=== PATIENT | male | born 1945 | race Caucasian/White ===

== ENCOUNTER 2017-05-31 09:54 | Emergency (ER) | payer MEDICARE, BC ==
[~2017-05-31] VITALS: Ht 182.9 cm; Wt 82.0 kg
[~2017-05-31 09:54] MED LIST: CYCL-36 PO; SERT25TA83 PO; TRAM50 PO
[2017-05-31 10:05] VITALS: BP 139/65; PULSE 62; RESP 16; TEMP 97.3; O2SAT 100
[2017-05-31] MEDS ORDERED: FLUO-1 PO (10:20)
--- NOTE | 2017-05-31 10:57 | PD ---
HPI Chief Complaint: Lump, Cyst, Hernia Time Seen by Provider: 10:24 Travel History International Travel<30 days: No Contact w/Intl Traveler<30days: No Traveled to known affect area: No History of Present Illness HPI This 71-year-old male is complaining of right inguinal pain. He has had several episodes of pain in the right inguinal area. They seem to be aggravated by certain movements. He had seen his physician a few weeks ago and was told that he had an inguinal hernia. He did have a CT scan of his abdomen and pelvis here in 2014 which showed that he had bilateral fat-containing hernias in the inguinal areas. There has not been any vomiting or diarrhea. He is not having pain right now. He is leaving town in a few days and is concerned that the pain may recur. He has a history of kidney stones. He has also had deep vein thrombosis and has been on Coumadin for the past though he is not on it now area. On his CAT scan in March 2015 he had right-sided perinephric stranding and mild hydronephrosis and hydroureter but no evidence of a ureteral stone. PFSH Past Medical History Depression: Yes Diminished Hearing: No Deep Vein Thrombosis: Yes Inguinal Hernia: Yes Tetanus Vaccination: Unknown Influenza Vaccination: No Social History Alcohol Use: Yes (BEER, OCCASIONALLY) Tobacco Use: No Substance Use: No Allergies-Medications (Allergen,Severity, Reaction): Coded Allergies: No Known Allergies (Unverified , 05/31/17) Reported Meds & Prescriptions Reported Meds & Active Scripts Active Reported Prozac (Fluoxetine HCl) 10 Mg Cap 10 Mg PO HS Review of Systems General / Constitutional: No: Fever, Chills Respiratory: No: Cough Gastrointestinal: No: Vomiting, Diarrhea Genitourinary: No: Urgency, Frequency, Hematuria Musculoskeletal: No: Myalgias, Arthralgias Skin: No Rash, No Itching Neurologic: No: Weakness Hematologic/Lymphatic: No: Easy Bruising Physical Exam Narrative GENERAL: Well-developed male SKIN: Focused skin assessment warm/dry. HEAD: Atraumatic. Normocephalic. EYES: Pupils equal and round. No scleral icterus. No injection or drainage. ENT: No nasal bleeding or discharge. Mucous membranes pink and moist. NECK: Trachea midline. No JVD. CARDIOVASCULAR: Regular rate and rhythm. No murmur appreciated. RESPIRATORY: No accessory muscle use. Clear to auscultation. Breath sounds equal bilaterally. GASTROINTESTINAL: Abdomen soft, non-tender, nondistended. Hepatic and splenic margins not palpable. I do not feel any inguinal hernia laying or standing. MUSCULOSKELETAL: No obvious deformities. No clubbing. No cyanosis. No edema. NEUROLOGICAL: Awake and alert. No obvious cranial nerve deficits. Motor grossly within normal limits. Normal speech. PSYCHIATRIC: Appropriate mood and affect; insight and judgment normal. Data Data Last Documented VS Vital Signs Date Time Temp Pulse Resp B/P (MAP) Pulse Ox O2 Delivery O2 Flow Rate FiO2 05/31/17 10:18 16 05/31/17 10:05 97.3 62 139/65 (89) 100 Orders Orders Complete Blood Count With Diff (05/31/17 10:49) Comprehensive Metabolic Panel (05/31/17 10:49) Urinalysis - C+S If Indicated (05/31/17 10:49) Ct Abd/Pel W Iv Contrast(Rout) (05/31/17 10:49) Iohexol 350 Inj (Omnipaque 350 Inj) (05/31/17 12:12) Labs Laboratory Tests Test 05/31/17 11:13 05/31/17 11:30 White Blood Count 6.2 TH/MM3 Red Blood Count 5.20 MIL/MM3 Hemoglobin 15.1 GM/DL Hematocrit 45.7 % Mean Corpuscular Volume 87.9 FL Mean Corpuscular Hemoglobin 29.0 PG Mean Corpuscular Hemoglobin Concent 33.0 % Red Cell Distribution Width 13.1 % Platelet Count 154 TH/MM3 Mean Platelet Volume 6.9 FL Neutrophils (%) (Auto) 69.2 % Lymphocytes (%) (Auto) 20.4 % Monocytes (%) (Auto) 8.7 % Eosinophils (%) (Auto) 0.9 % Basophils (%) (Auto) 0.8 % Neutrophils # (Auto) 4.3 TH/MM3 Lymphocytes # (Auto) 1.3 TH/MM3 Monocytes # (Auto) 0.5 TH/MM3 Eosinophils # (Auto) 0.1 TH/MM3 Basophils # (Auto) 0.0 TH/MM3 CBC Comment DIFF FINAL Differential Comment Blood Urea Nitrogen 10 MG/DL Creatinine 0.93 MG/DL Random Glucose 106 MG/DL Total Protein 7.5 GM/DL Albumin 4.1 GM/DL Calcium Level 8.8 MG/DL Alkaline Phosphatase 50 U/L Aspartate Amino Transf (AST/SGOT) 19 U/L Alanine Aminotransferase (ALT/SGPT) 29 U/L Total Bilirubin 1.4 MG/DL Sodium Level 139 MEQ/L Potassium Level 4.0 MEQ/L Chloride Level 103 MEQ/L Carbon Dioxide Level 28.1 MEQ/L Anion Gap 8 MEQ/L Estimat Glomerular Filtration Rate 80 ML/MIN Urine Collection Type VOIDED Urine Color YELLOW Urine Turbidity CLEAR Urine pH 7.5 Urine Specific [place] 1.015 Urine Protein NEG mg/dL Urine Glucose (UA) NEG mg/dL Urine Ketones NEG mg/dL Urine Occult Blood NEG Urine Nitrite NEG Urine Bilirubin NEG Urine Leukocyte Esterase NEG Urine WBC 0-2 /hpf Microscopic Urinalysis Comment CULT NOT INDICATED MDM Medical Decision Making Medical Screen Exam Complete: Yes Emergency Medical Condition: Yes Medical Record Reviewed: Yes Differential Diagnosis Differential includes renal colic, hernia, space-occupying lesion, muscular strain Narrative Course On examination I did not find any evidence of hernia. Patient is very concerned because he is going away a few days and is concerned he might have episodes of pain. He does say that he had an episode while in the ER the last just a few minutes. This pain is not typical of incarcerated hernia. He does not notice any swelling. It may be musculoskeletal in origin. An evaluation was done. His CBC and urinalysis are negative. CT scan of the abdomen and pelvis was done to assess for other etiologies of the pain and is negative Diagnosis Primary Impression: Right inguinal pain Additional Instructions: Follow-up with general surgeon for evaluation Disposition: 01 DISCHARGE HOME Condition: Stable Gaetano Jones MD May 31, 2017 10:57
[2017-05-31 11:18] LABS: AUTOMATED NEUTROPHIL # 4.3 TH/MM3 (1.8-7.7); BASOPHIL % 0.8 % (0.0-2.0); EOSINOPHIL # 0.1 TH/MM3 (0-0.4); EOSINOPHIL % 0.9 % (0.0-4.0); HEMATOCRIT 45.7 % (39.0-51.0); HEMO FLAGS DIFF FINAL; LYMPH % 20.4 % (9.0-44.0); LYMPHOCYTE # 1.3 TH/MM3 (1.0-4.8); MEAN CELL VOLUME 87.9 FL (80.0-100.0); MONO % 8.7 % (0.0-8.0); NEUT % 69.2 % (16.0-70.0); PLATELET COUNT 154 TH/MM3 (150-450); RED CELL DISTRIBUTION WIDTH 13.1 % (11.6-17.2); WHITE BLOOD COUNT 6.2 TH/MM3 (4.0-11.0)
[2017-05-31 11:26] LABS: BLOOD, URINE NEG (NEG); GLUCOSE,URINE NEG (NEG); KETONE, URINE NEG (NEG); NITRITE,URINE NEG (NEG); PH, URINE 7.5 (5.0-8.5)
[2017-05-31 11:27] LABS: CHLORIDE 103 MEQ/L (98-107); SODIUM (NA) 139 MEQ/L (136-145)
[2017-05-31 11:31] LABS: ANION GAP 8 MEQ/L (5-15); BICARBONATE 28.1 MEQ/L (21.0-32.0); BLOOD UREA NITROGEN 10 MG/DL (7-18)
[2017-05-31 11:33] LABS: ALT (GPT) 29 U/L (12-78)
[2017-05-31 11:34] LABS: AST (GOT) 19 U/L (15-37); GLOMERULAR FILTRATION RATE 80 ML/MIN (>89)
[2017-05-31 11:35] LABS: TOTAL BILIRUBIN ADULT 1.4 MG/DL (0.2-1.0)
[2017-05-31 11:36] LABS: ALKALINE PHOSPHATASE 50 U/L (45-117)
[2017-05-31 11:47] LABS: COMMENT (UR) CULT NOT INDICATED; CULTURE IF INDICATED CULT NOT INDICATED; METHOD OF COLLECTION VOIDED; URINE COLOR YELLOW (YELLW/STRAW); WBC, URINE 0-2 /hpf (0-5)
[2017-05-31] MEDS ORDERED: IOHEXOL 350 MG/ML 10 ML VIAL (for RAD DIAG) IVCONTRAST ONE (12:12)
--- NOTE | 2017-05-31 12:18 | RADRPT ---
EXAM DATE/TIME: 05/31/2017 12:04 [facility] COMPARISON: CT ABDOMEN & PELVIS W/O CONTRAST, March 20, 2015, 17:32. INDICATIONS : Intermittent right inguinal pain for a few days. IV CONTRAST: 95 cc Omnipaque 350 (iohexol) IV ORAL CONTRAST: No oral contrast ingested. RADIATION DOSE: 15.55 CTDIvol (mGy) MEDICAL HISTORY : Deep venous thrombosis. Hernia, inguinal. SURGICAL HISTORY : None. ENCOUNTER: Initial ACUITY: 3 days PAIN SCALE: 6/10 LOCATION: Right imguinal TECHNIQUE: Volumetric scanning of the abdomen and pelvis was performed. Using automated exposure control and ad justment of the mA and/or kV according to patient size, radiation dose was kept as low as reasonably achievable to obtain optimal diagnostic quality images. DICOM format image data is available electro nically for review and comparison. FINDINGS: Lung bases are clear. Numerous calcified splenic granulomas are present. No pleural or pericardial ef fusions. Small cyst in the lateral segment left hepatic lobe. Gallbladder, pancreas, adrenal glands, right kidney unremarkable. Sub-centimeters left midpole kidney laterally. Atherosclerotic calcificati on of the aorta and iliac vessels are noted. Bilateral fat containing inguinal hernias. Prostate glan d is prominent measuring 5.7 x 4.5 cm in transverse and AP dimension. Urinary bladder unremarkable yo ur small bowel, large bowel and appendix are unremarkable. No evidence of bowel obstruction, free flu id or free air. Osseous structures demonstrate degenerative changes of the spine. CONCLUSION: No acute disease. Vadim Robin MD on May 31, 2017 at 12:15 Board Certified Radiologist. This report was verified electronically.
[2017-05-31 12:50] VITALS: BP 177/84; PULSE 56; RESP 16; O2SAT 100
== END 2017-05-31 12:55 | disposition home or self-care (01) ==
LOC: PHED 09:54
DX: R10.31 Right lower quadrant pain (principal); Z87.442 Personal history of urinary calculi; Z86.718 Personal history of other venous thrombosis and embolism
CPT/HCPCS: 74177; 80053; 81001; 85025; 99284; Q9967

== ENCOUNTER 2018-02-03 05:28 | Observation (INO) | payer MEDICARE, BC ==
[2018-02-03] VITALS (13 sets, daily range): BP systolic 132–171; BP diastolic 68–86; PULSE 47–72; RESP 16–20; TEMP 97.2–98; O2SAT 98–100
[~2018-02-03 05:28] MED LIST changes: -CYCL-36 PO; +FLUO-1 PO; -SERT25TA83 PO; -TRAM50 PO
[2018-02-03] MEDS ORDERED: SODIUM CHLORIDE 0.9% FLUSH 10 ML FLUSH IVF PRN (06:00)
[2018-02-03] MEDS ORDERED: NITROGLYCERIN 2% OINT 1 GM PACKET TOP ONE (06:00)
--- NOTE | 2018-02-03 06:02 | PD ---
HPI Chief Complaint: Chest Pain Time Seen by Provider: 05:56 Travel History International Travel<30 days: No Contact w/Intl Traveler<30days: No Traveled to known affect area: No History of Present Illness HPI 72-year-old male presents to the emergency department by EMS transport from home for evaluation of retrosternal chest pain. Pain onset around 11 PM prior to going to bed awakened at 1 AM reportedly with indigestion and heartburn gave him a dose of Tagamet with no improvement of symptoms at 2 AM she gave him baking soda again with no relief by 4 AM symptoms are worsening she given Pepto- Bismol and he insisted that he come to the hospital. Pain at onset was 10/10 intensity. According to paramedics they provided the patient with aspirin 324 mg prior to arrival to the emergency department and the patient received 3 sublingual nitroglycerin. Patient reports his discomfort now 2/10 intensity. No sweats no nausea no vomiting no shortness of breath no referred neck jaw back shoulder arm pain. No prior history of chest pain. Patient denies history of CAD hypertension dyslipidemia diabetes tobaccoism or family history of premature onset heart disease. Patient is followed for depression and pseudodementia. Patient is prescribed Prozac and trazodone. 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 Patient states that he is unable to identify exacerbating or alleviating factors. Patient according to is typically very private and does not like to share information so presents as a very stoic individual not sharing discomfort or symptoms easily but states she can substantiate his presentation and his symptom onset and duration as being present since 11 PM and his persona, speech , and behavior typical for him. No new change in mentation no new change in speech no new noted upper extremity or lower extremity numbness tingling or weakness PFSH Past Medical History Narrative Medical Anxiety depression pseudodementia inguinal herniorrhaphy occasional alcohol use ; nursing notes reviewed Anxiety: Yes Depression: Yes Diminished Hearing: No Deep Vein Thrombosis: Yes Inguinal Hernia: Yes Immunizations Current: No Social History Alcohol Use: Yes (BEER, OCCASIONALLY) Tobacco Use: No Substance Use: No Allergies-Medications (Allergen,Severity, Reaction): Coded Allergies: No Known Allergies (Unverified Adverse Reaction, Unknown, 02/03/18) Reported Meds & Prescriptions Reported Meds & Active Scripts Active Reported Prozac (Fluoxetine HCl) 10 Mg Cap 10 Mg PO HS Narrative Medication Prozac trazodone Review of Systems Except as stated in HPI: all other systems reviewed are Neg Physical Exam Narrative GENERAL: Well-developed well-nourished male no acute distress no respiratory distress SKIN: Warm and dry. HEAD: Normocephalic. EYES: No scleral icterus. No injection or drainage. NECK: Supple, trachea midline. No JVD or lymphadenopathy. CARDIOVASCULAR: Regular rate and rhythm without murmurs, gallops, or rubs. RESPIRATORY: Breath sounds equal bilaterally. No accessory muscle use. GASTROINTESTINAL: Abdomen soft, non-tender, nondistended. MUSCULOSKELETAL: No cyanosis, or edema. BACK: Nontender without obvious deformity. No CVA tenderness. Data Data Last Documented VS Vital Signs Date Time Temp Pulse Resp B/P (MAP) Pulse Ox O2 Delivery O2 Flow Rate FiO2 02/03/18 05:42 54 98 Room Air 02/03/18 05:38 97.9 16 142/68 (92) Orders Orders Electrocardiogram (02/03/18 05:56) Basic Metabolic Panel (Bmp) (02/03/18 05:56) Ckmb (Isoenzyme) Profile (02/03/18 05:56) Complete Blood Count With Diff (02/03/18 05:56) Magnesium (Mg) (02/03/18 05:56) Prothrombin Time / Inr (Pt) (02/03/18 05:56) Act Partial Throm Time (Ptt) (02/03/18 05:56) Troponin I (02/03/18 05:56) Ecg Monitoring (02/03/18 05:56) Bilateral Bp Monitoring (02/03/18 05:56) Iv Access Insert/Monitor (02/03/18 05:56) Oximetry (02/03/18 05:56) Oxygen Administration (02/03/18 05:56) Nitroglycerin 2% Oint (Nitroglycerin 2% (02/03/18 06:00) Sodium Chloride 0.9% Flush (Ns Flush) (02/03/18 06:00) Chest, Single Ap (02/03/18 ) MDM Medical Decision Making Medical Screen Exam Complete: Yes Emergency Medical Condition: Yes Medical Record Reviewed: Yes Interpretation(s) EKG sinus bradycardia rate [address] elevation injury pattern or ectopy noted Differential Diagnosis Chest pain atypical chest pain ACS DC PE aortic dissection esophageal spasm gastritis peptic ulcer disease cholecystitis Narrative Course Patient placed on cardiac cath rn IV access obtained specimens collected and sent for resulting EKG is bradycardia without acute ST elevation or injury pattern; patient is already received 3 sublingual nitroglycerin and aspirin due to 24 mg provided by paramedics prior to arrival to the emergency department. Patient's pain is decreased from 10/10 intensity down to 2/10 intensity 1 inch Nitropaste ordered to be applied to the chest wall all lab values are being resulted. Diagnosis Primary Impression: Chest pain Elizabeth Ball MD February 03, 2018 06:02
[2018-02-03 06:39] LABS: BICARBONATE 26.3 MEQ/L (21.0-32.0); BLOOD UREA NITROGEN 13 MG/DL (7-18); CALCIUM 8.5 MG/DL (8.5-10.1); CHLORIDE 108 MEQ/L (98-107); CREATININE 0.95 MG/DL (0.60-1.30); GLOMERULAR FILTRATION RATE 78 ML/MIN (>89); GLUCOSE,RANDOM 92 MG/DL (74-106); MAGNESIUM 2.2 MG/DL (1.5-2.5); SODIUM (NA) 142 MEQ/L (136-145)
[2018-02-03 06:44] LABS: TROPONIN I LESS THAN 0.02 NG/ML (0.02-0.05)
--- NOTE | 2018-02-03 07:00 | RADRPT ---
EXAM DATE: 02/03/2018 6:45 AM EDT AGE/SEX: 72 years / Male INDICATIONS: Chest pain that resolved. CLINICAL DATA: This is the patient's initial encounter. Patient reports that signs and symptoms have been present for 1 day and indicates a pain score of 0/10. MEDICAL/SURGICAL HISTORY: None. None. COMPARISON: No prior exams available for comparison. FINDINGS: The lungs are clear without infiltrate, nodule, or mass. There is no appreciable pleural effusion for technique. Heart and mediastinum are unremarkable. 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 CONCLUSION: No acute cardiopulmonary disease. Electronically signed by: Ana Pillai MD 02/03/2018 6:58 AM EDT
[2018-02-03] MEDS ORDERED: IOHEXOL 350 MG/ML 50 ML BTL (for Cath Lab) OTHER ONE (07:12)
[2018-02-03] MEDS ORDERED: IOHEXOL 350 MG/ML 100 ML BTL (for Cath Lab) OTHER ONE (07:12)
[2018-02-03] MEDS ORDERED: SODIUM CHLORIDE 0.9% FLUSH 10 ML FLUSH IV FLUSH PRN ×2 (07:15→11:00)
[2018-02-03] MEDS ORDERED: TRAZ50TA12 PO (07:40)
[2018-02-03 08:26] LABS: AUTOMATED NEUTROPHIL # 4.1 TH/MM3 (1.8-7.7); BASOPHIL % 0.4 % (0.0-2.0); EOSINOPHIL # 0.1 TH/MM3 (0-0.4); EOSINOPHIL % 1.5 % (0.0-4.0); HEMATOCRIT 40.6 % (39.0-51.0); HEMOGLOBIN 13.8 GM/DL (13.0-17.0); LYMPH % 20.4 % (9.0-44.0); LYMPHOCYTE # 1.2 TH/MM3 (1.0-4.8); MEAN CELL VOLUME 86.8 FL (80.0-100.0); MEAN CORPUSCULAR HEMOGLOBIN 29.5 PG (27.0-34.0); MEAN CORPUSCULAR HGB CONC 33.9 % (32.0-36.0); MEAN PLATELET VOLUME 7.3 FL (7.0-11.0); MONO % 9.8 % (0.0-8.0); MONOCYTE # 0.6 TH/MM3 (0-0.9); NEUT % 67.9 % (16.0-70.0); PLATELET COUNT 130 TH/MM3 (150-450); RED BLOOD COUNT 4.68 MIL/MM3 (4.50-5.90); RED CELL DISTRIBUTION WIDTH 13.9 % (11.6-17.2)
[2018-02-03 08:41] LABS: INTERNATIONAL NORMALIZED RATIO 1.1 RATIO; PROTHROMBIN TIME - PATIENT 11.1 SEC (9.8-11.6)
[2018-02-03 08:46] LABS: TROPONIN I 0.08 NG/ML (0.02-0.05)
--- NOTE | 2018-02-03 10:32 | HHI.HP ---
HPI Primary Care Physician Cynthia Gregg Chief Complaint Chest pain History of Present Illness This is a 72-year-old male the presents to ED via [facility] with a complaint substernal chest that began around midnight last night. States he was getting ready for bed when it began. Describes it as a tightness. He was not short of breath, nauseous, or diaphoretic. He thought it was heartburn at first. His given Tagamet without relief. He then took 1/2 teaspoon of baking soda without relief. Also tried Pepto-Bismol without relief. His symptoms did seem to last for a few hours until he called 911. He does not recall them giving him sublingual nitroglycerin however his states that they gave him to use a little nitroglycerin. Patient states he had too much going on in there doing so much she really does not recall was given. He does state the discomfort resolved while he was in the ambulance. Estimates discomfort lasted about 4-5 hours. Found nothing to worsen or improve the symptoms. Denies history of CAD. Denies hypertension, hyperlipidemia, diabetes, and CAD. Had history of a DVT in 1 of his lower extremities and 2014 but states he has had no other otherwise been healthy. Denies recent illness. Denies fevers or chills. Currently denies chest discomfort. Review of Systems General: Patient denies fevers, chills, and recent travel. HEENT: Patient denies headache, sore throat, difficulty swallowing. Cardiovascular: Has the chest discomfort as mentioned above. Denies sensation of heart beating rapidly or irregularly. No syncope. Denies diaphoresis. Respiratory: Denies shortness of breath or inspirational chest discomfort. Denies coughing wheezing or hemoptysis. GI: Patient denies nausea, vomiting, diarrhea, abdominal pain, bloody stools. Musculoskeletal: Patient denies joint pain or edema. Denies calf pain or edema. Neurovascular: Patient denies numbness, tingling, weakness in extremities. Denies headache. Endocrine: Denies polyuria and polydipsia. Hematologic: Denies easy bruising. Skin: Denies rash or itching. Past Family Social History Allergies: Coded Allergies: No Known Allergies (Unverified Allergy, Unknown, 02/03/18) Past Medical History History of DVT in a lower extremity 2009. He had finished Coumadin therapy. Denies hypertension, hyperlipidemia, diabetes, and known CAD. Past Surgical History Noncontributory. Reported Medications Reported Meds & Active Scripts Active Reported Trazodone (Trazodone HCl) 50 Mg Tab 50 Mg PO HS Prozac (Fluoxetine HCl) 10 Mg Cap 10 Mg PO HS Active Ordered Medications Current Medications Medications (Trade) Dose Ordered Sig/Leydi Route Start Time Stop Time Status Last Admin (NS Flush) 2 ml UNSCH PRN IVF 02/03/18 06:00 (NS Flush) 2 ml UNSCH PRN IV FLUSH 02/03/18 07:15 (NS Flush) 2 ml BID IV FLUSH 02/03/18 09:00 Family History States his father had an MN in his 60s. Social History Lifetime non-smoker. Rarely has alcohol. Denies illicit drugs. He is . Physical Exam Vital Signs Vital Signs Date Time Temp Pulse Resp B/P (MAP) Pulse Ox O2 Delivery O2 Flow Rate FiO2 02/03/18 08:30 100 Nasal Cannula 2.00 02/03/18 08:30 16 100 Nasal Cannula 2.00 02/03/18 07:38 72 16 136/77 (96) 100 02/03/18 07:34 59 18 132/71 (91) 100 02/03/18 06:00 52 16 98 Room Air 02/03/18 06:00 98 02/03/18 05:42 54 98 Room Air 02/03/18 05:38 97.9 52 16 142/68 (92) 98 Physical Exam GENERAL: This is a well-nourished, well-developed patient, in no apparent distress. Patient speaks in clear complete sentences. Patient is pleasant. HEENT: Head is atraumatic and normocephalic. Neck is supple without lymphadenopathy and trachea is midline. No JVD or carotid bruits. CARDIOVASCULAR: Regular rate and rhythm without murmurs, gallops, or rubs. RESPIRATORY: Clear to auscultation. Breath sounds equal bilaterally. No wheezes , rales, or rhonchi. Chest wall is nontender. No use of accessory muscles. GASTROINTESTINAL: Abdomen is nontender, nondistended. Abdomen soft. No obvious pulsatile mass or bruit. No CVA tenderness. Strong femoral pulses bilaterally. Normal bowel sounds in all quadrants. MUSCULOSKELETAL: Patient is moving upper and lower extremities freely. No calf tenderness or edema, no Homans sign. Strong pulses in upper and lower extremities. NEUROLOGICAL: Patient is alert and oriented. Cranial nerves 2-12 are grossly intact. No focal deficits and speech is clear. SKIN: No rash and turgor is normal. Laboratory Laboratory Tests Test 02/03/18 06:00 02/03/18 08:15 Blood Urea Nitrogen 13 Creatinine 0.95 Random Glucose 92 Calcium Level 8.5 Magnesium Level 2.2 Sodium Level 142 Potassium Level 3.8 Chloride Level 108 Carbon Dioxide Level 26.3 Anion Gap 8 Estimat Glomerular Filtration Rate 78 Total Creatine Kinase 133 121 Creatine Kinase MB 1.0 1.4 Troponin I LESS THAN 0.02 0.08 White Blood Count 6.0 Red Blood Count 4.68 Hemoglobin 13.8 Hematocrit 40.6 Mean Corpuscular Volume 86.8 Mean Corpuscular Hemoglobin 29.5 Mean Corpuscular Hemoglobin Concent 33.9 Red Cell Distribution Width 13.9 Platelet Count 130 Mean Platelet Volume 7.3 Neutrophils (%) (Auto) 67.9 Lymphocytes (%) (Auto) 20.4 Monocytes (%) (Auto) 9.8 Eosinophils (%) (Auto) 1.5 Basophils (%) (Auto) 0.4 Neutrophils # (Auto) 4.1 Lymphocytes # (Auto) 1.2 Monocytes # (Auto) 0.6 Eosinophils # (Auto) 0.1 Basophils # (Auto) 0.0 CBC Comment DIFF FINAL Differential Comment Prothrombin Time 11.1 Prothromb Time International Ratio 1.1 Activated Partial Thromboplast Time 19.8 Result Diagram: 02/03/18 0815 02/03/18 0600 Imaging Last 48 hours Impressions Chest X-Ray 02/03/18 0000 Signed Impressions: CONCLUSION: No acute cardiopulmonary disease. Course Initial EKG is sinus bradycardia with nonspecific T-wave changes. Caprini VTE Risk Assessment Caprini VTE Risk Assessment: Mod/High Risk (score >= 2) Caprini Risk Assessment Model Point Value = 1 Point Value = 2 Point Value = 3 Point Value = 5 Age 41-60 Minor surgery BMI > 25 kg/m2 Swollen legs Varicose veins or History of unexplained or recurrent spontaneous Oral contraceptives or hormone replacement Sepsis (< 1 month) Serious lung disease, including pneumonia (< 1 month) Abnormal pulmonary function Acute myocardial infarction Congestive heart failure (< 1 month) History of inflammatory bowel disease Medical patient at bed rest Age 61-74 Arthroscopic surgery Major open surgery (> 45 min) Laparoscopic surgery (> 45 min) Malignancy Confined to bed (> 72 hours) Immobilizing plaster cast Central venous access Age >= 75 History of VTE Family history of VTE Factor V Leiden Prothrombin [id number] Lupus anticoagulant Anticardiolipin antibodies Elevated serum homocysteine Heparin-induced thrombocytopenia Other congenital or acquired thrombophilia Stroke (< 1 month) Elective arthroplasty Hip, pelvis, or leg fracture Acute spinal cord injury (< 1 month) Prophylaxis Regimen Total Risk Factor Score Risk Level Prophylaxis Regimen 0-1 Low Early ambulation 2 Moderate Order ONE of the following: *Sequential Compression Device (SCD) *Heparin 5000 units SQ BID 3-4 Higher Order ONE of the following medications: *Heparin 5000 units SQ TID *Enoxaparin/Lovenox 40 mg SQ daily (WT < 150 kg, CrCl > 30 mL/min) *Enoxaparin/Lovenox 30 mg SQ daily (WT < 150 kg, CrCl > 10-29 mL/min) *Enoxaparin/Lovenox 30 mg SQ BID (WT < 150 kg, CrCl > 30 mL/min) AND/OR *Sequential Compression Device (SCD) 5 or more Highest Order ONE of the following medications: *Heparin 5000 units SQ TID (Preferred with Epidurals) *Enoxaparin/Lovenox 40 mg SQ daily (WT < 150 kg, CrCl > 30 mL/min) *Enoxaparin/Lovenox 30 mg SQ daily (WT < 150 kg, CrCl > 10-29 mL/min) *Enoxaparin/Lovenox 30 mg SQ BID (WT < 150 kg, CrCl > 30 mL/min) AND *Sequential Compression Device (SCD) Assessment and Plan Assessment and Plan * Chest pain: Patient presented to ED for chest pain. Was made at the chest pain center. He was to have cardiac enzymes for ruling out purposes and possible stress test however a second troponin elevated to 0.08. Patient will be evaluated by Dr. Simms cardiology in the chest pain center. Patient will need admission to hospitalist with pipe changer consult. I will be discussed this patient with Dr. Diaz of cardiology to get further plan. Patient has been made aware of his abnormal troponin and this plan. He is agreeable to this plan. Patient will have Nitrol ointment placed on his chest as well as beta-amnauel started. He already was given aspirin via [facility]. Jaguar Irwin February 03, 2018 10:32
[2018-02-03] MEDS: METOPROLOL TARTRATE 25 MG TAB PO SCH ×2 (11:58→21:00)
[2018-02-03] MEDS: ATORVASTATIN 20 MG TAB PO SCH (11:58)
[2018-02-03] MEDS: SODIUM CHLORIDE 0.9% FLUSH 10 ML FLUSH IV FLUSH SCH ×2 (11:58→21:00)
[2018-02-03] MEDS ORDERED: HEPARIN-D5W 25,000 U/250 ML 250 ML IV PRN (12:30)
--- NOTE | 2018-02-03 12:50 | MB ---
cc: Angel Luis Diaz MD DATE: 02/03/2018 INDICATION: Non-ST elevation myocardial infarction. HISTORY OF PRESENT ILLNESS: This is a very nice, 72-year-old gentleman without prior history of known heart disease. He does have a history of prior DVT back in 2009, but had completed anticoagulation therapy. No other major cardiovascular risk factors. He developed substernal chest pain last night, came in to the emergency department and despite the GI cocktail symptoms did not resolve. His first troponin is positive. He was going to be transferred to the chest pain center, but now he is going to be admitted and we were consulted for further recommendations. PAST MEDICAL HISTORY: Deep venous thrombosis. ALLERGIES: NO KNOWN DRUG ALLERGIES. MEDICATIONS: Trazodone, Prozac. FAMILY HISTORY: Denies any family history of early coronary artery disease or sudden cardiac . SOCIAL HISTORY: Denies alcohol, tobacco or drug use. REVIEW OF SYSTEMS: A 12-point review of systems was performed, negative unless otherwise noted in history of present illness. PHYSICAL EXAMINATION: VITAL SIGNS: Temperature is normal, pulse is 58, blood pressure 154/72 mmHg. GENERAL: Alert and oriented x3, in no acute distress. HEENT: Shows pupils reactive to light and accommodation. Extraocular muscles intact. NECK: No elevation in jugular venous distension. No thyromegaly or lymphadenopathy. No carotid bruits. LUNGS: Clear to auscultation bilaterally. CARDIOVASCULAR: Regular rate and rhythm without murmurs, rubs or gallops. ABDOMEN: Nontender, nondistended with good bowel sounds. No hepatosplenomegaly. EXTREMITIES: No clubbing, cyanosis or edema. Good peripheral pulses. NEUROLOGIC: Cranial nerves intact. Motor and sensory grossly intact. LABORATORY DATA: WBC 6.0, hemoglobin 13.9, platelet count is 130. INR is 1.1. Sodium 142, potassium 3.8, BUN 13, creatinine 0.95. Troponin is elevated at 0.08. Electrocardiogram unremarkable. ASSESSMENT: 1. Non-ST elevation myocardial infarction. 2. History of deep venous thrombosis. PLAN: Given the suggestive symptoms along with elevated troponin, I will proceed with cardiac catheterization. I will start him on a heparin drip. The patient is currently chest pain free. N.p.o. after midnight. The patient is agreeable. Angel Luis Diaz MD FAMILIA/TL , 12:28 PM , 12:49 PM
--- NOTE | 2018-02-03 13:00 | HHI.HP ---
[facility] Service [facility] Primary Care Physician Cynthia Gregg Admission Diagnosis Chest pain Diagnoses: (1) Anxiety (2) Chest pain (3) Elevated troponin I level Chief Complaint: Chest pain Travel History International Travel<30 Days: No Contact w/Intl Traveler <30 Da: No Traveled to Known Affected Are: No History of Present Illness The patient is a 72-year-old male who presented to the emergency department with complaint of substernal chest pain that started around midnight. The pain was described as sharp, tight. Denies dyspnea, nausea, vomiting, diaphoresis. The patient informed his about the discomfort and they tried multiple remedies for heartburn, none of which provided any relief. Chest pain resolved when he received nitroglycerin from [facility]. He was initially admitted to the chest pain center. Troponin increased and decision was made to admit to the medical service with cardiology consult. No chest pain currently. Patient denies any history of heart problems. Review of Systems Constitutional: DENIES: Fever, Chills, Night Sweats Eyes: DENIES: Blurred vision, Vision loss Ears, nose, mouth, throat: DENIES: Hearing loss Respiratory: DENIES: Cough, Wheezing, Sputum production, Shortness of breath Cardiovascular: COMPLAINS OF: Chest pain, DENIES: Palpitations, Dyspnea on Exertion, Lower Extremity Edema Gastrointestinal: DENIES: Abdominal pain, Constipation, Diarrhea, Nausea, Vomiting Genitourinary: DENIES: Urinary frequency, Urinary incontinence, Urgency, Hematuria, Dysuria, Nocturia Musculoskeletal: DENIES: Joint pain, Muscle aches Integumentary: DENIES: Pruritus, Rash Hematologic/lymphatic: DENIES: Bruising Neurologic: DENIES: Headache Past Family Social History Past Medical History History of lower extremity DVT in 2010 Anxiety/depression Past Surgical History None Reported Medications Trazodone (Trazodone HCl) 50 Mg Tab 50 Mg PO HS Prozac (Fluoxetine HCl) 10 Mg Cap 10 Mg PO HS Allergies: Coded Allergies: No Known Allergies (Unverified Allergy, Unknown, 02/03/18) Family History Questionable family history of heart disease. Patient thinks that his father may have had heart problems, but is not sure. Social History Denies tobacco use. Rare alcohol use. Denies illicit drug use. Physical Exam Vital Signs Vital Signs Date Time Temp Pulse Resp B/P (MAP) Pulse Ox O2 Delivery O2 Flow Rate FiO2 02/03/18 12:34 98.0 49 135/70 (91) 98 02/03/18 12:07 02/03/18 11:30 58 16 154/72 (99) 100 Nasal Cannula 2.00 02/03/18 10:30 56 18 153/73 (99) 100 Nasal Cannula 2.00 02/03/18 09:30 54 18 139/84 (102) 100 Nasal Cannula 2.00 02/03/18 08:30 100 Nasal Cannula 2.00 02/03/18 08:30 16 100 Nasal Cannula 2.00 02/03/18 07:38 72 16 136/77 (96) 100 02/03/18 07:34 59 18 132/71 (91) 100 02/03/18 06:00 52 16 98 Room Air 02/03/18 06:00 98 02/03/18 05:42 54 98 Room Air 02/03/18 05:38 97.9 52 16 142/68 (92) 98 Physical Exam GENERAL: Well-nourished, well-developed male in no acute distress. HEENT: Normocephalic, atraumatic. Pupils equal, round and reactive. Extraocular movements intact. No scleral icterus. No injection or drainage. Oropharynx is clear. Mucous membranes are moist. CARDIOVASCULAR: Regular rate and rhythm without murmurs, gallops, or rubs. RESPIRATORY: Clear to auscultation. No wheezes, rales, or rhonchi. Breathing is non-labored. GASTROINTESTINAL: Abdomen soft, non-tender, nondistended. EXTREMITIES: No lower extremity edema. No calf tenderness. PSYCH: Alert and oriented x 3. Somewhat anxious. Laboratory Laboratory Tests Test 02/03/18 06:00 02/03/18 08:15 Blood Urea Nitrogen 13 Creatinine 0.95 Random Glucose 92 Calcium Level 8.5 Magnesium Level 2.2 Sodium Level 142 Potassium Level 3.8 Chloride Level 108 Carbon Dioxide Level 26.3 Anion Gap 8 Estimat Glomerular Filtration Rate 78 Total Creatine Kinase 133 121 Creatine Kinase MB 1.0 1.4 Troponin I LESS THAN 0.02 0.08 White Blood Count 6.0 Red Blood Count 4.68 Hemoglobin 13.8 Hematocrit 40.6 Mean Corpuscular Volume 86.8 Mean Corpuscular Hemoglobin 29.5 Mean Corpuscular Hemoglobin Concent 33.9 Red Cell Distribution Width 13.9 Platelet Count 130 Mean Platelet Volume 7.3 Neutrophils (%) (Auto) 67.9 Lymphocytes (%) (Auto) 20.4 Monocytes (%) (Auto) 9.8 Eosinophils (%) (Auto) 1.5 Basophils (%) (Auto) 0.4 Neutrophils # (Auto) 4.1 Lymphocytes # (Auto) 1.2 Monocytes # (Auto) 0.6 Eosinophils # (Auto) 0.1 Basophils # (Auto) 0.0 CBC Comment DIFF FINAL Differential Comment Prothrombin Time 11.1 Prothromb Time International Ratio 1.1 Activated Partial Thromboplast Time 19.8 Result Diagram: 02/03/18 0815 02/03/18 0600 Imaging Last Impressions Chest X-Ray 02/03/18 0000 Signed Impressions: CONCLUSION: No acute cardiopulmonary disease. Caprini VTE Risk Assessment Caprini VTE Risk Assessment: Mod/High Risk (score >= 2) Caprini Risk Assessment Model Point Value = 1 Point Value = 2 Point Value = 3 Point Value = 5 Age 41-60 Minor surgery BMI > 25 kg/m2 Swollen legs Varicose veins or History of unexplained or recurrent spontaneous Oral contraceptives or hormone replacement Sepsis (< 1 month) Serious lung disease, including pneumonia (< 1 month) Abnormal pulmonary function Acute myocardial infarction Congestive heart failure (< 1 month) History of inflammatory bowel disease Medical patient at bed rest Age 61-74 Arthroscopic surgery Major open surgery (> 45 min) Laparoscopic surgery (> 45 min) Malignancy Confined to bed (> 72 hours) Immobilizing plaster cast Central venous access Age >= 75 History of VTE Family history of VTE Factor V Leiden Prothrombin [id number] Lupus anticoagulant Anticardiolipin antibodies Elevated serum homocysteine Heparin-induced thrombocytopenia Other congenital or acquired thrombophilia Stroke (< 1 month) Elective arthroplasty Hip, pelvis, or leg fracture Acute spinal cord injury (< 1 month) Prophylaxis Regimen Total Risk Factor Score Risk Level Prophylaxis Regimen 0-1 Low Early ambulation 2 Moderate Order ONE of the following: *Sequential Compression Device (SCD) *Heparin 5000 units SQ BID 3-4 Higher Order ONE of the following medications: *Heparin 5000 units SQ TID *Enoxaparin/Lovenox 40 mg SQ daily (WT < 150 kg, CrCl > 30 mL/min) *Enoxaparin/Lovenox 30 mg SQ daily (WT < 150 kg, CrCl > 10-29 mL/min) *Enoxaparin/Lovenox 30 mg SQ BID (WT < 150 kg, CrCl > 30 mL/min) AND/OR *Sequential Compression Device (SCD) 5 or more Highest Order ONE of the following medications: *Heparin 5000 units SQ TID (Preferred with Epidurals) *Enoxaparin/Lovenox 40 mg SQ daily (WT < 150 kg, CrCl > 30 mL/min) *Enoxaparin/Lovenox 30 mg SQ daily (WT < 150 kg, CrCl > 10-29 mL/min) *Enoxaparin/Lovenox 30 mg SQ BID (WT < 150 kg, CrCl > 30 mL/min) AND *Sequential Compression Device (SCD) Assessment and Plan Assessment and Plan 1. Chest pain with mild troponin elevation: Check serial cardiac enzymes. Appreciate cardiology recommendations. Planning for catheterization tomorrow. Continue aspirin, Nitropaste. N.p.o. after midnight for procedure. Heparin drip started by cardiology. 2. Anxiety/depression: Continue home medications. 3. DVT prophylaxis: Heparin. Anthony Patton MD February 03, 2018 13:00
[2018-02-03] MEDS ORDERED: FLUoxetine HCL 10 MG CAP PO ONE (13:45)
[2018-02-03 14:35] LABS: HEMATOCRIT 37.9 % (39.0-51.0); HEMOGLOBIN 12.8 GM/DL (13.0-17.0); MEAN CELL VOLUME 86.9 FL (80.0-100.0); MEAN CORPUSCULAR HEMOGLOBIN 29.5 PG (27.0-34.0); MEAN CORPUSCULAR HGB CONC 33.9 % (32.0-36.0); MEAN PLATELET VOLUME 7.2 FL (7.0-11.0); PLATELET COUNT 123 TH/MM3 (150-450); RED BLOOD COUNT 4.36 MIL/MM3 (4.50-5.90); RED CELL DISTRIBUTION WIDTH 13.7 % (11.6-17.2); WHITE BLOOD COUNT 5.3 TH/MM3 (4.0-11.0)
[2018-02-03] MEDS: NITROGLYCERIN 2% OINT 1 GM PACKET TOPICAL SCH ×2 (14:42→17:35)
[2018-02-03 14:46] LABS: INTERNATIONAL NORMALIZED RATIO 1.1 RATIO; PROTHROMBIN TIME - PATIENT 11.4 SEC (9.8-11.6)
--- NOTE | 2018-02-03 15:01 | EKG ---
Date Performed: 02/03/2018 Time Performed: 05:39:04 PTAGE: 72 years EKG: SINUS BRADYCARDIA BORDERLINE ECG Since the PREVIOUS TRACING , no significant change noted PREVIOUS TRACIN03/19/2015 19.54 DOCTOR: Jamie Nickerson Interpretating Date/Time 02/03/2018 15:01:38
--- NOTE | 2018-02-03 15:02 | EKG ---
Date Performed: 02/03/2018 Time Performed: 10:24:27 PTAGE: 72 years EKG: SINUS BRADYCARDIA BORDERLINE ECG Since the PREVIOUS TRACING , no significant change noted PREVIOUS TRACIN02/03/2018 05.39 DOCTOR: Jamie Nickerson Interpretating Date/Time 02/03/2018 15:02:00
[2018-02-03 15:03] LABS: ALKALINE PHOSPHATASE 48 U/L (45-117); HDL CHOLESTEROL 50.8 MG/DL (40.0-60.0); TOTAL BILIRUBIN ADULT 1.1 MG/DL (0.2-1.0); TOTAL PROTEIN 7.2 GM/DL (6.4-8.2); TROPONIN I 0.08 NG/ML (0.02-0.05)
[2018-02-03 15:20] LABS: ALT (GPT) 24 U/L (12-78); AST (GOT) 25 U/L (15-37); CHOLESTEROL 156 MG/DL (120-200); CHOLESTEROL/ HDL RATIO 3.07 RATIO; DIRECT BILIRUBIN ADULT 0.2 MG/DL (0.0-0.2); INDIRECT BILIRUBIN 0.9 MG/DL (0.0-0.8); LDL CHOLESTEROL 94 MG/DL (0-99); TRIGLYCERIDES 55 MG/DL (42-150)
[2018-02-03 17:51] LABS: TROPONIN I 0.37 NG/ML (0.02-0.05)
[2018-02-03] MEDS ORDERED: SODIUM CHLORIDE 0.9% FLUSH 10 ML FLUSH IV FLUSH SCH (21:00)
[2018-02-03] MEDS ORDERED: FLUoxetine HCL 10 MG CAP PO SCH (21:00)
[2018-02-03] MEDS: traZODone HCL 50 MG TAB PO SCH (21:44)
[2018-02-04] VITALS (13 sets, daily range): BP systolic 115–145; BP diastolic 56–89; PULSE 46–65; RESP 16–24; TEMP 97.7–99.4; O2SAT 94–100
[2018-02-04] MEDS: NITROGLYCERIN 2% OINT 1 GM PACKET TOPICAL SCH ×4 (01:06→17:29)
[2018-02-04] MEDS ORDERED: DIAZEPAM 5 MG TAB PO ONE (08:45)
[2018-02-04] MEDS: SODIUM CHLORIDE 0.9% FLUSH 10 ML FLUSH IV FLUSH SCH ×2 (08:52→20:07)
[2018-02-04] MEDS: ATORVASTATIN 20 MG TAB PO SCH (08:52)
[2018-02-04] MEDS: FLUoxetine HCL 10 MG CAP PO SCH (08:52)
[2018-02-04] MEDS: METOPROLOL TARTRATE 25 MG TAB PO SCH (08:53)
[2018-02-04] MEDS ORDERED: ASPIRIN 325 MG TAB PO SCH (09:00)
--- NOTE | 2018-02-04 09:03 | PD.CARD.PN ---
Subjective Subjective Remarks anxious overnight. no chest pain, sob or palpitations (Kasie Jamison) Objective Medications Current Medications Medications (Trade) Dose Ordered Sig/Ledyi Route Start Time Stop Time Status Last Admin (NS Flush) 2 ml UNSCH PRN IV FLUSH 02/03/18 07:15 02/03/18 11:58 (NS Flush) 2 ml BID IV FLUSH 02/03/18 09:00 02/03/18 11:58 (Nitroglycerin 2% Oint) 0.5 inch Q6HR TOPICAL 02/03/18 12:00 02/04/18 05:51 (Lopressor) 12.5 mg Q12HR PO 02/03/18 10:30 02/03/18 11:58 (Aspirin) 325 mg DAILY PO 02/04/18 09:00 02/04/18 08:52 (Lipitor) 20 mg DAILY PO 02/03/18 10:45 02/03/18 11:58 Heparin Sodium/ Dextrose 250 ml @ 10 mls/hr TITRATE PRN IV 02/03/18 12:30 02/03/18 15:20 (Desyrel) 50 mg HS PO 02/03/18 21:00 02/03/18 21:44 (PROzac) 10 mg DAILY PO 02/04/18 09:00 02/04/18 08:52 Vital Signs / I&O Vital Signs Date Time Temp Pulse Resp B/P (MAP) Pulse Ox O2 Delivery O2 Flow Rate FiO2 02/04/18 08:07 52 02/04/18 08:00 98.2 58 20 143/73 (96) 96 02/04/18 04:00 50 02/04/18 03:31 99.4 46 16 142/71 (94) 98 02/04/18 00:23 97.7 48 16 132/70 (90) 100 02/03/18 21:14 97.9 58 18 171/86 (114) 98 02/03/18 21:12 21 02/03/18 16:00 97.2 47 20 139/74 (95) 100 02/03/18 14:12 100 21 02/03/18 13:30 48 02/03/18 12:34 98.0 49 135/70 (91) 98 02/03/18 12:07 02/03/18 11:30 58 16 154/72 (99) 100 Nasal Cannula 2.00 02/03/18 10:30 56 18 153/73 (99) 100 Nasal Cannula 2.00 02/03/18 09:30 54 18 139/84 (102) 100 Nasal Cannula 2.00 I/O 02/03/18 02/03/18 02/03/18 02/04/18 02/04/18 02/04/18 07:00 15:00 23:00 07:00 15:00 23:00 Intake Total 240 ml Balance 240 ml Intake Oral 240 ml # Voids 6 Physical Exam GENERAL: SKIN: Warm and dry. HEAD: Atraumatic. Normocephalic. EYES: Pupils equal and round. ENT: No nasal bleeding or discharge. NECK: Trachea midline. No JVD. CARDIOVASCULAR: Regular rate and rhythm. no murmurs RESPIRATORY: No accessory muscle use. Clear to auscultation. Breath sounds equal bilaterally. GASTROINTESTINAL: Abdomen soft, non-tender, nondistended. MUSCULOSKELETAL: Extremities without clubbing, cyanosis, or edema. No obvious deformities. NEUROLOGICAL: Awake and alert. No obvious cranial nerve deficits. Normal speech. PSYCHIATRIC: Appropriate mood and affect; insight and judgment normal. Laboratory Laboratory Tests Test 02/03/18 11:45 02/03/18 14:05 02/03/18 16:49 02/03/18 21:07 Total Bilirubin 1.1 MG/DL Direct Bilirubin 0.2 MG/DL Indirect Bilirubin 0.9 MG/DL Aspartate Amino Transf (AST/SGOT) 25 U/L Alanine Aminotransferase (ALT/SGPT) 24 U/L Alkaline Phosphatase 48 U/L Total Creatine Kinase 125 U/L 113 U/L Creatine Kinase MB 1.3 NG/ML Troponin I 0.08 NG/ML 0.37 NG/ML Total Protein 7.2 GM/DL Albumin 4.0 GM/DL Triglycerides Level 55 MG/DL Cholesterol Level 156 MG/DL LDL Cholesterol 94 MG/DL HDL Cholesterol 50.8 MG/DL Cholesterol/HDL Ratio 3.07 RATIO White Blood Count 5.3 TH/MM3 Red Blood Count 4.36 MIL/MM3 Hemoglobin 12.8 GM/DL Hematocrit 37.9 % Mean Corpuscular Volume 86.9 FL Mean Corpuscular Hemoglobin 29.5 PG Mean Corpuscular Hemoglobin Concent 33.9 % Red Cell Distribution Width 13.7 % Platelet Count 123 TH/MM3 Mean Platelet Volume 7.2 FL Prothrombin Time 11.4 SEC Prothromb Time International Ratio 1.1 RATIO Activated Partial Thromboplast Time 24.3 SEC 35.8 SEC Test 02/04/18 04:41 Activated Partial Thromboplast Time 49.2 SEC Imaging Last 48 hours Impressions Chest X-Ray 02/03/18 0000 Signed Impressions: CONCLUSION: No acute cardiopulmonary disease. (Kasei Jamison) Assessment and Plan Problem List: (1) Elevated troponin I level ICD Codes: R74.8 - Abnormal levels of other serum enzymes (2) Chest pain ICD Codes: R07.9 - Chest pain, unspecified Status: Acute Assessment and Plan 72 yo M history of DVT (2009) and no prior cardiac disease presented yesterday with chest pain. NSTEMI- troponin levels trending upward no chest pain overnight plan for LHC today keep npo review of tele shows 6 beats of NSVT overnight cont metoprolol 12.5mg BID bradycardic currently HR 40-50bpm electrolytes ok (Kasie Jamison) Assessment and Plan 2 vessel CAD PCI ELIJAH LAD/diagonal branch bifurcation due to baseline dementia, patient didnt tolerate anesthesia very well will plan to stage PCI RCA as an outpatient continue asa plavix isosorbide statin DC BB due to bradycardia DC planning for tomorrow (Angel Luis Diaz MD) Kasie Jamison Feb 04, 2018 09:03 Angel Luis Diaz MD Feb 04, 2018 12:00
[2018-02-04] MEDS ORDERED: NITROGLYCERIN INJ 5 ML ONE (10:25)
[2018-02-04] MEDS ORDERED: MIDAZOLAM HCL 2 MG/2 ML VIAL ONE ×2 (10:25→11:10)
[2018-02-04] MEDS ORDERED: HEPARIN-NS/PF INJ 1,500 ML ONE (10:25)
[2018-02-04] MEDS ORDERED: HEPARIN SODIUM - IV 10,000 UNITS/10 ML VIAL ONE (10:25)
[2018-02-04] MEDS ORDERED: SODIUM CHLORID 0.9% 500 ML INJ 500 ML IV ONE (10:30)
[2018-02-04] MEDS ORDERED: MIDAZOLAM HCL 2 MG/2 ML VIAL IV PUSH ONE ×3 (10:46→11:20)
[2018-02-04] MEDS ORDERED: NITROGLYCERIN 1000 MCG/5 ML VIAL OTHER ONE (10:47)
[2018-02-04] MEDS ORDERED: BIVALIRUDIN 250 MG VIAL ONE (10:54)
[2018-02-04] MEDS ORDERED: ARGATROBAN 250 MG/2.5 ML IV ONE (11:00)
[2018-02-04] MEDS ORDERED: NITROGLYCERIN 1000 MCG/5 ML VIAL I-CORONARY ONE (11:10)
[2018-02-04] MEDS ORDERED: CLOPIDOGREL 300 MG TAB ONE (11:29)
[2018-02-04] MEDS ORDERED: LIDOCAINE 2% JELLY 30 ML TUBE TOP PRN (11:30)
[2018-02-04] MEDS ORDERED: BACITRACIN OINT 0.9 GM PKT TOP ONE (11:30)
[2018-02-04] MEDS ORDERED: CLOPIDOGREL 300 MG TAB PO ONE (11:30)
[2018-02-04] MEDS ORDERED: BIVALIRUDIN INJ 250 MG in SODIUM CHLORIDE 0.9% INJ 50 ML IV SCH (11:30)
[2018-02-04] MEDS ORDERED: oxyCODONE/ACETAMINOPHEN 5 MG/325 MG TAB PO PRN (11:30)
[2018-02-04] MEDS ORDERED: ONDANSETRON HCL 4 MG/2 ML VIAL IV PUSH ONE (11:38)
[2018-02-04] MEDS ORDERED: ONDANSETRON HCL 4 MG/2 ML VIAL ONE (11:41)
[2018-02-04] MEDS ORDERED: NITROGLYCERIN 400 MCG/SPRAY 4.9 GM BOTTLE SL ONE (11:43)
--- NOTE | 2018-02-04 11:45 | CATHPROC ---
[place] HIS Report Study Information Study Number Admission Scheduled Start Study Start [id number] Feb 03 2018 7:11AM 02/03/2018 Feb 04 2018 10:06AM [place] [facility] Cardiac Catheterization Admit Source Facility Department Emergency department [facility] Physician and Clinical Staff Initial Angel Luis Olivier Opera Singer Yoni RobertoRN Recorder Florence Dela Cruz,RT(R) Scrub Noah Peres RCIS(BS) Procedures Performed Procedure Location (Site) Vessel Name Coronary Angiograms LCA Left Coronary Coronary Angiograms RCA Right Coronary Drug Eluting Inflatio DIAG1 Prox Left Coronary Drug Eluting Inflatio LAD Prox Left Coronary Drug Eluting Inflatio Radial (right) Radial Art. L Heart Cath PTCA DIAG1 Prox Left Coronary PTCA LAD Prox Left Coronary Wire insertion Radial (right) Radial Art. Equipment Time Design Editor Description Size Mfg Part Number Used/Scraped COPILOT VALVE, BLEEDBACK [id number] 10:55 [employer] Used CONTROL *[id number] TRANSDUCER, TRUWAVE [id number] 10:43 [employer]OSS SPRING * Used W/STOCKCOCK *[id number] *[phone] *[id number] 10:43 PNMsoft PACK, CCL CUSTOM * Used *[id number] 10:43 PNMsoft SUPPORT, ARTERIAL ADULT 86915 *[id number] Used [id number] 10:43 EndorphMe PACER PEN, SKIN DUAL W/ RULER * Used *[id number] 11:11 MEDTRONIC BALLOON, 2.0 X 12MM EUPHORA 12MM Used *[id number] 10:59 MEDTRONIC BALLOON, 3.0 X 20MM EUPHORA 20MM Used *[id number] 10:43 MEDTRONIC JR 5.0 DXTERITY CATHETER fr 5 [id number] Used [id number] 11:16 MEDTRONIC STENT, 2.0 18MM ANA 2.0 X 18MM Used *[id number] 11:05 MEDTRONIC STENT, 2.5 18MM ANA 2.5 18MM Used *[id number] 10:59 MEDTRONIC STENT, 3.0 22MM ANA 3.0 22MM Used *[id number] [id number] 11:00 VoipSwitch 30 SKYLER INDEFLATOR Used *[id number] BAND, RADIAL COMPRESSION TR [id number] 11:32 VoipSwitch 24CM Used SHORT 24 *[id number] SHEATH, FR6 RADIAL PRELUDE 10:43 VoipSwitch FR 6 [id number] Used EASE 11CM [id number] 10:43 VoipSwitch WIRE, EXCHANGE 260CM 3MMJ 260CM Used *[id number] 10:43 NAMIC MANIFOLD, 4 PORT * Used *[id number] 10:43 NYCOMED OMNIPAQUE, 350 MG, 150ML 150ML [id number] Used [id number] 10:43 [facility] BLANKET,WARM AIR CCL * Used *[id number] WIRE, RUNTHROUGH NS FLOPPY -1011 10:58 Gecko[employer] MEDICAL 180CM Used .014 180CM *[id number] WIRE, RUNTHROUGH NS FLOPPY 25-1011 11:09 TERLatinCoin MEDICAL 180CM Used .014 180CM *[id number] Equipment Model, Serial, Lot Number and Expiration Data Description Model Number Serial Number Lot Number Expiration Date JR 5.0 DXTERITY CATHETER [id number] 04-08-2020 STENT, 2.0 18MM ANA [id number] 09-03-2019 STENT, 2.5 18MM ANA [id number] 10-10-2019 STENT, 3.0 22MM ANA [id number] 09-20-2019 History: Current Medications Medication Dosage/Unit Route Frequency Last Date/Time Taken LISINOPRIL LOPRESSOR ASA History: Allergies Allergy Reaction No Known Allergies History: Risk Factors Family History of Hypertension Dyslipidemia Previous ME Previous Heart Failure Premature CAD No No No No No Prior Valve Prior PCI Prior CABG Surgery No No No Cerebrovascular Peripheral Artery Chronic Lung On Dialysis Diabetes Disease Disease Disease No No No No No History: Stress Tests Stress or Imaging Studies Performed No Labs Hgb (g/dl) Hct (%) WBC (l/cumm) Platelets (thousands) 11.60-17.00 35.00-51.00 4.00-11.00 150.00-450.00 12.8 37.9 5.3 123 Glucose (mg/dl) BUN (mg/dl) Creatinine (mg/dl) BUN:Creatinine (1:x) 74.00-106.00 7.00-18.00 0.50-1.30 10.00-20.00 92 13 0.9 14.4 Na (meq/l) K (meq/l) 136.00-145.00 3.50-5.10 142 3.8 INR (PTT:PT) 0.90-1.10 1.1 Troponin I (ng/ml) CPK (u/l) 0.02-0.05 26.00-308.00 0.37 125 Medication Medication Total Dose (Bolus/Oral) Medication Total Dosage/Unit 1% XYLOCAINE 5 mL ANGIOMAX BOLUS 13 mL FENTANYL 150 mcg NTG (IC) 700 mcg OXYGEN 6 l/min VERSED 3 mg Medications (Bolus/Oral) Medication Time Given Dosage/Unit Administered By Reason 1% XYLOCAINE 02/04/2018 10:46:36 AM 5 mL Angel Luis Diaz 5 mL 1% XYLOCAINE given in lab by Angel Luis Diaz in Right Radial via Subcutaneous. VERSED 02/04/2018 10:46:51 AM 1 mg Felisa, Yoni 1 mg VERSED given in lab by Yoni Roberto RN in Left Forearm via Peripheral IV. Ordered by Edgar Diaz phen. FENTANYL 02/04/2018 10:47:02 AM 25 mcg Felisa, Yoni 25 mcg FENTANYL given in lab by Yoni Roberto RN in Left Forearm via Peripheral IV. Ordered by Angel Luis Diaz. NTG (IC) 02/04/2018 10:47:40 AM 100 mcg Angel Luis Diaz 100 mcg NTG (IC) given in lab by Angel Luis Diaz in Right Radial via Intra-arterial. ANGIOMAX BOLUS 02/04/2018 10:57:50 AM 13 mL Felisa, Yoni 13 mL ANGIOMAX BOLUS given in lab by Yoni Roberto RN in Left Forearm via Peripheral IV. Ordered by Angel Luis Bryant. VERSED 02/04/2018 11:04:44 AM 1 mg Felisa, Yoni 1 mg VERSED given in lab by Yoni Roberto RN in Left Forearm via Peripheral IV. Ordered by Edgar Diaz phen. FENTANYL 02/04/2018 11:05:05 AM 25 mcg Felisa, Yoni 25 mcg FENTANYL given in lab by Yoni Roberto RN in Left Forearm via Peripheral IV. Ordered by Angel Luis Diaz. NTG (IC) 02/04/2018 11:05:42 AM 200 mcg Angel Luis Diaz 200 mcg NTG (IC) given in lab by Angel Luis Diaz in Right Radial via Intra-coronary. FENTANYL 02/04/2018 11:06:30 AM 50 mcg Yoni Roberto 50 mcg FENTANYL given in lab by Yoni Roberto RN in Left Forearm via Peripheral IV. Ordered by Angel Luis Diaz. OXYGEN 02/04/2018 11:09:16 AM 6 l/min Yoni Roberto 6 l/min OXYGEN given in lab by Yoni Roberto RN via Nasal. Ordered by Angel Luis Diaz. NTG (IC) 02/04/2018 11:13:44 AM 200 mcg Angel Luis Diaz 200 mcg NTG (IC) given in lab by Angel Luis Diaz in Right Radial via Intra-coronary. VERSED 02/04/2018 11:20:05 AM 1 mg Yoni Roberto 1 mg VERSED given in lab by Yoni Roberto RN in Left Forearm via Peripheral IV. Ordered by Edgar Diaz. FENTANYL 02/04/2018 11:21:08 AM 50 mcg Yoni Roberto 50 mcg FENTANYL given in lab by Yoni Roberto RN in Left Forearm via Peripheral IV. Ordered by Angel Luis Diaz. NTG (IC) 02/04/2018 11:23:24 AM 200 mcg Angel Luis Daiz 200 mcg NTG (IC) given in lab by Angel Luis Diaz in Right Radial via Intra-coronary. Medication (Drip) Medication Time Given Dosage/Unit Concentration/Unit Diluent (ml) Solution ANGIOMAX DRIP 02/04/2018 11:00:42 AM 1.744 mg/kg/hr 250 mg 50 NaCl .9 1.744 mg/kg/hr ANGIOMAX DRIP given in lab by Yoni Roberto RN in Left Forearm via Peripheral IV. Pump /Drip Flow = 30 ml/hr using NaCl .9 with a concentration of 250 mg in 50 ml. Ordered by Angel Luis Diaz. IV Solutions 02/04/2018 10:22:38 AM 50 mL (IV) NaCl .9 IV Solutions given in lab by Yoni Roberto RN in Left Antecubital via Peripheral IV. Pump/Drip Flow u sing NaCl .9. Initial Case Assessment Cardiovascular HR NIBP Chest Pain 51 122/69 0 Edema Present Skin color Skin None Normal Warm Dry Chronological Log Time Study Chronological Log 10::21 Patient arrived via Bed. 10:22:22 Patient Name, D.O.B, / Armband Verified By R.N. 10::22 Consent signed by the physician and the patient and verified by the [facility] staff. 10::23 Pre-op and post- op instructions given; patient acknowledges understanding of instruction s. 10::23 Verbal Stimulation=2 Physical Stimulation=2 Airway=2 Respiration=2 TOTAL=8. (0=absent, 1= limited, 2=present) 10:22:25 Presedation assessment performed by [facility] RN. 10:22:32 Skin Breakdown- bruise right AC 10::34 Patient Warmer Placed on the Table. 10:22:35 Xander Prominences Protected 10:22:37 A # 18 IV was noted in the Forearm (left). Grade = 0 10::38 IV Solutions given in lab by Yoni Roberto, RN in Left Antecubital via Peripheral IV. Pump /Drip Flow using NaCl .9. 10:22:39 History and physical on the chart or being dictated. Assessment: Initial Case, HR=51 BPM, THJO=989/69 mmhg, Chest Pain=0, Edema=None, Color=Normal , Skin = 10:22:40 Warm, Dry 10:22:50 Patient has been NPO for More than 6Hrs. 10:32:47 Reference ECG taken 10:34:36 Right Radial and right groin prepped with 2% chlorhexidine, and draped after a 3 min. gifty ting time. Vitals capture started with the following parameters, Patient=Adult, Interval=5 min, Initial Fxojupmf=899 mmHg, 10:35:28 Deflation Rate=5 mmHg, Cuff placed on Left Arm 10:36:40 HR=50 bpm, SSKF=393/69 mmhg, SpO2=99.0 %, Resp=11 B/min 10:37:49 MD paged 10:37:55 MD responded 10:41:39 Pressure channel 1 zeroed. 10:41:45 HR=52 bpm, GTAE=026/66 mmhg, SpO2=97.0 %, Resp=17 B/min 10:42:40 MD arrived. 10:46:05 HR=53 bpm, PZFP=857/64 mmhg, SpO2=96.0 %, Resp=16 B/min Time Out. Correct patient, correct procedure, correct physician, labs, allergies, and equipment verified with cleaner laboratory equipment 10:46:28 team present. Fire risk assesment completed (see hard stop sheet for coding). Time Out Conc urred by MD and individual staff in procedure. 10:46:34 Case Start 10:46:36 5 mL 1% XYLOCAINE given in lab by Angel Luis Diaz in Right Radial via Subcutaneous. 10:46:51 1 mg VERSED given in lab by Yoni Roberto RN in Left Forearm via Peripheral IV. Ordered by Angel Luis Diaz. 10:47:02 25 mcg FENTANYL given in lab by Yoni Roberto RN in Left Forearm via Peripheral IV. Ordered by Angel Luis Diaz. 10:47:13 Access site was Right Radial Artery. A SHEATH, FR6 RADIAL PRELUDE EASE 11CM FR 6 was advanced into the Radial (right) using the Perc utaneous 10:47:29 technique. 10:47:40 100 mcg NTG (IC) given in lab by Angel Luis Diaz in Right Radial via Intra-arterial. A JR 5.0 DXTERITY CATHETER fr 5 was advanced over a wire. OMNIPAQUE, 350 MG, 150ML 150ML was us ed for 10:48:43 injections. Recorded Pressure: LV, Ao, HR=56, Condition=Condition 1 10:49:54 (Left Ventricle) LV 87/-1/1, (Aorta) Ao ?/?/? 10:50:41 The RCA was injected and visualized at various angles. OMNIPAQUE, 350 MG, 150ML 150ML used . After removing the current catheter a JL 3.5 INFINITI CATHETER FR 5 was advanced over a WIRE, E XCHANGE 260CM 10:50:56 3MMJ 260CM. 10:51:06 HR=57 bpm, SHXH=161/54 mmhg, SpO2=94.0 %, Resp=15 B/min Recorded Pressure: Ao, HR=54, Condition=Condition 1 10:52:23 (Aorta) Ao 88/49/67 10:52:30 The LCA was injected and visualized at various angles. OMNIPAQUE, 350 MG, 150ML 150ML used . 10:56:07 HR=56 bpm, JPDH=179/52 mmhg, SpO2=93.0 %, Resp=16 B/min After removing the current catheter a XBLAD 4.0 GUIDE CATHETER FR 6 was advanced over a WIRE, E XCHANGE 10:56:37 260CM 3MMJ 260CM. 10:56:53 A WIRE, RUNTHROUGH NS FLOPPY .014 180CM 180CM was inserted via Radial (right). 13 mL ANGIOMAX BOLUS given in lab by Yoni Roberto RN in Left Forearm via Peripheral IV. Ordere d by Joe, 10:57:50 Angel Luis. A STENT, 3.0 22MM ANA 3.0 22MM was advanced through a XBLAD 4.0 GUIDE CATHETER FR 6 over a WIR E, 10:58:22 RUNTHROUGH NS FLOPPY .014 180CM 180CM. 10:59:06 Stent not deployed. Stent removed and intact. A BALLOON, 3.0 X 20MM EUPHORA 20MM was inserted over WIRE, RUNTHROUGH NS FLOPPY .014 180CM 180C M via 10:59:43 the Radial (right). A BALLOON, 3.0 X 20MM EUPHORA 20MM over a WIRE, RUNTHROUGH NS FLOPPY .014 180CM 180CM in the LA D 10:59:56 Prox was inflated using a 30 SKYLER INDEFLATOR at 14 skyler for 10 sec. 1.744 mg/kg/hr ANGIOMAX DRIP given in lab by Yoni Roberto RN in Left Forearm via Peripheral IV . Pump/Drip Flow = 11:00:42 30 ml/hr using NaCl .9 with a concentration of 250 mg in 50 ml. Ordered by Angel Luis Diaz. 11:00:42 Balloon Removed. A STENT, 3.0 22MM ANA 3.0 22MM was advanced through a XBLAD 4.0 GUIDE CATHETER FR 6 over a WIR E, 11:00:54 RUNTHROUGH NS FLOPPY .014 180CM 180CM. 11:01:45 HR=57 bpm, GPSQ=160/84 mmhg, SpO2=95.0 %, Resp=13 B/min A STENT, 3.0 22MM ANA 3.0 22MM was deployed using a 30 SKYLER INDEFLATOR at 16 atmospheres for 10 seconds in 11:01:56 the Radial (right). 11:02:40 Delivery device removed A BALLOON, 3.0 X 20MM EUPHORA 20MM was inserted over WIRE, RUNTHROUGH NS FLOPPY .014 180CM 180C M via 11:03:27 the Radial (right). A BALLOON, 3.0 X 20MM EUPHORA 20MM over a WIRE, RUNTHROUGH NS FLOPPY .014 180CM 180CM in the LA D 11:03:34 Prox was inflated using a 30 SKYLER INDEFLATOR at 12 skyler for 10 sec. 11:04:44 1 mg VERSED given in lab by Yoni Roberto RN in Left Forearm via Peripheral IV. Ordered by Angel Luis Diaz. A STENT, 2.5 18MM ANA 2.5 18MM was advanced through a XBLAD 4.0 GUIDE CATHETER FR 6 over a WIR E, 11:04:47 RUNTHROUGH NS FLOPPY .014 180CM 180CM. A STENT, 2.5 18MM ANA 2.5 18MM was deployed using a 30 SKYLER INDEFLATOR at 14 atmospheres for 10 seconds in 11:05:00 the LAD Prox. 11:05:05 25 mcg FENTANYL given in lab by Yoni Roberto RN in Left Forearm via Peripheral IV. Ordered by Angel Luis Diaz. 11:05:42 200 mcg NTG (IC) given in lab by Angel Luis Diaz in Right Radial via Intra-coronary. 11:06:30 50 mcg FENTANYL given in lab by Yoni Roberto RN in Left Forearm via Peripheral IV. Ordered by Angel Luis Diaz. 11:06:49 Disposable Defibrillator Pads Placed On Patient. 11:06:52 HR=57 bpm, OLAX=516/83 mmhg, SpO2=91.0 %, Resp=16 B/min 11:07:30 Delivery device removed 11:09:16 6 l/min OXYGEN given in lab by Yoni Roberto RN via Nasal. Ordered by Angel Luis Diaz. 11:09:30 A WIRE, RUNTHROUGH NS FLOPPY .014 180CM 180CM was inserted via Radial (right). 11:11:12 HR=52 bpm, NMMU=844/91 mmhg, SpO2=92.0 %, Resp=17 B/min A BALLOON, 2.0 X 12MM EUPHORA 12MM was inserted over WIRE, RUNTHROUGH NS FLOPPY .014 180CM 180C M via 11:11:31 the Radial (right). A BALLOON, 2.0 X 12MM EUPHORA 12MM over a WIRE, RUNTHROUGH NS FLOPPY .014 180CM 180CM in the DI AG1 11:11:42 Prox was inflated using a 30 SKYLER INDEFLATOR at 8 skyler for 10 sec. A BALLOON, 2.0 X 12MM EUPHORA 12MM over a WIRE, RUNTHROUGH NS FLOPPY .014 180CM 180CM in the DI AG1 11:12:43 Prox was inflated using a 30 SKYLER INDEFLATOR at 8 skyler for 5 sec. 11:13:19 Balloon Removed. 11:13:44 200 mcg NTG (IC) given in lab by nAgel Luis Diaz in Right Radial via Intra-coronary. A STENT, 2.0 18MM ANA 2.0 X 18MM was advanced through a XBLAD 4.0 GUIDE CATHETER FR 6 over a W DEON, 11:16:10 RUNTHROUGH NS FLOPPY .014 180CM 180CM. 11:16:52 HR=50 bpm, EVCM=561/103 mmhg, SpO2=97.0 %, Resp=9 B/min A STENT, 2.0 18MM ANA 2.0 X 18MM was deployed using a 30 SKYLER INDEFLATOR at 8 atmospheres for 1 0 seconds in 11:19:32 the DIAG1 Prox. A STENT, 2.0 18MM ANA 2.0 X 18MM was deployed using a 30 SKYLER INDEFLATOR at 8 atmospheres for 1 0 seconds in 11:19:49 the DIAG1 Prox. 11:20:05 1 mg VERSED given in lab by Yoni Roberto RN in Left Forearm via Peripheral IV. Ordered by Angel Luis Diaz. 11:20:46 Delivery device removed 11:21:08 50 mcg FENTANYL given in lab by Yoni Roberto RN in Left Forearm via Peripheral IV. Ordered by Angel Luis Diaz. 11:21:17 HR=59 bpm, PQRL=833/103 mmhg, SpO2=96.0 %, Resp=9 B/min 11:23:24 200 mcg NTG (IC) given in lab by Angel Luis Diaz in Right Radial via Intra-coronary. 11:24:52 Both Wires removed 11:26:00 Catheter was removed 11:26:20 HR=66 bpm, DYRH=259/77 mmhg, SpO2=92.0 %, Resp=20 B/min 11:26:58 Case End 11:28:09 Cine recording checked. 11:28:29 Holding Area notified of successful intervention. 11:28:31 Bedside Report will be given. 11:28:32 Implantable Device card placed in patient's chart. 11:28:41 A Left Heart Cath was performed. Radial Compression Device Used. 14 mLs of air placed in BAND, RADIAL COMPRESSION TR SHORT 24 24 CM. Affected 11:31:09 hand 97 % O2 saturation. 11:31:23 HR=68 bpm, ILZU=876/75 mmhg, SpO2=97 %, Resp=19 B/min 11:41:47 Patient moved to stretcher End Study - Contrast Media Used In Study Contrast Total Opened (mL) Total Used (mL) Total Wasted (mL) Omnipaque 135 135 0 End Study - Maximum Contrast Load Max Contrast Load (mL) 477.8 End Study - Radiation Exposure Fluoro Time (minutes) 10.6 End Study - Patient Disposition Complications Transferred To Interventional Outcome No Telemetry Bed successful
[2018-02-04] MEDS ORDERED: NALOXONE HCL 0.4 MG/ML AMP ONE (11:46)
[2018-02-04] MEDS ORDERED: FLUMAZENIL 0.5 MG/5 ML VIAL IV ONE (11:47)
[2018-02-04] MEDS ORDERED: NALOXONE HCL 0.4 MG/ML AMP IV ONE (11:49)
--- NOTE | 2018-02-04 12:03 | MA ---
cc: Angel Luis Diaz MD DATE: 02/04/2018 INDICATION: Non-ST elevation myocardial infarction. PROCEDURES PERFORMED: 1. Fluoroscopy with interpretation. 2. Coronary angiography. 3. Percutaneous coronary intervention with drug-eluting stents to the mid left anterior descending coronary artery and first diagonal branch. METHOD: Risks, benefits and alternatives discussed with the patient. The patient understood and consented to the procedure. The patient was brought into the catheterization lab, placed on catheterization table. The right wrist was prepped and draped in a sterile fashion. The right wrist was anesthetized with 2% lidocaine. Right radial artery was cannulated and a 6-Haitian, 7 cm sheath was placed without difficulty. CORONARY ANGIOGRAPHY: 1. Left main coronary artery is angiographically normal. 2. Left anterior descending coronary proximally has mild luminal irregularities. In the mid segment, there is a 90% stenosis. There is a first diagonal branch, smaller caliber size with a 90% stenosis. Second diagonal branch has minor luminal irregularities. Distal left anterior descending coronary artery is widely patent. 3. Left circumflex gives rise to an obtuse marginal branch, which is widely patent. 4. Right coronary artery is a dominant vessel giving rise to a posterior descending branch. The right coronary in the proximal segment has a tubular 80% stenosis. PERCUTANEOUS INTERVENTION: The left coronary circulation was selective engaged with a 6-Haitian XBLAD 4.0 guide catheter. Angiomax was administered throughout the entire procedure to maintain appropriate anticoagulation. A 0.014 inch, 180 cm Terumo Runthrough wire was navigated down the distal left anterior descending coronary without difficulty. A 3.0 x 20 mm Euphora balloon was then deployed, followed by a 3.0 x 22 mm RX Resolute Franky stent. Repeat angiography showed SHAHAB 1 flow likely secondary to a distal edge dissection. A 2.5 x 18 mm RX Resolute Verdi stent was then advanced down to the mid left anterior descending coronary at the distal stent margin and deployed. Repeat angiography showed now jew of SHAHAB 3 flow. Attention was then directed towards the first diagonal branch to see if we could improve flow. A second Terumo Runthrough wire was navigated down to the first diagonal branch distally. A 2.0 x 12 mm balloon was deployed on 2 sequential inflations. Repeat angiography showed SHAHAB 1 flow. A 2.0 x 18 mm RX Resolute Verdi stent was then advanced down to the proximal portion of the diagonal branch and deployed. Repeat angiography showed no residual stenosis, but SHAHAB 2 distal flow likely secondary to plaque shifting distal embolization. Hopefully, they will be able to recanalize. No electrocardiographic changes. CONCLUSIONS: 1. Severe 2 vessel coronary artery disease involving the mid left anterior descending coronary artery and proximal right coronary artery. 2. Successful percutaneous intervention drug-eluting stents to the mid left anterior descending coronary artery and first diagonal branch. PLAN: We will allow the patient to make a full recovery. Likely discharge home hopefully in the next day or 2 and we can stage his right coronary artery for percutaneous intervention. Given his baseline dementia, the patient does not tolerate sedation very well, so we did a moderate approach to right coronary at this time. Angel Luis Diaz MD FAMILIA/DL , 11:36 AM , 12:02 PM
--- NOTE | 2018-02-04 13:22 | EKG ---
Date Performed: 02/03/2018 Time Performed: 13:33:11 PTAGE: 72 years EKG: SINUS BRADYCARDIA WITH SINUS ARRHYTHMIA BORDERLINE ECG PREVIOUS TRACING : 02/03/2018 10.24 Since previous tracing, no significant change noted DOCTOR: Erasto Simms Interpretating Date/Time 02/04/2018 13:20:17
[2018-02-04] MEDS: ISOSORBIDE MONONITRATE 60 MG CR TAB (IMDUR) PO SCH (14:01)
--- NOTE | 2018-02-04 15:15 | HHI.PR ---
Subjective Remarks Follow-up chest pain, anxiety. The patient had cardiac catheterization with stent placement today. He has had a lot of agitation. Denies chest pain or dyspnea at this time. Has been very anxious due to the pressure of the radial compression device. Objective Vitals Vital Signs Date Time Temp Pulse Resp B/P (MAP) Pulse Ox O2 Delivery O2 Flow Rate FiO2 02/04/18 14:00 61 02/04/18 12:30 98.0 65 18 145/89 (107) 96 02/04/18 12:00 58 02/04/18 08:07 52 02/04/18 08:00 98.2 58 20 143/73 (96) 96 02/04/18 04:00 50 02/04/18 03:31 99.4 46 16 142/71 (94) 98 02/04/18 00:23 97.7 48 16 132/70 (90) 100 02/03/18 21:14 97.9 58 18 171/86 (114) 98 02/03/18 21:12 21 02/03/18 16:00 97.2 47 20 139/74 (95) 100 I/O 02/03/18 02/03/18 02/03/18 02/04/18 02/04/18 02/04/18 07:00 15:00 23:00 07:00 15:00 23:00 Intake Total 240 ml 250 ml Balance 240 ml 250 ml Intake Oral 240 ml IV Total 250 ml # Voids 6 Result Diagram: 02/03/18 1405 02/03/18 0600 Imaging Last Impressions Chest X-Ray 02/03/18 0000 Signed Impressions: CONCLUSION: No acute cardiopulmonary disease. Objective Remarks General: No acute distress. Heart: Regular rate and rhythm. No murmur. Lungs: Clear to auscultation bilaterally. No wheezes, rales, or rhonchi. Breathing is nonlabored. Abdomen: Soft, nontender, nondistended. Extremities: No lower extremity edema. Ecchymosis around the right wrist. Radial compression device in place. Psych: Alert, answers questions appropriately. Neuro: Normal speech. No focal deficits noted. Procedures 02/04/18 cardiac catheterization with placement of drug-eluting stents to the mid LAD and first diagonal branch Urinary Catheter: No Vascular Central Line Catheter: No A/P Problem List: (1) Anxiety ICD Code: F41.9 - Anxiety disorder, unspecified (2) Chest pain ICD Code: R07.9 - Chest pain, unspecified Status: Acute (3) Elevated troponin I level ICD Code: R74.8 - Abnormal levels of other serum enzymes Assessment and Plan 1. Chest pain with troponin elevation: Appreciate cardiology recommendations. Status post cardiac catheterization with placement of drug-eluting stents in the LAD and first diagonal branch. Due to anxiety and agitation, patient will likely need repeat cardiac catheterization with further evaluation and possible stenting of the right coronary artery. 2. Anxiety/depression: Continue fluoxetine, trazodone. The patient's family states that he has had problems with Lorazepam in the past, but did very well this morning with Valium. 3. Coronary artery disease: Continue statin, aspirin, Plavix. 4. DVT prophylaxis: PAYAL Bruno. Discharge Planning Possible discharge home tomorrow pending cardiology clearance. Anthony Patton MD Feb 04, 2018 15:15
[2018-02-04] MEDS ORDERED: DIAZEPAM 2 MG TAB PO PRN (15:30)
[2018-02-04] MEDS: traZODone HCL 50 MG TAB PO SCH (20:29)
[2018-02-05] VITALS (8 sets, daily range): BP systolic 91–122; BP diastolic 51–64; PULSE 52–66; RESP 18–23; TEMP 97.7–98.2; O2SAT 95–96
[2018-02-05] MEDS: NITROGLYCERIN 2% OINT 1 GM PACKET TOPICAL SCH ×3 (00:12→12:00)
[2018-02-05 04:53] LABS: AUTOMATED NEUTROPHIL # 7.2 TH/MM3 (1.8-7.7); BASOPHIL % 0.4 % (0.0-2.0); EOSINOPHIL % 0.4 % (0.0-4.0); HEMATOCRIT 37.7 % (39.0-51.0); HEMOGLOBIN 13.1 GM/DL (13.0-17.0); LYMPH % 11.4 % (9.0-44.0); LYMPHOCYTE # 1.1 TH/MM3 (1.0-4.8); MEAN CELL VOLUME 85.8 FL (80.0-100.0); MEAN CORPUSCULAR HEMOGLOBIN 29.8 PG (27.0-34.0); MEAN CORPUSCULAR HGB CONC 34.7 % (32.0-36.0); MEAN PLATELET VOLUME 7.6 FL (7.0-11.0); MONO % 11.9 % (0.0-8.0); MONOCYTE # 1.1 TH/MM3 (0-0.9); NEUT % 75.9 % (16.0-70.0); PLATELET COUNT 125 TH/MM3 (150-450); RED BLOOD COUNT 4.39 MIL/MM3 (4.50-5.90); WHITE BLOOD COUNT 9.5 TH/MM3 (4.0-11.0)
[2018-02-05 05:32] LABS: BICARBONATE 25.1 MEQ/L (21.0-32.0); CALCIUM 8.1 MG/DL (8.5-10.1); CREATININE 0.9 MG/DL (0.60-1.30)
[2018-02-05 05:34] LABS: CHOLESTEROL/ HDL RATIO 2.47 RATIO; HDL CHOLESTEROL 46.4 MG/DL (40.0-60.0)
[2018-02-05] MEDS: ISOSORBIDE MONONITRATE 60 MG CR TAB (IMDUR) PO SCH (08:10)
[2018-02-05] MEDS: FLUoxetine HCL 10 MG CAP PO SCH (08:10)
[2018-02-05] MEDS: ATORVASTATIN 20 MG TAB PO SCH (08:11)
[2018-02-05] MEDS: SODIUM CHLORIDE 0.9% FLUSH 10 ML FLUSH IV FLUSH SCH (08:11)
[2018-02-05] MEDS ORDERED: ASPIRIN 81 MG CHEW TAB PO SCH (09:00)
[2018-02-05] MEDS ORDERED: CLOPIDOGREL 75 MG TAB PO SCH (09:00)
--- NOTE | 2018-02-05 09:39 | PD.CARD.PN ---
Subjective Subjective Remarks eating breakfast doing well no complaints Objective Medications Current Medications Medications (Trade) Dose Ordered Sig/Leydi Route Start Time Stop Time Status Last Admin (NS Flush) 2 ml UNSCH PRN IV FLUSH 02/03/18 07:15 02/03/18 11:58 (NS Flush) 2 ml BID IV FLUSH 02/03/18 09:00 02/05/18 08:11 (Nitroglycerin 2% Oint) 0.5 inch Q6HR TOPICAL 02/03/18 12:00 02/05/18 06:00 (Lipitor) 20 mg DAILY PO 02/03/18 10:45 02/05/18 08:11 (Desyrel) 50 mg HS PO 02/03/18 21:00 02/04/18 20:29 (PROzac) 10 mg DAILY PO 02/04/18 09:00 02/05/18 08:10 (Percocet 5-325 Mg) 1 tab Q4H PRN PO 02/04/18 11:30 02/04/18 13:46 (Plavix) 75 mg DAILY PO 02/05/18 09:00 02/05/18 08:10 (Xylocaine 2% Jelly) 1 applic UNSCH X1 PRN TOP 02/04/18 11:30 02/05/18 11:29 (Imdur) 60 mg DAILY@07 PO 02/04/18 11:45 02/05/18 08:10 (Aspirin Chew) 81 mg DAILY PO 02/05/18 09:00 02/05/18 08:10 (Valium) 2 mg Q12H PRN PO 02/04/18 15:30 02/04/18 19:49 Vital Signs / I&O Vital Signs Date Time Temp Pulse Resp B/P (MAP) Pulse Ox O2 Delivery O2 Flow Rate FiO2 02/05/18 08:17 95 21 02/05/18 08:00 97.7 56 19 122/60 (80) 96 02/05/18 08:00 61 02/05/18 07:00 96 Room Air 02/05/18 06:00 53 02/05/18 04:00 59 02/05/18 04:00 98.2 52 21 108/64 (79) 96 02/05/18 02:00 52 02/05/18 00:00 98.1 66 23 96/51 (66) 96 02/05/18 00:00 62 02/04/18 22:00 50 02/04/18 20:00 63 02/04/18 20:00 98.0 64 23 115/62 (79) 94 02/04/18 19:39 97 02/04/18 19:00 97 Room Air 02/04/18 18:00 51 02/04/18 16:00 98.9 55 24 123/56 (78) 96 02/04/18 16:00 55 02/04/18 14:00 61 02/04/18 12:30 98.0 65 18 145/89 (107) 96 02/04/18 12:30 96 Room Air 02/04/18 12:00 58 I/O 02/04/18 02/04/18 02/04/18 02/05/18 02/05/18 02/05/18 07:00 15:00 23:00 07:00 15:00 23:00 Intake Total 240 ml 250 ml 360 ml 240 ml Output Total 300 ml Balance 240 ml 250 ml 60 ml 240 ml Intake Oral 240 ml 360 ml 240 ml IV Total 250 ml Output Urine Total 300 ml # Voids 6 1 Physical Exam GENERAL: SKIN: Warm and dry. HEAD: Normocephalic. EYES: No scleral icterus. No injection or drainage. NECK: Supple, trachea midline. No JVD or lymphadenopathy. CARDIOVASCULAR: Regular rate and rhythm without murmurs, gallops, or rubs. RESPIRATORY: Breath sounds equal bilaterally. No accessory muscle use. GASTROINTESTINAL: Abdomen soft, non-tender, nondistended. MUSCULOSKELETAL: No cyanosis, or edema. BACK: Nontender without obvious deformity. No CVA tenderness. Laboratory Laboratory Tests Test 02/04/18 15:23 02/05/18 04:17 Activated Partial Thromboplast Time 27.3 SEC White Blood Count 9.5 TH/MM3 Red Blood Count 4.39 MIL/MM3 Hemoglobin 13.1 GM/DL Hematocrit 37.7 % Mean Corpuscular Volume 85.8 FL Mean Corpuscular Hemoglobin 29.8 PG Mean Corpuscular Hemoglobin Concent 34.7 % Red Cell Distribution Width 14.0 % Platelet Count 125 TH/MM3 Mean Platelet Volume 7.6 FL Neutrophils (%) (Auto) 75.9 % Lymphocytes (%) (Auto) 11.4 % Monocytes (%) (Auto) 11.9 % Eosinophils (%) (Auto) 0.4 % Basophils (%) (Auto) 0.4 % Neutrophils # (Auto) 7.2 TH/MM3 Lymphocytes # (Auto) 1.1 TH/MM3 Monocytes # (Auto) 1.1 TH/MM3 Eosinophils # (Auto) 0.0 TH/MM3 Basophils # (Auto) 0.0 TH/MM3 CBC Comment DIFF FINAL Differential Comment Blood Urea Nitrogen 11 MG/DL Creatinine 0.90 MG/DL Random Glucose 118 MG/DL Calcium Level 8.1 MG/DL Sodium Level 141 MEQ/L Potassium Level 3.6 MEQ/L Chloride Level 104 MEQ/L Carbon Dioxide Level 25.1 MEQ/L Anion Gap 12 MEQ/L Estimat Glomerular Filtration Rate 83 ML/MIN Total Creatine Kinase 681 U/L Creatine Kinase MB 58.3 NG/ML Creatine Kinase MB % 8.6 % Triglycerides Level 52 MG/DL Cholesterol Level 115 MG/DL LDL Cholesterol 58 MG/DL HDL Cholesterol 46.4 MG/DL Cholesterol/HDL Ratio 2.47 RATIO Imaging Last Impressions Chest X-Ray 02/03/18 0000 Signed Impressions: CONCLUSION: No acute cardiopulmonary disease. Assessment and Plan Problem List: (1) Elevated troponin I level ICD Codes: R74.8 - Abnormal levels of other serum enzymes (2) Chest pain ICD Codes: R07.9 - Chest pain, unspecified Status: Acute Assessment and Plan 2 vessel CAD PCI ELIJAH LAD/diagonal branch bifurcation due to baseline dementia, patient didnt tolerate anesthesia very well will plan to stage PCI RCA as an outpatient continue asa plavix isosorbide statin DC BB due to bradycardia DC home today Angel Luis Diaz MD Feb 05, 2018 09:39
--- NOTE | 2018-02-05 11:35 | HHI.PR ---
Subjective Remarks Pt seen and examined. at the bedside. AFVSS. No acute events. Feels ready to go home. Denies any acute complaints. No CP, SOB, abdominal pain, N/V, palpitations. has many questions regarding supplements which she was directed to hold off on additional supplements and to present them to his PCP. Objective Vital Signs Date Time Temp Pulse Resp B/P (MAP) Pulse Ox O2 Delivery O2 Flow Rate FiO2 02/05/18 10:00 56 02/05/18 08:17 95 21 02/05/18 08:00 97.7 56 19 122/60 (80) 96 02/05/18 08:00 61 02/05/18 07:00 96 Room Air 02/05/18 06:00 53 02/05/18 04:00 59 02/05/18 04:00 98.2 52 21 108/64 (79) 96 02/05/18 02:00 52 02/05/18 00:00 98.1 66 23 96/51 (66) 96 02/05/18 00:00 62 02/04/18 22:00 50 02/04/18 20:00 63 02/04/18 20:00 98.0 64 23 115/62 (79) 94 02/04/18 19:39 97 02/04/18 19:00 97 Room Air 02/04/18 18:00 51 02/04/18 16:00 98.9 55 24 123/56 (78) 96 02/04/18 16:00 55 02/04/18 14:00 61 02/04/18 12:30 98.0 65 18 145/89 (107) 96 02/04/18 12:30 96 Room Air 02/04/18 12:00 58 I/O 02/04/18 02/04/18 02/04/18 02/05/18 02/05/18 02/05/18 07:00 15:00 23:00 07:00 15:00 23:00 Intake Total 240 ml 250 ml 360 ml 240 ml Output Total 300 ml Balance 240 ml 250 ml 60 ml 240 ml Intake Oral 240 ml 360 ml 240 ml IV Total 250 ml Output Urine Total 300 ml # Voids 6 1 Result Diagram: 02/05/18 0417 02/05/18 0417 Imaging Chest X-Ray 02/03/18 0000 Signed Impressions: CONCLUSION: No acute cardiopulmonary disease. Other Results Chest X-Ray 02/03/18 0000 Signed Impressions: CONCLUSION: No acute cardiopulmonary disease. Objective Remarks GENERAL: WN, WD male resting in bed in NAD. SKIN: Warm and dry. HEENT: AT/NC. Pupils equal and round. MMM. NECK: Supple no tender LAD or JVD. HEART: RRR no m/r/g. LUNGS: CTAB without wheezes or crackles. ABDOMEN: +BS, soft, NT, ND. EXTREMITIES: No LE edema. NEURO: Awake and alert. A/P Assessment and Plan 72 year old male with no significant past medical history admitted on 02/03 initially to the chest pain center for ACS rule-out. His second tropnin increased and the decision was made to admit him to the medical service with cardiology consult. He underwent cardiac catheterization on 02/04 with PCI. 1. Coronary artery disease - Initially admitted to chest pain center for ACS rule-out - Initial troponin <0.02 then bumped to 0.08 and highest was 0.37 - EKG with no ST changes - Cardiology consulted Cath done on 02/04 showing severe two-vessel coronary artery disease involving the mid-LAD and proximal RCA s/p PCI with drug-eluting stents to the mid LAD and first diagonal branch Cleared for discharge today with plans for staged PCI of the RCA as an outpatient - Continue ASA, Plavix, isosorbide, and statin - No beta amanuel secondary to bradycardia 2. Anxiety/depression - Continue fluoxetine and trazodone Discharge Planning D/C home today María Virk MD Feb 05, 2018 11:35
[2018-02-05] MEDS ORDERED: ASPI81 PO (11:38)
[2018-02-05] MEDS ORDERED: PLAV75TA29 PO (11:38)
[2018-02-05] MEDS ORDERED: ATOR20TA15 PO (11:38)
[2018-02-05] MEDS ORDERED: ISOS60TA PO (11:38)
--- NOTE | 2018-02-05 12:20 | HHI.DCPOC ---
Discharge Care Plan Diagnosis: (1) Coronary artery disease Goals to Promote Your Health * To prevent worsening of your condition and complications * To maintain your health at the optimal level Directions to Meet Your Goals Take your medications as prescribed Follow your dietary instruction Follow activity as directed Keep your appointments as scheduled Take your immunizations and boosters as scheduled If your symptoms worsen call your PCP, if no PCP go to Urgent Care Center or Emergency Room Smoking is Dangerous to Your Health. Avoid second hand smoke Call the 24-hour hour crisis hotline for domestic abuse at María Virk MD Feb 05, 2018 12:20
--- NOTE | 2018-02-05 12:26 | HHI.DS ---
Discharge Summary Admission Date February 03, 2018 at 07:11 Discharge Date: Feb 05, 2018 Admitting Diagnosis Chest pain (1) Anxiety ICD Code: F41.9 - Anxiety disorder, unspecified (2) Chest pain ICD Code: R07.9 - Chest pain, unspecified Status: Acute (3) Elevated troponin I level ICD Code: R74.8 - Abnormal levels of other serum enzymes Procedures 02/04/18 cardiac catheterization with placement of drug-eluting stents to the mid LAD and first diagonal branch Brief History - From Admission The patient is a 72-year-old male who presented to the emergency department with complaint of substernal chest pain that started around midnight. The pain was described as sharp, tight. Denies dyspnea, nausea, vomiting, diaphoresis. The patient informed his about the discomfort and they tried multiple remedies for heartburn, none of which provided any relief. Chest pain resolved when he received nitroglycerin from [facility]. He was initially admitted to the chest pain center. Troponin increased and decision was made to admit to the medical service with cardiology consult. No chest pain currently. Patient denies any history of heart problems. CBC/BMP: 02/05/18 0417 02/05/18 0417 Significant Findings Laboratory Tests Test 02/03/18 06:00 02/03/18 08:15 02/03/18 11:45 02/03/18 14:05 Chloride Level 108 MEQ/L (98-107) Estimat Glomerular Filtration Rate 78 ML/MIN (>89) Troponin I LESS THAN 0.02 NG/ML 0.08 NG/ML (0.02-0.05) 0.08 NG/ML (0.02-0.05) Platelet Count 130 TH/MM3 (150-450) 123 TH/MM3 (150-450) Monocytes (%) (Auto) 9.8 % (0.0-8.0) Activated Partial Thromboplast Time 19.8 SEC (24.3-30.1) Total Bilirubin 1.1 MG/DL (0.2-1.0) Indirect Bilirubin 0.9 MG/DL (0.0-0.8) Red Blood Count 4.36 MIL/MM3 (4.50-5.90) Hemoglobin 12.8 GM/DL (13.0-17.0) Hematocrit 37.9 % (39.0-51.0) Test 02/03/18 16:49 02/03/18 21:07 02/04/18 04:41 02/04/18 15:23 Troponin I 0.37 NG/ML (0.02-0.05) Activated Partial Thromboplast Time 35.8 SEC (24.3-30.1) 49.2 SEC (24.3-30.1) Test 02/05/18 04:17 Red Blood Count 4.39 MIL/MM3 (4.50-5.90) Hematocrit 37.7 % (39.0-51.0) Platelet Count 125 TH/MM3 (150-450) Neutrophils (%) (Auto) 75.9 % (16.0-70.0) Monocytes (%) (Auto) 11.9 % (0.0-8.0) Monocytes # (Auto) 1.1 TH/MM3 (0-0.9) Random Glucose 118 MG/DL (74-106) Calcium Level 8.1 MG/DL (8.5-10.1) Estimat Glomerular Filtration Rate 83 ML/MIN (>89) Total Creatine Kinase 681 U/L (39-308) Creatine Kinase MB 58.3 NG/ML (0.5-3.6) Creatine Kinase MB % 8.6 % (0.0-4.0) Cholesterol Level 115 MG/DL (120-200) Imaging Chest X-Ray 02/03/18 0000 Signed Impressions: CONCLUSION: No acute cardiopulmonary disease. PE at Discharge General: No acute distress. Heart: Regular rate and rhythm. No murmur. Lungs: Clear to auscultation bilaterally. No wheezes, rales, or rhonchi. Breathing is nonlabored. Abdomen: Soft, nontender, nondistended. Extremities: No lower extremity edema. Ecchymosis around the right wrist. Radial compression device in place. Psych: Alert, answers questions appropriately. Neuro: Normal speech. No focal deficits noted. Hospital Course 72 year old male with no significant past medical history admitted on 02/03 initially to the chest pain center for ACS rule-out. His second tropnin increased and the decision was made to admit him to the medical service with cardiology consult. He underwent cardiac catheterization on 02/04 showing severe two-vessel coronary artery disease involving the mid-LAD and proximal RCA. PCI was done with drug-eluting stents to the mid LAD and first diagonal branch. He became agitated with the anesthesia and it was decided to hold off on RCA intervention which will be planned as an outpatient. He was cleared by cardiology and discharged in stable condition on 02/05. Pt Condition on Discharge: Stable Discharge Disposition: Discharge Home Discharge Time: <= 30 minutes Discharge Instructions DIET: Follow Instructions for: Heart Healthy Diet Activities you can perform: See Additionl Instruction Other Activity Instructions: No heavy lifting or strenuous exercise until cleared by cardiology Follow up Referrals: Cardiology - 1 Week with Angel Luis Diaz MD PCP Follow-up - 1 Week New Medications: Aspirin (Tgt Aspirin) 81 Mg Chw 81 MG PO DAILY for Blood Clot Prevention, #30 EA 1 Refill Atorvastatin (Atorvastatin) 20 Mg Tab 20 MG PO DAILY for Cholesterol Management, #30 TAB 1 Refill Clopidogrel (Plavix) 75 Mg Tab 75 MG PO DAILY for Blood Clot Prevention, #30 TAB 1 Refill Isosorbide Mononitrate ER (Isosorbide Mononitrate ER) 60 Mg Tab 60 MG PO DAILY@07 for Chest Pain, #30 TAB 1 Refill Continued Medications: Fluoxetine (Prozac) 10 Mg Cap 10 MG PO HS, #30 CAP 0 Refills Trazodone (Trazodone) 50 Mg Tab 50 MG PO HS for Control Depression, #30 TAB 0 Refills María Virk MD Feb 05, 2018 12:26
--- NOTE | 2018-02-05 14:32 | EKG ---
Date Performed: 02/05/2018 Time Performed: 06:15:00 PTAGE: 72 years EKG: Sinus bradycardia Extensive T wave changes are nonspecific Borderline ECG PREVIOUS TRACING : 02/03/2018 13.33 Since previous tracing, T-wave changes slightly more promin ent anterolaterally. DOCTOR: Erasto Simms Interpretating Date/Time 02/05/2018 14:31:09
== END 2018-02-05 13:10 | disposition home or self-care (01) ==
LOC: NEPC 05:28 → NEDA 07:11 → NEPHCDU 12:22 → HCIS 02-04 11:05 → N03B 02-04 12:23
PROVIDERS: ADMIT Family Medicine; ATTEND Family Medicine
DX: R07.89 Other chest pain (principal); I25.10 Atherosclerotic heart disease of native coronary artery without angina pectoris; I47.2 Ventricular tachycardia; R00.1 Bradycardia, unspecified; R74.8 Abnormal levels of other serum enzymes; D16.02 Benign neoplasm of scapula and long bones of left upper limb; F03.90 Unspecified dementia, unspecified severity, without behavioral disturbance, psychotic disturbance, mood disturbance, and anxiety; F41.9 Anxiety disorder, unspecified; F32.9 Major depressive disorder, single episode, unspecified; Z79.899 Other long term (current) drug therapy; Z95.5 Presence of coronary angioplasty implant and graft; Z86.718 Personal history of other venous thrombosis and embolism
CPT/HCPCS: 71045; 80048; 80061; 80076; 82550; 82552; 83735; 84484; 85025; 85027; 85610; 85730; 92928; 93005; 93458; 96365; 96366; 97163; 99152; 99153; 99285; C1725; C1769; C1874; C1887; C1893; G0378; G8987; G8988; J0583; J1644; J2250; J2310; J2405; J3010; Q9967

== ENCOUNTER 2018-02-09 09:20 | Observation (INO) | payer MEDICARE, BC ==
[~2018-02-09] VITALS: Ht 182.9 cm; Wt 83.5 kg
[2018-02-09] VITALS (10 sets, daily range): BP systolic 117–137; BP diastolic 61–73; PULSE 48–58; RESP 14–20; TEMP 96.4–97.8; O2SAT 98–100
[~2018-02-09 09:20] MED LIST changes: +ASPI81 PO; +ATOR20TA15 PO; +ISOS60TA PO; +PLAV75TA29 PO; +TRAZ50TA12 PO
[2018-02-09] MEDS ORDERED: SODIUM CHLORIDE 0.9% FLUSH 10 ML FLUSH IVF PRN (09:45)
--- NOTE | 2018-02-09 09:52 | PD ---
HPI Chief Complaint: Chest Pain Time Seen by Provider: 09:40 Travel History International Travel<30 days: No Contact w/Intl Traveler<30days: No Traveled to known affect area: No History of Present Illness HPI 72-year-old male patient with history of recent catheterization with 4 stents, presents to the ER today because his states that he complained of right anterior chest and shoulder pain which was a 6 out of 10, he states is now gone. He states that it did hurt more with movement. He denies any shortness of breath or other symptoms. Modifying Factors: None Associated Signs & Symptoms: Right anterior chest and shoulder pain Risk Factors: Cardiac history PFSH Past Medical History Anxiety: Yes Depression: Yes Heart Rhythm Problems: No Cancer: No Cardiac Catheterization: Yes (w/ stents) Cardiovascular Problems: No High Cholesterol: No Chest Pain: No Congestive Heart Failure: No Dementia: Yes Diabetes: No Diminished Hearing: No Deep Vein Thrombosis: Yes Endocrine: No Genitourinary: No Immune Disorder: No Inguinal Hernia: Yes Musculoskeletal: Yes Neurologic: Yes (dementia) Psychiatric: Yes (ocd) Reproductive: No Respiratory: No Immunizations Current: No Thyroid Disease: No Past Surgical History Other Surgery: Yes (herina surgery) Social History Alcohol Use: Yes (OCCASIONALLY) Tobacco Use: No Substance Use: No Allergies-Medications (Allergen,Severity, Reaction): Coded Allergies: hydromorphone (Verified Allergy, Severe, 02/09/18) lorazepam (Verified Allergy, Severe, 02/09/18) Reported Meds & Prescriptions Reported Meds & Active Scripts Active Tgt Aspirin (Aspirin) 81 Mg Chw 81 Mg PO DAILY Isosorbide Mononitrate ER (Isosorbide Mononitrate) 60 Mg Tab 60 Mg PO DAILY@07 Atorvastatin (Atorvastatin Calcium) 20 Mg Tab 20 Mg PO DAILY Plavix (Clopidogrel Bisulfate) 75 Mg Tab 75 Mg PO DAILY Reported Trazodone (Trazodone HCl) 50 Mg Tab 50 Mg PO HS Prozac (Fluoxetine HCl) 10 Mg Cap 10 Mg PO HS Review of Systems Except as stated in HPI: all other systems reviewed are Neg Physical Exam Narrative GENERAL: Well-developed elderly white male patient currently in moderate distress. Awake and oriented 3. SKIN: Focused skin assessment warm/dry. HEAD: Atraumatic. Normocephalic. EYES: Pupils equal and round. No scleral icterus. No injection or drainage. ENT: No nasal bleeding or discharge. Mucous membranes pink and moist. NECK: Trachea midline. No JVD. CARDIOVASCULAR: Regular rate and rhythm. No murmur appreciated. Pulses are present and equal bilaterally. CHEST: Mildly tender palpation of the right anterior shoulder area and axillary area without deformity or crepitance. No retractions or use of accessory muscles. RESPIRATORY: No accessory muscle use. Clear to auscultation. Breath sounds equal bilaterally. GASTROINTESTINAL: Abdomen soft, non-tender, nondistended. Hepatic and splenic margins not palpable. MUSCULOSKELETAL: No obvious deformities. No clubbing. No cyanosis. No edema. NEUROLOGICAL: Awake and alert. No obvious cranial nerve deficits. Motor grossly within normal limits. Normal speech. PSYCHIATRIC: Appropriate mood and affect; insight and judgment normal. Data Data Last Documented VS Vital Signs Date Time Temp Pulse Resp B/P (MAP) Pulse Ox O2 Delivery O2 Flow Rate FiO2 02/09/18 09:52 14 98 Room Air 02/09/18 09:36 57 02/09/18 09:24 97.1 Orders Orders Electrocardiogram (02/09/18:41) Basic Metabolic Panel (Bmp) (02/09/18 09:41) Ckmb (Isoenzyme) Profile (02/09/18 09:41) Complete Blood Count With Diff (02/09/18:41) Magnesium (Mg) (02/09/18:41) Prothrombin Time / Inr (Pt) (02/09/18 09:41) Act Partial Throm Time (Ptt) (02/09/18 09:41) Troponin I (02/09/18:41) Ecg Monitoring (02/09/18:41) Bilateral Bp Monitoring (02/09/18:41) Iv Access Insert/Monitor (02/09/18:41) Oximetry (02/09/18:41) Oxygen Administration (02/09/18:41) Sodium Chloride 0.9% Flush (Ns Flush) (02/09/18 09:45) Chest, Pa & Lat (02/09/18 09:41) Shoulder, Complete (>2vws) (02/09/18 09:41) Fluoxetine (Prozac) (02/09/18 10:45) CKMB (02/09/18 09:44) CKMB% (02/09/18 09:44) Aspirin (Aspirin) (02/09/18 11:15) Labs Laboratory Tests Test 02/09/18 09:44 White Blood Count 4.9 TH/MM3 Red Blood Count 4.15 MIL/MM3 Hemoglobin 12.3 GM/DL Hematocrit 36.2 % Mean Corpuscular Volume 87.3 FL Mean Corpuscular Hemoglobin 29.7 PG Mean Corpuscular Hemoglobin Concent 34.0 % Red Cell Distribution Width 13.8 % Platelet Count 133 TH/MM3 Mean Platelet Volume 7.9 FL Neutrophils (%) (Auto) 65.1 % Lymphocytes (%) (Auto) 21.5 % Monocytes (%) (Auto) 9.9 % Eosinophils (%) (Auto) 2.7 % Basophils (%) (Auto) 0.8 % Neutrophils # (Auto) 3.2 TH/MM3 Lymphocytes # (Auto) 1.1 TH/MM3 Monocytes # (Auto) 0.5 TH/MM3 Eosinophils # (Auto) 0.1 TH/MM3 Basophils # (Auto) 0.0 TH/MM3 CBC Comment DIFF FINAL Differential Comment Prothrombin Time 10.7 SEC Prothromb Time International Ratio 1.1 RATIO Activated Partial Thromboplast Time 23.6 SEC Blood Urea Nitrogen 12 MG/DL Creatinine 0.95 MG/DL Random Glucose 103 MG/DL Calcium Level 8.3 MG/DL Magnesium Level 2.1 MG/DL Sodium Level 141 MEQ/L Potassium Level 3.9 MEQ/L Chloride Level 107 MEQ/L Carbon Dioxide Level 27.6 MEQ/L Anion Gap 6 MEQ/L Estimat Glomerular Filtration Rate 78 ML/MIN Total Creatine Kinase 136 U/L Creatine Kinase MB 1.9 NG/ML Troponin I 1.34 NG/ML MDM Medical Decision Making Medical Screen Exam Complete: Yes Emergency Medical Condition: Yes Medical Record Reviewed: Yes Interpretation(s) EKG shows sinus bradycardia rate of [address] elevations or depressions. Laboratory Tests Test 02/09/18 09:44 Red Blood Count 4.15 MIL/MM3 (4.50-5.90) Hemoglobin 12.3 GM/DL (13.0-17.0) Hematocrit 36.2 % (39.0-51.0) Platelet Count 133 TH/MM3 (150-450) Monocytes (%) (Auto) 9.9 % (0.0-8.0) Activated Partial Thromboplast Time 23.6 SEC (24.3-30.1) Calcium Level 8.3 MG/DL (8.5-10.1) Estimat Glomerular Filtration Rate 78 ML/MIN (>89) Troponin I 1.34 NG/ML (0.02-0.05) Last 24 hours Impressions Shoulder X-Ray 02/09/18 09 Signed Impressions: CONCLUSION: No acute abnormality. Chest X-Ray 02/09/18940 Signed Impressions: CONCLUSION: Right middle lobe consolidation. Differential Diagnosis Right shoulder pain, atypical chest pain: Muscular skeletal versus ACS Narrative Course EKG did not show acute ST changes. Troponins are fairly elevated. Case was discussed with Dr. Diaz who states that he thinks the troponin may be secondary to recent DC rather than an acute cardiac issue. Patient's chest pain is waxing and waning and as a matter of fact he is not even concerned about it he just states that he is fairly anxious now. He wanted to get his morning Prozac and that was given in the ER. He was also given aspirin considering the situation. Dr. Diaz did not want the patient started on heparin at this time. He wants to troponin trended fevers. Case is discussed with family practice resident service for admission as an observation. Diagnosis Primary Impression: Atypical chest pain Additional Impression: Elevated troponin I level Admitting Information Admitting Physician Requests: Admit Maria Esther Pfeiffer MD Feb 09, 2018 09:52
[2018-02-09 10:15] LABS: AUTOMATED NEUTROPHIL # 3.2 TH/MM3 (1.8-7.7); BASOPHIL % 0.8 % (0.0-2.0); EOSINOPHIL # 0.1 TH/MM3 (0-0.4); EOSINOPHIL % 2.7 % (0.0-4.0); HEMATOCRIT 36.2 % (39.0-51.0); HEMOGLOBIN 12.3 GM/DL (13.0-17.0); LYMPH % 21.5 % (9.0-44.0); LYMPHOCYTE # 1.1 TH/MM3 (1.0-4.8); MEAN CELL VOLUME 87.3 FL (80.0-100.0); MEAN CORPUSCULAR HEMOGLOBIN 29.7 PG (27.0-34.0); MEAN PLATELET VOLUME 7.9 FL (7.0-11.0); MONO % 9.9 % (0.0-8.0); MONOCYTE # 0.5 TH/MM3 (0-0.9); NEUT % 65.1 % (16.0-70.0); PLATELET COUNT 133 TH/MM3 (150-450); RED BLOOD COUNT 4.15 MIL/MM3 (4.50-5.90); RED CELL DISTRIBUTION WIDTH 13.8 % (11.6-17.2); WHITE BLOOD COUNT 4.9 TH/MM3 (4.0-11.0)
[2018-02-09 10:25] LABS: INTERNATIONAL NORMALIZED RATIO 1.1 RATIO; PROTHROMBIN TIME - PATIENT 10.7 SEC (9.8-11.6)
[2018-02-09 10:40] LABS: BICARBONATE 27.6 MEQ/L (21.0-32.0); BLOOD UREA NITROGEN 12 MG/DL (7-18); CALCIUM 8.3 MG/DL (8.5-10.1); CHLORIDE 107 MEQ/L (98-107); CREATININE 0.95 MG/DL (0.60-1.30); GLOMERULAR FILTRATION RATE 78 ML/MIN (>89); GLUCOSE,RANDOM 103 MG/DL (74-106); MAGNESIUM 2.1 MG/DL (1.5-2.5); SODIUM (NA) 141 MEQ/L (136-145)
[2018-02-09] MEDS ORDERED: FLUoxetine HCL 10 MG CAP PO ONE (10:45)
[2018-02-09 10:48] LABS: TROPONIN I 1.34 NG/ML (0.02-0.05)
--- NOTE | 2018-02-09 10:49 | RADRPT ---
EXAM DATE: 02/09/2018 10:33 AM EDT AGE/SEX: 72 years / Male INDICATIONS: Chest pain. CLINICAL DATA: This is the patient's initial encounter. Patient reports that signs and symptoms have been present for 1 day and indicates a pain score of 4/10. MEDICAL/SURGICAL HISTORY: None. . Stent placement. COMPARISON: [facility] – [place], CHEST SINGLE AP, 02/03/2018. . FINDINGS: PA and lateral views of the chest demonstrate a focal consolidation involving the medial segment of t he right middle lobe. No effusions. Left lung is clear. Heart is normal in size. Bony structures are unremarkable. CONCLUSION: Right middle lobe consolidation. Electronically signed by: Abiel Mares MD 02/09/2018 10:47 AM EDT
--- NOTE | 2018-02-09 10:50 | RADRPT ---
EXAM DATE: 02/09/2018 10:35 AM EDT AGE/SEX: 72 years / Male INDICATIONS: Right shoulder pain from unknown injury. CLINICAL DATA: This is the patient's initial encounter. Patient reports that signs and symptoms have been present for 1 day and indicates a pain score of 8/10. MEDICAL/SURGICAL HISTORY: None. . Stent placement. COMPARISON: No prior [facility] exams available for comparison. FINDINGS: Bony structures are intact and in normal alignment. Joints are intact without dislocation or signifi cant arthropathy. Osseous density is normal. Soft tissues are unremarkable. No radiopaque foreign bodies seen. CONCLUSION: No acute abnormality. Electronically signed by: Abiel Mares MD 02/09/2018 10:48 AM EDT
[2018-02-09] MEDS ORDERED: ASPIRIN 325 MG TAB PO ONE (11:15)
--- NOTE | 2018-02-09 11:47 | HHI.HP ---
[facility] Service Family Medicine Primary Care Physician Cynthia Gil [place] Admission Diagnosis Atypical chest pain/elevated troponin Diagnoses: International Travel<30 Days: No Contact w/Intl Traveler<30days: No Known Affected Area: No History of Present Illness 72 y/o w/hx of NSTEMI presenting w/right shoulder pain. Patient does not answer all questions, seems confused at some points. says this confusion is baseline. Woke up at 9 am this morning with pain in right shoulder. Describes pain as sharp pain lasting a couple minutes. Cannot rate pain. Is continuing to have it intermittently. was concerned due to pain in the shoulder and brought him to the ER. No shortness of breath. Worse w/moving. Seems to be better w/ position. No numbness, tingling, weakness, no pleuritic chest pain. Feels tired. explains that he is initially tired in the morning but becomes more active as the day goes on. Sleeps on his right side, but no recent injury or fall as far as knows. Has been taking Trazodone for anxiety and to help him sleep at night. Takes Prozac for anxiety as well. Is continuing to have anxiety attacks even while on medications. Has been on Prozac for years but has been taking less of the dose that he has been prescribed. Did not receive Prozac this morning because his gives him his medications due to his pseudodementia. Presented w/chest pain on 02/03/18 and admitted for NSTEMI w/ troponins at 0.08. Underwent hep drip. Cardiac cath on 02/04 showed severe two-vessel coronary artery disease involving the mid-LAD and proximal RCA.PCI was done with drug- eluting stents to the mid LAD and first diagonal branch. He became agitated with the anesthesia and it was decided to hold off on RCA intervention which would be planned as an outpatient. He was cleared by cardiology and discharged in stable condition on 02/05 with ASA, atorvastatin, plavix, and isosorbide mononitrate ER. (Martina Melgoza MD R1) Review of Systems Constitutional: DENIES: Fever, Weight loss Endocrine: DENIES: Polyuria Eyes: DENIES: Vision loss Ears, nose, mouth, throat: DENIES: Hearing loss, Throat pain Respiratory: DENIES: Cough, Shortness of breath Cardiovascular: DENIES: Palpitations, Dyspnea on Exertion Gastrointestinal: DENIES: Nausea, Vomiting Genitourinary: DENIES: Urinary frequency, Urgency Integumentary: DENIES: Abnormal pigmentation, Rash Neurologic: DENIES: Localized weakness, Paresthesias Psychiatric: DENIES: Confusion (Martina Melgoza MD R1) Past Family Social History Past Medical History DVT - 2013, treated w/anticoagulation Anxiety Depression Pseudodementia - associated w/mild confusion 02/04 PCI was done with drug-eluting stents(3) to the mid LAD and first diagonal branch Past Surgical History Inguinal hernia repair 2016 Reported Medications Trazodone Prozac (Martina Melgoza MD R1) Allergies: Coded Allergies: hydromorphone (Verified Allergy, Severe, 02/09/18) lorazepam (Verified Allergy, Severe, 02/09/18) Active Ordered Medications Reported Meds & Active Scripts Active Tgt Aspirin (Aspirin) 81 Mg Chw 81 Mg PO DAILY Isosorbide Mononitrate ER (Isosorbide Mononitrate) 60 Mg Tab 60 Mg PO DAILY@07 Atorvastatin (Atorvastatin Calcium) 20 Mg Tab 20 Mg PO DAILY Plavix (Clopidogrel Bisulfate) 75 Mg Tab 75 Mg PO DAILY Reported Trazodone (Trazodone HCl) 50 Mg Tab 50 Mg PO HS Prozac (Fluoxetine HCl) 10 Mg Cap 10 Mg PO HS Family History Dad: Questionable family history of heart disease, alcoholism Mom: Not known Social History Lives w/ in apartment in [place]. No alcohol, tobacco, or drug use. (Martina Melgoza MD R1) Physical Exam Vital Signs Vital Signs Date Time Temp Pulse Resp B/P (MAP) Pulse Ox O2 Delivery O2 Flow Rate FiO2 02/09/18 11:27 48 16 133/61 (85) 98 Room Air 02/09/18 09:52 14 98 Room Air 02/09/18 09:36 57 14 133/61 (85) 98 02/09/18 09:24 97.1 53 18 137/65 (89) 100 Physical Exam GENERAL: This is a pale, nervous looking gentleman sitting up quietly in bed. SKIN: Cool and dry. Pale, small scar in the mid chest. HEAD: No temporal or scalp tenderness. EYES: Pupils equal round and reactive. Extraocular motions intact. No scleral icterus. No injection or drainage. ENT: Throat without erythema, tonsillar hypertrophy or exudate. Uvula midline. Airway patent. NECK: Trachea midline. No JVD. CARDIOVASCULAR: Regular rate and rhythm without murmurs, gallops, or rubs. No bruits appreciates. Pulses 2+ in upper and lower extremities. RESPIRATORY: Clear to auscultation. Breath sounds equal bilaterally. No wheezes , rales, or rhonchi. GASTROINTESTINAL: Abdomen soft, non-tender, nondistended. No hepato-splenomegaly , or palpable masses. No guarding. MUSCULOSKELETAL: Extremities without clubbing, cyanosis, or edema. No joint tenderness, effusion, or edema noted. No calf tenderness. Worsening shoulder pain w/active and passive shoulder abduction, flexion, and internal rotation. This resolves w/continued movements, but seems to continue to have stiffness. Shoulder joint and chest are not tender to palpation. NEUROLOGICAL: Awake and alert x2 (oriented to place and name, not year or month) . CN 2-12 intact. Motor and sensory grossly within normal limits. Five out of 5 muscle strength in all muscle groups. Normal speech. Slight tremor in both upper extremities, negative asterixis. Laboratory Laboratory Tests Test 02/09/18 09:44 White Blood Count 4.9 Red Blood Count 4.15 Hemoglobin 12.3 Hematocrit 36.2 Mean Corpuscular Volume 87.3 Mean Corpuscular Hemoglobin 29.7 Mean Corpuscular Hemoglobin Concent 34.0 Red Cell Distribution Width 13.8 Platelet Count 133 Mean Platelet Volume 7.9 Neutrophils (%) (Auto) 65.1 Lymphocytes (%) (Auto) 21.5 Monocytes (%) (Auto) 9.9 Eosinophils (%) (Auto) 2.7 Basophils (%) (Auto) 0.8 Neutrophils # (Auto) 3.2 Lymphocytes # (Auto) 1.1 Monocytes # (Auto) 0.5 Eosinophils # (Auto) 0.1 Basophils # (Auto) 0.0 CBC Comment DIFF FINAL Differential Comment Prothrombin Time 10.7 Prothromb Time International Ratio 1.1 Activated Partial Thromboplast Time 23.6 Blood Urea Nitrogen 12 Creatinine 0.95 Random Glucose 103 Calcium Level 8.3 Magnesium Level 2.1 Sodium Level 141 Potassium Level 3.9 Chloride Level 107 Carbon Dioxide Level 27.6 Anion Gap 6 Estimat Glomerular Filtration Rate 78 Total Creatine Kinase 136 Creatine Kinase MB 1.9 Troponin I 1.34 (AbidMartina MD R1) Result Diagram: 02/09/1894302/09/18943 Imaging Last Impressions Shoulder X-Ray 02/09/18940 Signed Impressions: CONCLUSION: No acute abnormality. Chest X-Ray 02/09/18940 Signed Impressions: CONCLUSION: Right middle lobe consolidation. Course PER ED NOTE: "EKG did not show acute ST changes. Troponins are fairly elevated. Case was discussed with Dr. Diaz who states that he thinks the troponin may be secondary to recent RI rather than an acute cardiac issue. Patient's chest pain is waxing and waning and as a matter of fact he is not even concerned about it he just states that he is fairly anxious now. He wanted to get his morning Prozac and that was given in the ER. He was also given aspirin considering the situation. Dr. Diaz did not want the patient started on heparin at this time. He wants to troponin trended fevers. Case is discussed with family practice resident service for admission as an observation." (Martina Melgoza MD R1) [place] VTE Risk Assessment [place] VTE Risk Assessment: Mod/High Risk (score >= 2) (Martina Melgoza MD R1) Assessment and Plan Assessment and Plan Patient is a 72 y/o M w/hx of NSTEMI and recent cardiac cath admitted to obs for atypical chest pain. Patient is stable. However, due to elevated troponin on admission, patient will require ACS r/o. PA&LAT CXR shows right middle lobe consolidation; however, patient does not meet clinical criteria (based on vitals , symptoms/ROS, and exam) for requiring treatment at this time. Monitor patient overnight. Touched Dr. Diaz, who agrees w/current plan. States that elevated troponin is likely residual from post-RI and PCI procedure. Will touch base w/ cardio if troponin level rises or if any part of ACS r/o is positive. Code Status FULL (Martina Melgoza MD R1) Attending Attestation Pt. seen and examined; discussed with the resident team. Documentation in my own progress note. (Calli Paez MD) Problem List: (1) Atypical chest pain ICD Codes: R07.89 - Other chest pain Status: Acute Plan: Intermittent, stabbing pain appearing to worsen w/movement Physical exam benign. Diff: anxiety v MSK Trend EKG and cardiac enzymes q6H cardiac tele heart healthy diet Tylenol 500 mg Q4H PRN for pain Resume meds for anxiety and depression (2) Elevated troponin I level ICD Codes: R74.8 - Abnormal levels of other serum enzymes Status: Acute Plan: Likely residual from procedure during last hospitalization. See above (3) Anxiety ICD Codes: F41.9 - Anxiety disorder, unspecified Status: Acute Plan: Con't home Prozac 10 mg daily and Trazodone 50 mg HS (4) Coronary artery disease ICD Codes: I25.10 - Atherosclerotic heart disease of [place] coronary artery without angina pectoris Status: Acute Plan: Hx of recent cardiac cath due to NSTEMI involving mid-LAD and RCA. 3 Stents placed on 02/04 Con't home meds aspirin, atorvastatin, plavix, and isosorbide mononitrate (5) FEN Plan: Fluids: PO Electrolytes: none Nutrition: heart healthy DVT prophy: on home plavix, SCDs (Martina Melgoza MD R1) Problem Qualifiers (1) Coronary artery disease: Qualified Codes: I25.10 - Atherosclerotic heart disease of [place] coronary artery without angina pectoris Martina Melgoza MD R1 Feb 09, 2018 11:47 Calli Paez MD Feb 09, 2018 15:31
[2018-02-09] MEDS ORDERED: SODIUM CHLORIDE 0.9% FLUSH 10 ML FLUSH IV FLUSH PRN (12:30)
--- NOTE | 2018-02-09 14:02 | HHI.FPPN ---
Subjective Remarks Pt seen and examined, discussed with Drs. Melgoza and Meseret. This is a 72 yo male who had cardiac cath on 02-04-18 and received 2 stents. He was at home this a.m. and noted right upper lateral chest and right shoulder pain. He is right handed. Pain was sharp and exacerbated by abduction at the shoulder. Please see observation H&P for this admission for additional historical details. He has no pain now. No shortness of breath. reports that their toilet was plugged and he had to vigorously plunge it to free it up yesterday. Objective Vitals Vital Signs Date Time Temp Pulse Resp B/P (MAP) Pulse Ox O2 Delivery O2 Flow Rate FiO2 02/09/18 13:40 51 16 128/71 (90) 99 02/09/18 11:27 48 16 133/61 (85) 98 Room Air 02/09/18 09:52 14 98 Room Air 02/09/18 09:36 57 14 133/61 (85) 98 02/09/18 09:24 97.1 53 18 137/65 (89) 100 Result Diagram: 02/09/18 0944 02/09/18 0944 Other Results Laboratory Tests Test 02/09/18 09:44 02/09/18 13:33 White Blood Count 4.9 TH/MM3 Red Blood Count 4.15 MIL/MM3 Hemoglobin 12.3 GM/DL Hematocrit 36.2 % Mean Corpuscular Volume 87.3 FL Mean Corpuscular Hemoglobin 29.7 PG Mean Corpuscular Hemoglobin Concent 34.0 % Red Cell Distribution Width 13.8 % Platelet Count 133 TH/MM3 Mean Platelet Volume 7.9 FL Neutrophils (%) (Auto) 65.1 % Lymphocytes (%) (Auto) 21.5 % Monocytes (%) (Auto) 9.9 % Eosinophils (%) (Auto) 2.7 % Basophils (%) (Auto) 0.8 % Neutrophils # (Auto) 3.2 TH/MM3 Lymphocytes # (Auto) 1.1 TH/MM3 Monocytes # (Auto) 0.5 TH/MM3 Eosinophils # (Auto) 0.1 TH/MM3 Basophils # (Auto) 0.0 TH/MM3 CBC Comment DIFF FINAL Differential Comment Prothrombin Time 10.7 SEC Prothromb Time International Ratio 1.1 RATIO Activated Partial Thromboplast Time 23.6 SEC Blood Urea Nitrogen 12 MG/DL Creatinine 0.95 MG/DL Random Glucose 103 MG/DL Calcium Level 8.3 MG/DL Magnesium Level 2.1 MG/DL Sodium Level 141 MEQ/L Potassium Level 3.9 MEQ/L Chloride Level 107 MEQ/L Carbon Dioxide Level 27.6 MEQ/L Anion Gap 6 MEQ/L Estimat Glomerular Filtration Rate 78 ML/MIN Total Creatine Kinase 136 U/L Creatine Kinase MB 1.9 NG/ML Troponin I 1.34 NG/ML EKG sinus smiley. Imaging Last Impressions Shoulder X-Ray 02/09/18940 Signed Impressions: CONCLUSION: No acute abnormality. Chest X-Ray 02/09/18940 Signed Impressions: CONCLUSION: Right middle lobe consolidation. Objective Remarks O. CONSTITUTIONAL/GEN: normally nourished, in NAD. Flat affect. EYES: conjunctiva normal, PERRLA, EOMI. ENT: Mouth and pharynx normal. NECK: supple LUNGS: clear A-P, respiratory effort is normal. CARDIOVASCULAR: RR without murmur or gallop. No significant edema. No pain on AP compression. GI/ABD: soft without masses, without organomegaly. BS + NEURO: No focal deficits. Gait is normal SKIN: color normal, no rashes noted. HEME/LYMPH: no petechia or significant adenopathy MUSC: back is normal in appearance. Extremities are normal in appearance. No edema. PSYCH/MENTAL STATUS: Alert and oriented x 3. A/P Assessment and Plan Patient is a 72 y/o M w/hx of NSTEMI and recent cardiac cath admitted to obs for atypical chest pain. Patient is stable. However, due to elevated troponin on admission, patient will require ACS r/o. Plan to touch base w/Dr. Diaz and monitor patient overnight. Problem List: (1) Right middle lobe pneumonia ICD Codes: J18.1 - Lobar pneumonia, unspecified organism Status: Acute (2) Atypical chest pain ICD Codes: R07.89 - Other chest pain Status: Acute Plan: Intermittent, stabbing pain appearing to worsen w/movement Physical exam benign. CXR shows right middle lobe consolidation Diff: anxiety v MSK v post-cath Trend EKG and cardiac enzymes q6H cardiac tele heart healthy diet Tylenol 500 mg Q4H PRN for pain Resume meds for anxiety and depression (3) Elevated troponin I level ICD Codes: R74.8 - Abnormal levels of other serum enzymes Status: Acute Plan: See above (4) Anxiety ICD Codes: F41.9 - Anxiety disorder, unspecified Status: Acute Plan: Con't home Prozac 10 mg daily and Trazodone 50 mg HS (5) Coronary artery disease ICD Codes: I25.10 - Atherosclerotic heart disease of [place] coronary artery without angina pectoris Status: Acute Plan: Hx of recent cardiac cath due to NSTEMI involving mid-LAD and RCA. 3 Stents placed on 02/04 Con't home meds aspirin, atorvastatin, plavix, and isosorbide mononitrate (6) FEN Plan: Fluids: PO Electrolytes: none Nutrition: heart healthy DVT prophy: on home plavix, SCDs Problem Qualifiers (1) Right middle lobe pneumonia: Qualified Codes: J18.1 - Lobar pneumonia, unspecified organism (2) Coronary artery disease: Qualified Codes: I25.10 - Atherosclerotic heart disease of [place] coronary artery without angina pectoris Calli Paez MD Feb 09, 2018 14:02
[2018-02-09 14:30] LABS: TROPONIN I 1.05 NG/ML (0.02-0.05)
--- NOTE | 2018-02-09 14:33 | MB ---
cc: Angel Luis Diaz MD DATE: 02/09/2018 DATE OF CONSULTATION: 02/09/2018 INDICATION: Chest pain. CONSULTATION REQUESTED BY: Emergency department physician, Dr. Lowe. HISTORY OF PRESENT ILLNESS: This is a 72-year-old gentleman with recent non-ST elevation myocardial infarction who had presented with chest pain symptoms. He just underwent cardiac catheterization on 02/04/2018 and was discharged on 02/05/2018. At that time, he underwent a percutaneous intervention to the left anterior descending coronary artery and first diagonal branch. He does have some baseline dementia and anxiety, which may be exacerbating some of his symptoms. He was in his usual state of health, doing well. His does recall that he had pretty vigorously tried to plunge their toilet for several minutes. Shortly thereafter, he developed some right-sided atypical type sharp pain lasting a couple of minutes. It did not radiate. No associated shortness of breath or diaphoresis. She was a little concerned and brought him into the emergency department. Electrocardiogram showed no significant ischemic changes, but troponin was drawn, which was mildly elevated. The patient denies any rosalinda anginal type symptoms. I was called and consulted for further recommendations. PAST MEDICAL HISTORY: History of DVT back in 2003, also in 2013, depression, anxiety, dementia and coronary artery disease with percutaneous intervention. MEDICATIONS: He is on isosorbide, atorvastatin, aspirin, Plavix, trazodone and Prozac. His had talked with the pharmacist who recommended that he not be on both aspirin and Plavix, so he has not been taking his aspirin. FAMILY HISTORY: Denies any family history of early coronary artery disease or sudden cardiac . SOCIAL HISTORY: He lives with his in an apartment in [place]. Denies any alcohol, tobacco or drug use. REVIEW OF SYSTEMS: A 12-point review of systems was performed, negative unless otherwise noted in History Of Present Illness. PHYSICAL EXAMINATION: VITAL SIGNS: Temperature is 97, pulse is 51 beats per minute, blood pressure 128/71 mmHg. GENERAL: Alert and oriented x3, in no acute distress. HEENT: Shows pupils are reactive to light and accommodation. Extraocular movements are intact. NECK: No elevation of jugular venous distention. No thyromegaly, lymphadenopathy. No carotid bruits. LUNGS: Clear to auscultation bilaterally. CARDIOVASCULAR: Regular rate and rhythm without murmurs, rubs or gallops. ABDOMEN: Nontender, nondistended. Good bowel sounds. No hepatosplenomegaly. EXTREMITIES: Show no clubbing, cyanosis or edema. Good peripheral pulses. NEUROLOGIC: Cranial nerves intact. Motor and sensory grossly intact. LABORATORY DATA: Sodium 141, potassium 3.9, BUN is 12, creatinine 0.95. Troponins is elevated at 1.34. INR is 1.1. WBC is 4.9, hemoglobin is 12.3, and platelet count is 133. ASSESSMENT: 1. Atypical chest pain. 2. History of coronary artery disease with recent percutaneous intervention. PLAN: His symptoms are very atypical and not similar to his recent chest pain with angina. Electrocardiograms are unremarkable. His troponin is elevated, but I suspect it is actually trending down. During the procedure he did have some brief of time with a SHAHAB-1 flow secondary to balloon angioplasty prior to stent placement. That probably did have some associated myocardial ischemia and troponin elevation. At this point, I recommend that we follow the trend for troponin. His symptoms have resolved. It sounds more musculoskeletal in etiology. If he has no further symptoms and troponins are fairly flat and electrocardiogram is unremarkable, we will probably discharge him tomorrow. He has outpatient followup appointment with me already. Discussed possible options with the at length. He still has a right coronary lesion. There was some debate whether we would consider staged intervention since he did not really tolerate sedation very well with the first intervention. At this point, we are going to just plan to medically manage the right coronary. If he has recurrence suggestive of anginal symptoms or other objective findings for ischemia on stress testing, then we would proceed with intervention, so we may consider an outpatient Lexiscan upon full recovery. MD FAMILIA Dailey/SB , 02:08 PM , 02:32 PM
[2018-02-09] MEDS: ACETAMINOPHEN 500 MG CPLT PO PRN ×2 (16:46→20:41)
--- NOTE | 2018-02-09 18:20 | EKG ---
Date Performed: 02/09/2018 Time Performed: 09:46:56 PTAGE: 72 years EKG: SINUS BRADYCARDIA NONSPECIFIC T-WAVE ABNORMALITY BORDERLINE ECG PREVIOUS TRACING : 02/05/2018 06.15 Since the previous tracing, no significant change noted DOCTOR: Latonia Owusu Interpretating Date/Time 02/09/2018 18:18:42
[2018-02-09] MEDS: SODIUM CHLORIDE 0.9% FLUSH 10 ML FLUSH IV FLUSH SCH (20:42)
[2018-02-09] MEDS ORDERED: traZODone HCL 50 MG TAB PO SCH (21:00)
[2018-02-09] MEDS ORDERED: FLUoxetine HCL 10 MG CAP PO SCH (21:00)
[2018-02-09 22:31] LABS: TROPONIN I 0.84 NG/ML (0.02-0.05)
[2018-02-10] MEDS ORDERED: LORazepam 0.5 MG TAB PO ONE (00:30)
[2018-02-10 03:23] VITALS: BP 150/77; PULSE 55; RESP 20; TEMP 97.5; O2SAT 99
[2018-02-10] MEDS: ACETAMINOPHEN 500 MG CPLT PO PRN (05:35)
[2018-02-10] MEDS ORDERED: ISOSORBIDE MONONITRATE 60 MG CR TAB (IMDUR) PO SCH (07:00)
--- NOTE | 2018-02-10 07:34 | PD.CARD.PN ---
Subjective Subjective Remarks at bedside. Patient continues to have right shoulder pain after plunging the toilet. No midsternal chest discomfort like he had prior to his stent last week. Denies any shortness of breath. (Johnny Vargas) Objective Medications Current Medications Medications (Trade) Dose Ordered Sig/Leydi Route Start Time Stop Time Status Last Admin (Aspirin Chew) 81 mg DAILY PO 02/10/18 09:00 (Lipitor) 20 mg DAILY PO 02/10/18 09:00 (Plavix) 75 mg DAILY PO 02/10/18 09:00 (PROzac) 10 mg HS PO 02/09/18 21:00 02/09/18 20:39 (Imdur) 60 mg DAILY@07 PO 02/10/18 07:00 02/10/18 05:35 (Desyrel) 50 mg HS PO 02/09/18 21:00 02/09/18 20:39 (NS Flush) 2 ml BID IV FLUSH 02/09/18 21:00 02/09/18 20:42 (NS Flush) 2 ml UNSCH PRN IV FLUSH 02/09/18 12:30 (Tylenol) 500 mg Q4H PRN PO 02/09/18 12:30 02/10/18 05:35 Vital Signs / I&O Vital Signs Date Time Temp Pulse Resp B/P (MAP) Pulse Ox O2 Delivery O2 Flow Rate FiO2 02/10/18 03:23 97.5 55 20 150/77 (101) 99 02/09/18 23:24 97.1 50 18 137/73 (94) 98 02/09/18 20:00 97.7 51 18 117/64 (81) 98 02/09/18 20:00 48 02/09/18 16:33 58 02/09/18 15:00 97.8 50 20 118/68 (85) 99 02/09/18 14:49 96.4 51 20 128/65 (86) 99 02/09/18 13:40 51 16 128/71 (90) 99 02/09/18 11:27 48 16 133/61 (85) 98 Room Air 02/09/18 09:52 14 98 Room Air 02/09/18 09:36 57 14 133/61 (85) 98 02/09/18 09:24 97.1 53 18 137/65 (89) 100 I/O 02/09/18 02/09/18 02/09/18 02/10/18 02/10/18 02/10/18 07:00 15:00 23:00 07:00 15:00 23:00 Intake Total 240 ml 240 ml Output Total 250 ml Balance 240 ml -10 ml Intake Oral 240 ml 240 ml Output Urine Total 250 ml # Voids 1 2 # Bowel Movements 0 Physical Exam GENERAL: Well-developed well-nourished. In no acute distress. NECK: No carotid bruits. No JVD. CARDIOVASCULAR: Regular rate and rhythm. No murmur appreciated. RESPIRATORY: No accessory muscle use. Clear to auscultation. Breath sounds equal bilaterally. MUSCULOSKELETAL: No clubbing or cyanosis. No edema. NEUROLOGICAL: Awake and alert. Normal speech. Laboratory Laboratory Tests Test 02/09/18 09:44 02/09/18 13:33 02/09/18 21:37 02/10/18 04:55 White Blood Count 4.9 TH/MM3 Red Blood Count 4.15 MIL/MM3 Hemoglobin 12.3 GM/DL Hematocrit 36.2 % Mean Corpuscular Volume 87.3 FL Mean Corpuscular Hemoglobin 29.7 PG Mean Corpuscular Hemoglobin Concent 34.0 % Red Cell Distribution Width 13.8 % Platelet Count 133 TH/MM3 Mean Platelet Volume 7.9 FL Neutrophils (%) (Auto) 65.1 % Lymphocytes (%) (Auto) 21.5 % Monocytes (%) (Auto) 9.9 % Eosinophils (%) (Auto) 2.7 % Basophils (%) (Auto) 0.8 % Neutrophils # (Auto) 3.2 TH/MM3 Lymphocytes # (Auto) 1.1 TH/MM3 Monocytes # (Auto) 0.5 TH/MM3 Eosinophils # (Auto) 0.1 TH/MM3 Basophils # (Auto) 0.0 TH/MM3 CBC Comment DIFF FINAL Differential Comment Prothrombin Time 10.7 SEC Prothromb Time International Ratio 1.1 RATIO Activated Partial Thromboplast Time 23.6 SEC Blood Urea Nitrogen 12 MG/DL Creatinine 0.95 MG/DL Random Glucose 103 MG/DL Calcium Level 8.3 MG/DL Magnesium Level 2.1 MG/DL Sodium Level 141 MEQ/L Potassium Level 3.9 MEQ/L Chloride Level 107 MEQ/L Carbon Dioxide Level 27.6 MEQ/L Anion Gap 6 MEQ/L Estimat Glomerular Filtration Rate 78 ML/MIN Total Creatine Kinase 136 U/L 134 U/L 112 U/L Creatine Kinase MB 1.9 NG/ML Troponin I 1.34 NG/ML 1.05 NG/ML 0.84 NG/ML B-Type Natriuretic Peptide 127 PG/ML Imaging Last 24 hours Impressions Shoulder X-Ray 02/09/18940 Signed Impressions: CONCLUSION: No acute abnormality. Chest X-Ray 02/09/18940 Signed Impressions: CONCLUSION: Right middle lobe consolidation. (Johnny Vargas) Assessment and Plan Assessment and Plan 72-year-old male with recent stent who presented with atypical chest Right shoulder pain: Seems musculoskeletal and is not typical for patient's previous anginal pain. Elevated troponin: Trending down since admission, elevation likely due to recent catheterization. CAD: Continue aspirin, statin, Plavix, Imdur. No beta-amanuel with borderline bradycardia. Discussed with Dr. Diaz, discharge planning for today (Johnny Vargas) Assessment and Plan ok for DC (Angel Luis Diaz MD) Johnny Vargas Feb 10, 2018 07:34 Angel Luis Diaz MD Feb 10, 2018 10:01
[2018-02-10 07:36] VITALS: BP 115/62; PULSE 57; RESP 20; TEMP 97.4; O2SAT 99
[2018-02-10] MEDS: SODIUM CHLORIDE 0.9% FLUSH 10 ML FLUSH IV FLUSH SCH (08:40)
[2018-02-10] MEDS ORDERED: ATORVASTATIN 20 MG TAB PO SCH (09:00)
[2018-02-10] MEDS ORDERED: CLOPIDOGREL 75 MG TAB PO SCH (09:00)
[2018-02-10] MEDS ORDERED: ASPIRIN 81 MG CHEW TAB PO SCH (09:00)
[2018-02-10 09:01] VITALS: O2SAT 99
[2018-02-10 09:45] LABS: AUTOMATED NEUTROPHIL # 3.6 TH/MM3 (1.8-7.7); BASOPHIL % 0.8 % (0.0-2.0); EOSINOPHIL # 0.1 TH/MM3 (0-0.4); EOSINOPHIL % 2.1 % (0.0-4.0); HEMATOCRIT 36.7 % (39.0-51.0); HEMOGLOBIN 12.5 GM/DL (13.0-17.0); LYMPH % 21.3 % (9.0-44.0); LYMPHOCYTE # 1.2 TH/MM3 (1.0-4.8); MEAN CELL VOLUME 86.4 FL (80.0-100.0); MEAN CORPUSCULAR HEMOGLOBIN 29.5 PG (27.0-34.0); MEAN CORPUSCULAR HGB CONC 34.2 % (32.0-36.0); MEAN PLATELET VOLUME 7.8 FL (7.0-11.0); MONO % 9.5 % (0.0-8.0); MONOCYTE # 0.5 TH/MM3 (0-0.9); NEUT % 66.3 % (16.0-70.0); PLATELET COUNT 141 TH/MM3 (150-450); RED BLOOD COUNT 4.24 MIL/MM3 (4.50-5.90); RED CELL DISTRIBUTION WIDTH 13.6 % (11.6-17.2); WHITE BLOOD COUNT 5.4 TH/MM3 (4.0-11.0)
[2018-02-10 09:47] LABS: BICARBONATE 26.4 MEQ/L (21.0-32.0); CALCIUM 8.9 MG/DL (8.5-10.1); CREATININE 0.87 MG/DL (0.60-1.30)
[2018-02-10 10:50] VITALS: BP 125/64; PULSE 55; RESP 20; TEMP 97.5; O2SAT 100
--- NOTE | 2018-02-10 11:47 | HHI.DCPOC ---
Discharge Care Plan Diagnosis: (1) Atypical chest pain (2) Coronary artery disease (3) Elevated troponin I level (4) Anxiety Goals to Promote Your Health * To prevent worsening of your condition and complications * To maintain your health at the optimal level Directions to Meet Your Goals Take your medications as prescribed Follow your dietary instruction Follow activity as directed Keep your appointments as scheduled Take your immunizations and boosters as scheduled If your symptoms worsen call your PCP, if no PCP go to Urgent Care Center or Emergency Room Smoking is Dangerous to Your Health. Avoid second hand smoke Call the 24-hour hour crisis hotline for domestic abuse at Martina Melgoza MD R1 Feb 10, 2018 11:47
--- NOTE | 2018-02-10 15:34 | EKG ---
Date Performed: 02/09/2018 Time Performed: 15:51:46 PTAGE: 72 years EKG: SINUS BRADYCARDIA NONSPECIFIC T-WAVE ABNORMALITY Since previous tracing, no significant jj nge noted BORDERLINE ECG PREVIOUS TRACING : 02/09/2018 09.46 DOCTOR: Cassandra Roberts Interpretating Date/Time 02/10/2018 15:32:36
--- NOTE | 2018-02-10 15:34 | EKG ---
Date Performed: 02/09/2018 Time Performed: 23:02:20 PTAGE: 72 years EKG: SINUS BRADYCARDIA LOW QRS VOLTAGE IN PRECORDIAL LEADS NONSPECIFIC T-WAVE ABNORMALITY Since previous tracing, no significant change noted BORDERLINE ECG PREVIOUS TRACING : 02/09/2018 15.51 DOCTOR: Latonia Owusu Interpretating Date/Time 02/10/2018 15:32:45
--- NOTE | 2018-02-10 17:09 | HHI.FPPN ---
Subjective Remarks Per the night team, patient became very anxious and seemed to have a panic attack. Ativan 1 was administered. Vitals are stable overnight. Patient states that he is ready to go home today. Patient states that his shoulder still bothers him. (Martina Melgoza MD R1) Objective Vitals Vital Signs Date Time Temp Pulse Resp B/P (MAP) Pulse Ox O2 Delivery O2 Flow Rate FiO2 02/10/18 10:50 97.5 55 20 125/64 (84) 100 02/10/18 09:01 99 21 02/10/18 07:36 97.4 57 20 115/62 (79) 99 02/10/18 03:23 97.5 55 20 150/77 (101) 99 02/09/18 23:24 97.1 50 18 137/73 (94) 98 02/09/18 20:00 97.7 51 18 117/64 (81) 98 02/09/18 20:00 48 I/O 02/09/18 02/09/18 02/09/18 02/10/18 02/10/18 02/10/18 07:00 15:00 23:00 07:00 15:00 23:00 Intake Total 240 ml 240 ml Output Total 250 ml Balance 240 ml -10 ml Intake Oral 240 ml 240 ml Output Urine Total 250 ml # Voids 1 2 # Bowel Movements 0 (Martina Melgoza MD R1) Result Diagram: 02/10/18 0856 02/10/18 0856 Objective Remarks O. CONSTITUTIONAL/GEN: An elderly, nervous appearing gentleman eating breakfast in bed. Does not answer many questions. is at bedside. EYES: conjunctiva normal, PERRLA, EOMI. ENT: Mouth and pharynx normal. NECK: supple LUNGS: clear A-P, respiratory effort is normal. CARDIOVASCULAR: RR without murmur or gallop. No significant edema. GI/ABD: soft without masses, without organomegaly. BS + NEURO: No focal deficits. SKIN: color normal, no rashes noted. PSYCH/MENTAL STATUS: Flat affect. Does not answer many questions. (Martina Melgoza MD R1) A/P Assessment and Plan Patient is a 72 y/o M w/hx of NSTEMI and recent cardiac cath admitted to obs for atypical chest pain. Patient underwent ACS rule out. No acute events on cardiac telemetry. Cardiology was consulted, saw patient today. Suspect right shoulder pain is likely musculoskeletal. Patient is cleared for discharge today by cardiology. Will discharge home with orders to follow-up with PCP. Discharge Planning Discharge today. (Martina Melgoza MD R1) Attending Attestation Patient seen and examined. Case reviewed and discussed with the resident team. Agree with plan of care as discussed with me and documented in the resident note. (Calli Paez MD) Problem List: (1) Atypical chest pain ICD Codes: R07.89 - Other chest pain Status: Acute Plan: Likely musculoskeletal. EKG within normal limits, cardiac enzymes downtrended overnight (2) Elevated troponin I level ICD Codes: R74.8 - Abnormal levels of other serum enzymes Status: Acute Plan: Likely residual from procedure during last hospitalization. See above (3) Anxiety ICD Codes: F41.9 - Anxiety disorder, unspecified Status: Acute Plan: Con't home Prozac 10 mg daily (preferably in the a.m.) and Trazodone 50 mg HS (4) Coronary artery disease ICD Codes: I25.10 - Atherosclerotic heart disease of [place] coronary artery without angina pectoris Status: Acute Plan: Hx of recent cardiac cath due to NSTEMI involving mid-LAD and RCA. 3 Stents placed on 02/04 Con't home meds aspirin, atorvastatin, plavix, and isosorbide mononitrate (5) FEN Plan: Fluids: PO Electrolytes: none Nutrition: heart healthy DVT prophy: on home plavix, SCDs (Martina Melgoza MD R1) Problem Qualifiers (1) Coronary artery disease: Qualified Codes: I25.10 - Atherosclerotic heart disease of [place] coronary artery without angina pectoris Martina Melgoza MD R1 Feb 10, 2018 17:09 Calli Paez MD Feb 10, 2018 17:13
== END 2018-02-10 12:57 | disposition home or self-care (01) ==
LOC: NEPC 09:20 → NEDA 11:29 → NEDH 13:12 → NEPGCP 14:20
PROVIDERS: ADMIT Family Medicine; ATTEND Family Medicine
DX: R07.9 Chest pain, unspecified (principal); R74.8 Abnormal levels of other serum enzymes; I25.10 Atherosclerotic heart disease of native coronary artery without angina pectoris; F41.1 Generalized anxiety disorder; F32.9 Major depressive disorder, single episode, unspecified; F03.90 Unspecified dementia, unspecified severity, without behavioral disturbance, psychotic disturbance, mood disturbance, and anxiety; Z79.899 Other long term (current) drug therapy; Z79.01 Long term (current) use of anticoagulants; R00.1 Bradycardia, unspecified; I25.2 Old myocardial infarction; Z86.718 Personal history of other venous thrombosis and embolism; Z95.5 Presence of coronary angioplasty implant and graft; R94.31 Abnormal electrocardiogram [ECG] [EKG]
CPT/HCPCS: 71046; 73030; 80048; 82550; 82552; 83735; 83880; 84484; 85025; 85610; 85730; 93005; 99285; G0378

== ENCOUNTER 2018-02-16 04:46 | Observation (INO) | payer MEDICARE, BC ==
[~2018-02-16] VITALS: Ht 182.9 cm; Wt 55.0 kg
[2018-02-16] VITALS (8 sets, daily range): BP systolic 153–177; BP diastolic 74–85; PULSE 57–78; RESP 16–20; TEMP 97.2–98.2; O2SAT 97–100
[2018-02-16] MEDS ORDERED: ASPIRIN 81 MG CHEW TAB CHEW ONE (05:15)
[2018-02-16] MEDS ORDERED: NITROGLYCERIN 2% OINT 1 GM PACKET TOPICAL ONE (05:15)
--- NOTE | 2018-02-16 05:21 | PD ---
HPI Chief Complaint: Chest Pain Time Seen by Provider: 05:03 Travel History International Travel<30 days: No Contact w/Intl Traveler<30days: No Traveled to known affect area: No History of Present Illness HPI The patient is a 72 year old male who presents to the [facility] emergency department with a history of chest pain that began approximately 1-1/2 hours prior to arrival according to his . The patient does have some memory problems related to dementia, therefore she does provide most of his history. She reports that he first complained of this about an hour and a half ago. The patient shows me that the pain is in the center of his upper chest and just below his left breast/areola. The patient reports that the pain is sharp in character. He says that it is at times worse with taking a deep breath. He denies having any associated shortness of breath, diaphoresis, nausea or vomiting. Patient's reports a recent history of admission for non-STEMI. The patient underwent cardiac catheterization on February 04 by his accounting coordinator, Dr. Diaz. The patient at that time was noted to have three-vessel disease and 2 stents were placed, one in the left anterior descending artery in the other in the first diagonal branch. Unfortunately, the patient did not tolerate sedation for the cardiac catheterization well, therefore intervention on the right coronary artery was not able to be done. According to Dr. Diaz's records , he did recommend medical management at this point, and consideration of further intervention if the patient has additional stress testing after full recovery from this non-STEMI that is abnormal, then he would consider additional intervention for the RCA. The patient's reports that Wednesday of last week he began to have right shoulder pain. She was concerned that it may be related to his cardiac disease, therefore she did bring him to the emergency department. The patient was admitted overnight for observation. The patient's troponin was trended. It was elevated, however it appeared to be decreasing with time. The right shoulder pain was thought to be more musculoskeletal and the patient was discharged home. The patient continued on Plavix and aspirin along with his other medication regimen. The patient then followed up yesterday with his primary care physician regarding the right shoulder pain. The patient received a cortisone shot in the right shoulder and a prescription for tramadol. His reports that earlier this morning he awoke with the right shoulder pain again and then began to complain of chest pain, therefore she brought into the emergency department. He last took aspirin yesterday morning. On review of systems otherwise, they deny him having any recent fevers, cough, congestion, abdominal pain, diarrhea, urinary symptoms, or neurologic symptoms. The patient's incidentally reports that he also had swelling noted in 1 of his legs. She reports that she discuss this with 1 of his physicians and an ultrasound was done that ruled out DVT PFSH Past Medical History Narrative Medical The patient's past medical history is significant for hypertension, coronary artery disease, dementia, hyperlipidemia, prior history of DVT Anxiety: Yes Depression: Yes Heart Rhythm Problems: No Cancer: No Cardiac Catheterization: Yes (w/ stents) Cardiovascular Problems: Yes (STENT PLACEMENT - CARDIAC CATH 01/2018) High Cholesterol: No Chest Pain: Yes Congestive Heart Failure: No Dementia: Yes Diabetes: No Diminished Hearing: No Deep Vein Thrombosis: Yes Endocrine: No Genitourinary: No Immune Disorder: No Inguinal Hernia: Yes Musculoskeletal: Yes Neurologic: Yes (dementia) Psychiatric: Yes Reproductive: No Respiratory: No Immunizations Current: No Thyroid Disease: No Tetanus Vaccination: Unknown Influenza Vaccination: Yes Past Surgical History Narrative Surgical The patient's past surgical history is significant for hernia repair, cardiac catheterization with stent placement. Other Surgery: Yes (hernia surgery) Social History Alcohol Use: Yes (OCCASIONALLY) Tobacco Use: No Substance Use: No Allergies-Medications (Allergen,Severity, Reaction): Coded Allergies: hydromorphone (Verified Allergy, Severe, 02/16/18) lorazepam (Verified Allergy, Severe, 02/16/18) Reported Meds & Prescriptions Reported Meds & Active Scripts Active Tgt Aspirin (Aspirin) 81 Mg Chw 81 Mg PO DAILY Isosorbide Mononitrate ER (Isosorbide Mononitrate) 60 Mg Tab 60 Mg PO DAILY@07 Atorvastatin (Atorvastatin Calcium) 20 Mg Tab 20 Mg PO DAILY Plavix (Clopidogrel Bisulfate) 75 Mg Tab 75 Mg PO DAILY Reported Trazodone (Trazodone HCl) 50 Mg Tab 50 Mg PO HS Prozac (Fluoxetine HCl) 10 Mg Cap 10 Mg PO DAILY Review of Systems General / Constitutional: No: Fever Eyes: No: Visual changes HENT: No: Headaches, Congestion Cardiovascular: Positive: Chest Pain or Discomfort, No: Dyspnea on exertion Respiratory: No: Cough, Shortness of Breath Gastrointestinal: No: Nausea, Vomiting, Diarrhea, Abdominal Pain, Changes in Bowel Habits Genitourinary: No: Dysuria Musculoskeletal: No: Pain Skin: No Rash Neurologic: No: Weakness, Focal Abnormalities, Change in Mentation, Slurred Speech, Sensory Disturbance Psychiatric: No: Depression Endocrine: No: Polydipsia Hematologic/Lymphatic: No: Easy Bruising Physical Exam Narrative General: The patient is a well-developed well-nourished male in no acute distress. Head and Neck exam: Head is normocephalic atraumatic. Eyes: EOMI, pupils are equal round and reactive to light. Nose: Midline septum with pink mucous membranes Mouth: Dentition unremarkable. Moist mucus membranes. Posterior oropharynx is not erythematous. No tonsillar hypertrophy. Uvula midline. Airway patent. Neck: No palpable lymphadenopathy. No nuchal rigidity. No thyromegaly. Cardiovascular: Regular rate and rhythm without murmurs, gallops, or rubs. No pulse deficit to the extremities on simultaneous auscultation and palpation of his radial artery. Lungs: Clear to auscultation bilaterally. No wheezes, rhonchi, or rales. Abdomen: Soft, without tenderness to palpation in all 4 quadrants of the abdomen. No guarding, rebound, or rigidity. Normal bowel sounds are audible. No tenderness on palpation of McBurney's point. Negative Qiu sign. Extremities: No clubbing, cyanosis, or edema. 2+ pulses in all 4 extremities. No calf tenderness on palpation. The patient's right upper extremity is noted to have bruising along the ventral forearm. This is reportedly related to radial access for his cardiac catheterization in the right arm. The patient is also noted to have a Band-Aid along the right shoulder which the patient's reports is related to his cortisone injection. Back: No spinous process tenderness to palpation. No costovertebral angle tenderness to palpation. Neurologic Exam: Grossly nonfocal. The patient is slightly tremulous on exam. Skin Exam: No rash noted. Intact skin that is warm and dry. Data Data Last Documented VS Vital Signs Date Time Temp Pulse Resp B/P (MAP) Pulse Ox O2 Delivery O2 Flow Rate FiO2 02/16/18 05:41 Room Air 02/16/18 04:49 98.2 64 16 177/84 (115) 99 Orders Orders Electrocardiogram (02/16/18 05:03) Complete Blood Count With Diff (02/16/18 05:03) Comprehensive Metabolic Panel (02/16/18 05:03) Creatine Kinase (Cpk) (02/16/18 05:03) Ckmb (Isoenzyme) Profile (02/16/18 05:03) Troponin I (02/16/18 05:03) B-Type Natriuretic Peptide (02/16/18 05:03) Prothrombin Time / Inr (Pt) (02/16/18 05:03) Act Partial Throm Time (Ptt) (02/16/18 05:03) Lipase (02/16/18 05:03) Urinalysis - C+S If Indicated (02/16/18 05:03) Westergren Sedimentation Rate (02/16/18 05:03) Magnesium (Mg) (02/16/18 05:03) Chest, Single Ap (02/16/18 05:03) Iv Access Insert/Monitor (02/16/18 05:03) Ecg Monitoring (02/16/18 05:03) Oximetry (02/16/18 05:03) Aspirin Chew (Aspirin Chew) (02/16/18 05:15) Nitroglycerin 2% Oint (Nitroglycerin 2% (02/16/18 05:15) D-Dimer (02/16/18 05:19) CKMB (02/16/18 05:11) CKMB% (02/16/18 05:11) Ct Pulmonary Angiogram (02/16/18 06:44) Labs Laboratory Tests Test 02/16/18 05:11 02/16/18 05:25 White Blood Count 7.4 TH/MM3 Red Blood Count 4.51 MIL/MM3 Hemoglobin 13.2 GM/DL Hematocrit 38.7 % Mean Corpuscular Volume 85.7 FL Mean Corpuscular Hemoglobin 29.3 PG Mean Corpuscular Hemoglobin Concent 34.2 % Red Cell Distribution Width 13.8 % Platelet Count 196 TH/MM3 Mean Platelet Volume 7.1 FL Neutrophils (%) (Auto) 78.3 % Lymphocytes (%) (Auto) 13.0 % Monocytes (%) (Auto) 7.7 % Eosinophils (%) (Auto) 0.5 % Basophils (%) (Auto) 0.5 % Neutrophils # (Auto) 5.8 TH/MM3 Lymphocytes # (Auto) 1.0 TH/MM3 Monocytes # (Auto) 0.6 TH/MM3 Eosinophils # (Auto) 0.0 TH/MM3 Basophils # (Auto) 0.0 TH/MM3 CBC Comment DIFF FINAL Differential Comment Prothrombin Time 10.8 SEC Prothromb Time International Ratio 1.1 RATIO Activated Partial Thromboplast Time 23.4 SEC Blood Urea Nitrogen 17 MG/DL Creatinine 1.06 MG/DL Random Glucose 108 MG/DL Total Protein 7.2 GM/DL Albumin 4.0 GM/DL Calcium Level 8.5 MG/DL Magnesium Level 2.2 MG/DL Alkaline Phosphatase 46 U/L Aspartate Amino Transf (AST/SGOT) 25 U/L Alanine Aminotransferase (ALT/SGPT) 34 U/L Total Bilirubin 0.7 MG/DL Sodium Level 138 MEQ/L Potassium Level 4.2 MEQ/L Chloride Level 105 MEQ/L Carbon Dioxide Level 23.4 MEQ/L Anion Gap 10 MEQ/L Estimat Glomerular Filtration Rate 69 ML/MIN Total Creatine Kinase 135 U/L Creatine Kinase MB 1.2 NG/ML Troponin I 0.03 NG/ML B-Type Natriuretic Peptide 122 PG/ML Lipase 87 U/L Erythrocyte Sedimentation Rate 5 mm/hr D-Dimer Quantitative (PE/DVT) 0.64 MG/L [facility] Medical Decision Making Medical Screen Exam Complete: Yes Emergency Medical Condition: Yes Medical Record Reviewed: Yes Differential Diagnosis Acute coronary syndrome, versus PE, versus musculoskeletal strain, versus acid reflux, versus anxiety disorder Narrative Course During the course of the patient's emergency department visit, the patient's history, examination, and differential diagnosis were reviewed with the patient. The patient was placed on a sheet fed printer with oximetry and frequent blood pressure monitoring. The patient had IV access obtained and blood work sent for analysis. The patient had an EKG done on arrival that shows a sinus rhythm with a heart rate of 72, QRS duration is 106 ms, QTC is 418 ms. The patient has no acute ST segment elevation noted. T waves are inverted in V1, V2 , aVL. Well's score is 3, therefore a ddimer was added to the patient's workup. The patient was initially provided aspirin 324 mg p.o. 1. Nitroglycerin 1 inch the chest wall was provided. The patient's laboratory studies were reviewed and remarkable for a white count of 7.4, hemoglobin 13.2, platelets 196 with 78.3 neutrophils, sedimentation rate is 5, CMP is remarkable for glucose of 108, cardiac enzymes initial set are within normal limits, BNP is 122, lipase 87, PT PTT unremarkable, d-dimer elevated at 0.64, given the patient's elevated Wells score, a CT to rule out PE was ordered. Radiology studies were reviewed and remarkable for a chest x-ray that shows a patchy right lung base atelectasis. The patient's case was checked out to oncoming emergency physician to disposition the patient based on the conclusion of the patient's workup. CTA is pending. Diagnosis Primary Impression: Chest pain Qualified Codes: R07.9 - Chest pain, unspecified Additional Impression: History of coronary artery disease Maraí Buchanan MD Feb 16, 2018 05:21
[2018-02-16 05:31] LABS: AUTOMATED NEUTROPHIL # 5.8 TH/MM3 (1.8-7.7); BASOPHIL % 0.5 % (0.0-2.0); EOSINOPHIL % 0.5 % (0.0-4.0); HEMATOCRIT 38.7 % (39.0-51.0); HEMOGLOBIN 13.2 GM/DL (13.0-17.0); MEAN CELL VOLUME 85.7 FL (80.0-100.0); MEAN CORPUSCULAR HEMOGLOBIN 29.3 PG (27.0-34.0); MEAN CORPUSCULAR HGB CONC 34.2 % (32.0-36.0); MEAN PLATELET VOLUME 7.1 FL (7.0-11.0); MONO % 7.7 % (0.0-8.0); MONOCYTE # 0.6 TH/MM3 (0-0.9); NEUT % 78.3 % (16.0-70.0); PLATELET COUNT 196 TH/MM3 (150-450); RED BLOOD COUNT 4.51 MIL/MM3 (4.50-5.90); RED CELL DISTRIBUTION WIDTH 13.8 % (11.6-17.2); WHITE BLOOD COUNT 7.4 TH/MM3 (4.0-11.0)
--- NOTE | 2018-02-16 05:39 | RADRPT ---
EXAM DATE: 02/16/2018 5:32 AM EDT AGE/SEX: 72 years / Male INDICATIONS: Chest pain to anterior chest wall. CLINICAL DATA: This is the patient's initial encounter. Patient reports that signs and symptoms have been present for 1 day and indicates a pain score of 5/10. MEDICAL/SURGICAL HISTORY: None. . stent placement. [place] [facility] [place]. . FINDINGS: Single AP view of the chest. Patchy opacity of the medial right lung base. Cardiomediastina l silhouette within normal limits. No evidence of pleural effusion or pneumothorax. Sclerotic bone l esion in the proximal left humerus likely represents an infarct or enchondroma. CONCLUSION: Patchy right lung base atelectasis versus consolidation. Electronically signed by: Henry Collins MD 02/16/2018 5:38 AM EDT
[2018-02-16 05:46] LABS: INTERNATIONAL NORMALIZED RATIO 1.1 RATIO; PROTHROMBIN TIME - PATIENT 10.8 SEC (9.8-11.6)
[2018-02-16 05:52] LABS: ALT (GPT) 34 U/L (12-78); AST (GOT) 25 U/L (15-37); BICARBONATE 23.4 MEQ/L (21.0-32.0); BLOOD UREA NITROGEN 17 MG/DL (7-18); CALCIUM 8.5 MG/DL (8.5-10.1); CHLORIDE 105 MEQ/L (98-107); CREATININE 1.06 MG/DL (0.60-1.30); GLOMERULAR FILTRATION RATE 69 ML/MIN (>89); GLUCOSE,RANDOM 108 MG/DL (74-106); MAGNESIUM 2.2 MG/DL (1.5-2.5); SODIUM (NA) 138 MEQ/L (136-145)
[2018-02-16 05:55] LABS: ALKALINE PHOSPHATASE 46 U/L (45-117); TOTAL BILIRUBIN ADULT 0.7 MG/DL (0.2-1.0); TOTAL PROTEIN 7.2 GM/DL (6.4-8.2); TROPONIN I 0.03 NG/ML (0.02-0.05)
--- NOTE | 2018-02-16 07:49 | RADRPT ---
EXAM DATE: 02/16/2018 7:43 AM EDT AGE/SEX: 72 years / Male INDICATIONS: Chest pain CLINICAL DATA: This is the patient's initial encounter. Patient reports that signs and symptoms have been present for 1 day and indicates a pain score of 2/10. MEDICAL/SURGICAL HISTORY: Hypertension. Cardiovascular disease. Deep venous thrombosis. None. RADIATION DOSE: 18.02 CTDI (mGy) [place] [facility] [place]. . TECHNIQUE: Volumetric scanning was performed using a multi-row detector CT scanner during bolus infu pritesh of 72 ml Omnipaque 350 (iohexol) nonionic water-soluble contrast as a single exam dose. The parrish a was post processed with a variety of visualization algorithms including full volume maximum intensi ty projection and sliding thin slab reformation. Using automated exposure control and adjustment of the mA and/or kV according to patient size, radiation dose was kept as low as reasonably achievable t o obtain optimal diagnostic quality images. FINDINGS: Slight right lung base atelectasis and/or infiltrate is seen. There is mild atelectasis left lung ba se . There is no pleural effusion. No appreciable pathological adenopathy is seen within the medias tinum. There is no evidence of PE for technique. Numerous calcified granulomas are present in the s pleen. CONCLUSION: Slight bibasilar atelectasis and/or infiltrate worse on the right, otherwise unremarkabl e. Electronically signed by: Ana Pillai MD 02/16/2018 7:48 AM EDT
--- NOTE | 2018-02-16 08:08 | PD ---
Physical Exam Narrative GENERAL: 72-year-old male in no apparent distress SKIN: Focused skin assessment warm/dry. HEAD: Atraumatic. Normocephalic. EYES: No scleral icterus. No injection or drainage. ENT: No nasal bleeding or discharge. Mucous membranes pink and moist. NECK: Trachea midline. CARDIOVASCULAR: Regular rate and rhythm Respiratory: No increased effort MUSCULOSKELETAL: No obvious deformities. NEUROLOGICAL: Awake. moves extremities Data Data Last Documented VS Vital Signs Date Time Temp Pulse Resp B/P (MAP) Pulse Ox O2 Delivery O2 Flow Rate FiO2 02/16/18 09:03 68 18 165/84 (111) 100 Room Air 02/16/18 04:49 98.2 Orders Orders Electrocardiogram (02/16/18 05:03) Complete Blood Count With Diff (02/16/18 05:03) Comprehensive Metabolic Panel (02/16/18 05:03) Creatine Kinase (Cpk) (02/16/18 05:03) Ckmb (Isoenzyme) Profile (02/16/18 05:03) Troponin I (02/16/18 05:03) B-Type Natriuretic Peptide (02/16/18 05:03) Prothrombin Time / Inr (Pt) (02/16/18 05:03) Act Partial Throm Time (Ptt) (02/16/18 05:03) Lipase (02/16/18 05:03) Urinalysis - C+S If Indicated (02/16/18 05:03) Westergren Sedimentation Rate (02/16/18 05:03) Magnesium (Mg) (02/16/18 05:03) Chest, Single Ap (02/16/18 05:03) Iv Access Insert/Monitor (02/16/18 05:03) Ecg Monitoring (02/16/18 05:03) Oximetry (02/16/18 05:03) Aspirin Chew (Aspirin Chew) (02/16/18 05:15) Nitroglycerin 2% Oint (Nitroglycerin 2% (02/16/18 05:15) D-Dimer (02/16/18 05:19) CKMB (02/16/18 05:11) CKMB% (02/16/18 05:11) Ct Pulmonary Angiogram (02/16/18 06:44) Iohexol 350 Inj (Omnipaque 350 Inj) (02/16/18 08:11) Aspirin Chew (Aspirin Chew) (02/17/18 09:00) Atorvastatin (Lipitor) (02/17/18 09:00) Clopidogrel (Plavix) (02/17/18 09:00) Isosorbide Mononitrate (Imdur) (02/17/18 07:00) Trazodone (Desyrel) (02/16/18 21:00) Consult Cardiology (02/16/18 ) Vital Signs (Adult) Q4H (02/16/18 09:41) Interior Decorator Painting / Telemetry .CONTINUOUS (02/16/18 09:41) Intake + Output MULUGETA.QSHIFT (02/16/18 09:41) Diet Npo (02/16/18 Breakfast) Sodium Chlor 0.45% 1000 Ml Inj (1/2 Ns 1 (02/16/18 10:00) Sodium Chloride 0.9% Flush (Ns Flush) (02/16/18 09:45) Sodium Chloride 0.9% Flush (Ns Flush) (02/16/18 21:00) Comprehensive Metabolic Panel (02/17/18 06:00) Complete Blood Count With Diff (02/17/18 06:00) Troponin I (02/16/18 09:41) Troponin I (02/16/18 15:41) Electrocardiogram (02/16/18 09:41) Electrocardiogram (02/16/18 15:41) Case Management Consult (02/16/18 09:41) Scd Bilateral/Knee High MULUGETA.BID (02/16/18 09:41) Naloxone Inj (Narcan Inj) (02/16/18 09:45) Magnesium Hydroxide Liq (Milk Of Magnesi (02/16/18 09:45) Sennosides (Senokot) (02/16/18 09:45) Bisacodyl Supp (Dulcolax Supp) (02/16/18 09:45) Lactulose Liq (Lactulose Liq) (02/16/18 09:45) Place In Observation (02/16/18 ) Admit Order (Ed Use Only) (02/16/18 09:45) Labs Laboratory Tests Test 02/16/18 05:11 02/16/18 05:25 White Blood Count 7.4 TH/MM3 Red Blood Count 4.51 MIL/MM3 Hemoglobin 13.2 GM/DL Hematocrit 38.7 % Mean Corpuscular Volume 85.7 FL Mean Corpuscular Hemoglobin 29.3 PG Mean Corpuscular Hemoglobin Concent 34.2 % Red Cell Distribution Width 13.8 % Platelet Count 196 TH/MM3 Mean Platelet Volume 7.1 FL Neutrophils (%) (Auto) 78.3 % Lymphocytes (%) (Auto) 13.0 % Monocytes (%) (Auto) 7.7 % Eosinophils (%) (Auto) 0.5 % Basophils (%) (Auto) 0.5 % Neutrophils # (Auto) 5.8 TH/MM3 Lymphocytes # (Auto) 1.0 TH/MM3 Monocytes # (Auto) 0.6 TH/MM3 Eosinophils # (Auto) 0.0 TH/MM3 Basophils # (Auto) 0.0 TH/MM3 CBC Comment DIFF FINAL Differential Comment Prothrombin Time 10.8 SEC Prothromb Time International Ratio 1.1 RATIO Activated Partial Thromboplast Time 23.4 SEC Blood Urea Nitrogen 17 MG/DL Creatinine 1.06 MG/DL Random Glucose 108 MG/DL Total Protein 7.2 GM/DL Albumin 4.0 GM/DL Calcium Level 8.5 MG/DL Magnesium Level 2.2 MG/DL Alkaline Phosphatase 46 U/L Aspartate Amino Transf (AST/SGOT) 25 U/L Alanine Aminotransferase (ALT/SGPT) 34 U/L Total Bilirubin 0.7 MG/DL Sodium Level 138 MEQ/L Potassium Level 4.2 MEQ/L Chloride Level 105 MEQ/L Carbon Dioxide Level 23.4 MEQ/L Anion Gap 10 MEQ/L Estimat Glomerular Filtration Rate 69 ML/MIN Total Creatine Kinase 135 U/L Creatine Kinase MB 1.2 NG/ML Troponin I 0.03 NG/ML B-Type Natriuretic Peptide 122 PG/ML Lipase 87 U/L Erythrocyte Sedimentation Rate 5 mm/hr D-Dimer Quantitative (PE/DVT) 0.64 MG/L [facility] Supervised Visit with GURPREET: No Interpretation(s) CBC & BMP Diagram 02/16/18 05:11 Total Protein 7.2, Albumin 4.0, Calcium Level 8.5, Magnesium Level 2.2, Alkaline Phosphatase 46, Aspartate Amino Transf (AST/SGOT) 25, Alanine Aminotransferase (ALT/SGPT) 34, Total Bilirubin 0.7 Last [address] Angiography 02/16/18 0644 Signed Impressions: CONCLUSION: Slight bibasilar atelectasis and/or infiltrate worse on the right, otherwise unremarkable. Chest X-Ray 02/16/18 0503 Signed Impressions: CONCLUSION: Patchy right lung base atelectasis versus consolidation. Narrative Course labs wnl, ct without pe, updated patient and and agrees to observation for further care Physician Communication Physician Communication dr galvez agrees to admit Diagnosis Primary Impression: Chest pain Qualified Codes: R07.9 - Chest pain, unspecified Additional Impression: History of coronary artery disease Admitting Information Admitting Physician Requests: Observation Marisa Crouch MD Feb 16, 2018 08:08
[2018-02-16] MEDS ORDERED: IOHEXOL 350 MG/ML 10 ML VIAL (for RAD DIAG) IVCONTRAST ONE (08:11)
--- NOTE | 2018-02-16 09:01 | EKG ---
Date Performed: 02/16/2018 Time Performed: 03:57:46 PTAGE: 72 years EKG: Sinus rhythm NONSPECIFIC ST & T-WAVE ABNORMALITY BORDERLINE ECG PREVIOUS TRACING : 02/09/2018 23.02 DOCTOR: Angel Luis Diaz Interpretating Date/Time 02/16/2018 09:00:47
[2018-02-16] MEDS ORDERED: LACTULOSE SYRUP 20 GM/30 ML CUP PO PRN (09:45)
[2018-02-16] MEDS ORDERED: SENNOSIDES 8.6 MG TAB PO PRN (09:45)
[2018-02-16] MEDS ORDERED: BISACODYL 10 MG SUPP RECTAL PRN (09:45)
[2018-02-16] MEDS ORDERED: NALOXONE HCL 0.4 MG/ML AMP IV PUSH PRN (09:45)
[2018-02-16] MEDS ORDERED: MAGNESIUM HYDROXIDE SUSP 30 ML CUP PO PRN (09:45)
[2018-02-16] MEDS ORDERED: SODIUM CHLORIDE 0.9% FLUSH 10 ML FLUSH IV FLUSH PRN (09:45)
[2018-02-16 10:51] LABS: BILIRUBIN, URINE NEG (NEG); BLOOD, URINE NEG (NEG); GLUCOSE,URINE NEG (NEG); KETONE, URINE NEG (NEG); NITRITE,URINE NEG (NEG); URINE COLOR YELLOW (YELLW/STRAW); URINE LEUKOCYTE ESTERASE NEG (NEG)
[2018-02-16] MEDS: SODIUM CHLOR 0.45% 1000 ML INJ 1,000 ML IV SCH (12:37)
[2018-02-16] MEDS ORDERED: ISOSORBIDE MONONITRATE 60 MG CR TAB (IMDUR) PO ONE (14:30)
[2018-02-16] MEDS ORDERED: CLOPIDOGREL 75 MG TAB PO ONE (14:30)
--- NOTE | 2018-02-16 15:38 | HHI.HP ---
[facility] Cynthia Gregg Admission Diagnosis chest pain Diagnoses: Travel History International Travel<30 Days: No Contact w/Intl Traveler <30 Da: No Traveled to Known Affected Are: No History of Present Illness 72-year-old male with a history of coronary artery disease, recent NSTEMI admitted on 02/03 with PCI to mid LAD, proximal RCA, however patient became agitated with anesthesia, and decided to hold off on further intervention.. Recently readmitted on 02/09 with severe right shoulder pain. Right shoulder x- ray negative for acute finding, pain thought to be musculoskeletal. Patient subsequently underwent right shoulder steroid injection on 02/14 at his primary care doctor's office with very temporary improvement. According to , patient has been sitting up at night secondary to his right shoulder pain. He denies any chest pain or shortness of breath. He is very shaky, says he is very anxious due to the pain. He denies any lightheadedness or dizziness. Denies fevers or chills. Denies nausea, vomiting, constipation. Patient is uncertain of the date, however says it is not normal for him to know the date. says that patient becomes confused with IV narcotics, Ativan. She does agree with low dose by mouth narcotics for his pain however. Review of Systems Except as stated in HPI: all other systems reviewed are Neg Past Family Social History Past Medical History History of DVT in 2013 status post anticoagulation Anxiety Depression History of pseudodementia PCI to mid LAD, first diagonal branch on 02/[address] red Past Surgical History Cardiac catheterization on 02/04. Inguinal hernia repair in 2017 Reported Medications Reported Meds & Active Scripts Active Tgt Aspirin (Aspirin) 81 Mg Chw 81 Mg PO DAILY Isosorbide Mononitrate ER (Isosorbide Mononitrate) 60 Mg Tab 60 Mg PO DAILY@07 Atorvastatin (Atorvastatin Calcium) 20 Mg Tab 20 Mg PO DAILY Plavix (Clopidogrel Bisulfate) 75 Mg Tab 75 Mg PO DAILY Reported Trazodone (Trazodone HCl) 50 Mg Tab 50 Mg PO HS Prozac (Fluoxetine HCl) 10 Mg Cap 10 Mg PO DAILY Allergies: Coded Allergies: hydromorphone (Verified Allergy, Severe, 02/16/18) lorazepam (Verified Allergy, Severe, 02/16/18) Family History Father with possible history of heart disease, alcoholism. Unknown maternal medical history. Social History Patient denies any history of alcohol, tobacco, illicit drug use. Patient lives with in [place]. Physical Exam Vital Signs Vital Signs Date Time Temp Pulse Resp B/P (MAP) Pulse Ox O2 Delivery O2 Flow Rate FiO2 02/16/18 12:16 72 02/16/18 11:33 97.4 57 18 166/81 (109) 99 02/16/18 11:06 70 18 168/85 (112) 98 02/16/18 09:03 68 18 165/84 (111) 100 Room Air 02/16/18 05:41 Room Air 02/16/18 04:49 98.2 64 16 177/84 (115) 99 Physical Exam GENERAL: This is thin patient who appears in pain. SKIN: No rashes, ecchymoses or lesions. Cool and dry. HEAD: Atraumatic. Normocephalic. No temporal or scalp tenderness. EYES: Pupils equal round and reactive. Extraocular motions intact. No scleral icterus. No injection or drainage. ENT: Nose without bleeding, purulent drainage or septal hematoma. Throat without erythema, tonsillar hypertrophy or exudate. Uvula midline. Airway patent. NECK: Trachea midline. No JVD or lymphadenopathy. Supple, nontender, no meningeal signs. CARDIOVASCULAR: Regular rate and rhythm without murmurs, gallops, or rubs. RESPIRATORY: Clear to auscultation. Breath sounds equal bilaterally. No wheezes , rales, or rhonchi. GASTROINTESTINAL: Abdomen soft, non-tender, nondistended. No hepato-splenomegaly , or palpable masses. No guarding. MUSCULOSKELETAL: Extremities without clubbing, cyanosis. Trace edema no joint tenderness, effusion. No calf tenderness. Negative Homans sign bilaterally. NEUROLOGICAL: Awake, disoriented. Cranial nerves II through XII intact. Bilateral tremors. Five out of 5 muscle strength in all muscle groups. Normal speech. Laboratory Laboratory Tests Test 02/16/18 05:11 02/16/18 05:25 02/16/18 10:15 02/16/18 11:05 White Blood Count 7.4 Red Blood Count 4.51 Hemoglobin 13.2 Hematocrit 38.7 Mean Corpuscular Volume 85.7 Mean Corpuscular Hemoglobin 29.3 Mean Corpuscular Hemoglobin Concent 34.2 Red Cell Distribution Width 13.8 Platelet Count 196 Mean Platelet Volume 7.1 Neutrophils (%) (Auto) 78.3 Lymphocytes (%) (Auto) 13.0 Monocytes (%) (Auto) 7.7 Eosinophils (%) (Auto) 0.5 Basophils (%) (Auto) 0.5 Neutrophils # (Auto) 5.8 Lymphocytes # (Auto) 1.0 Monocytes # (Auto) 0.6 Eosinophils # (Auto) 0.0 Basophils # (Auto) 0.0 CBC Comment DIFF FINAL Differential Comment Prothrombin Time 10.8 Prothromb Time International Ratio 1.1 Activated Partial Thromboplast Time 23.4 Blood Urea Nitrogen 17 Creatinine 1.06 Random Glucose 108 Total Protein 7.2 Albumin 4.0 Calcium Level 8.5 Magnesium Level 2.2 Alkaline Phosphatase 46 Aspartate Amino Transf (AST/SGOT) 25 Alanine Aminotransferase (ALT/SGPT) 34 Total Bilirubin 0.7 Sodium Level 138 Potassium Level 4.2 Chloride Level 105 Carbon Dioxide Level 23.4 Anion Gap 10 Estimat Glomerular Filtration Rate 69 Total Creatine Kinase 135 Creatine Kinase MB 1.2 Troponin I 0.03 0.04 B-Type Natriuretic Peptide 122 Lipase 87 Erythrocyte Sedimentation Rate 5 D-Dimer Quantitative (PE/DVT) 0.64 Urine Color YELLOW Urine Turbidity CLEAR Urine pH 6.0 Urine Specific [place] 1.044 Urine Protein NEG Urine Glucose (UA) NEG Urine Ketones NEG Urine Occult Blood NEG Urine Nitrite NEG Urine Bilirubin NEG Urine Urobilinogen LESS THAN 2.0 Urine Leukocyte Esterase NEG Urine RBC LESS THAN 1 Urine WBC LESS THAN 1 Microscopic Urinalysis Comment CULT NOT INDICATED Result Diagram: 02/16/18 0511 02/16/18 [address] Angiography 02/16/18 0685 Signed Impressions: CONCLUSION: Slight bibasilar atelectasis and/or infiltrate worse on the right, otherwise unremarkable. Chest X-Ray 02/16/18 1740 Signed Impressions: CONCLUSION: Patchy right lung base atelectasis versus consolidation. Caprini VTE Risk Assessment Caprini VTE Risk Assessment: Mod/High Risk (score >= 2) Caprini Risk Assessment Model Point Value = 1 Point Value = 2 Point Value = 3 Point Value = 5 Age 41-60 Minor surgery BMI > 25 kg/m2 Swollen legs Varicose veins or History of unexplained or recurrent spontaneous Oral contraceptives or hormone replacement Sepsis (< 1 month) Serious lung disease, including pneumonia (< 1 month) Abnormal pulmonary function Acute myocardial infarction Congestive heart failure (< 1 month) History of inflammatory bowel disease Medical patient at bed rest Age 61-74 Arthroscopic surgery Major open surgery (> 45 min) Laparoscopic surgery (> 45 min) Malignancy Confined to bed (> 72 hours) Immobilizing plaster cast Central venous access Age >= 75 History of VTE Family history of VTE Factor V Leiden Prothrombin [id number] Lupus anticoagulant Anticardiolipin antibodies Elevated serum homocysteine Heparin-induced thrombocytopenia Other congenital or acquired thrombophilia Stroke (< 1 month) Elective arthroplasty Hip, pelvis, or leg fracture Acute spinal cord injury (< 1 month) Prophylaxis Regimen Total Risk Factor Score Risk Level Prophylaxis Regimen 0-1 Low Early ambulation 2 Moderate Order ONE of the following: *Sequential Compression Device (SCD) *Heparin 5000 units SQ BID 3-4 Higher Order ONE of the following medications: *Heparin 5000 units SQ TID *Enoxaparin/Lovenox 40 mg SQ daily (WT < 150 kg, CrCl > 30 mL/min) *Enoxaparin/Lovenox 30 mg SQ daily (WT < 150 kg, CrCl > 10-29 mL/min) *Enoxaparin/Lovenox 30 mg SQ BID (WT < 150 kg, CrCl > 30 mL/min) AND/OR *Sequential Compression Device (SCD) 5 or more Highest Order ONE of the following medications: *Heparin 5000 units SQ TID (Preferred with Epidurals) *Enoxaparin/Lovenox 40 mg SQ daily (WT < 150 kg, CrCl > 30 mL/min) *Enoxaparin/Lovenox 30 mg SQ daily (WT < 150 kg, CrCl > 10-29 mL/min) *Enoxaparin/Lovenox 30 mg SQ BID (WT < 150 kg, CrCl > 30 mL/min) AND *Sequential Compression Device (SCD) Assessment and Plan Assessment and Plan //Right shoulder pain. -Shoulder x-ray from previous admission negative for acute findings. = Recent steroid injection to right shoulder on 02/14 by PCP with only temporary improvement. = CT pulmonary angiogram negative for embolism. = We will proceed with cervical spine imaging. //Atypical chest pain. //Recent PCI. = CT pulmonary angiogram negative for acute findings. Mild atelectasis. Signs of pneumonia. = As per discussion with ER physician, will consult cardiology. And EKGs and troponins appreciate assistance. //Anxiety. //Depression = Likely worsened by loss of sleep. We will hold off on antidepressants currently. Will consult psychiatry. //Moderate malnutrition. We will add Ensure. //DVT prophylaxis. SCDs. Discussed Condition With Patient, nurse, ED physician. Alek Olivier MD Feb 16, 2018 15:38
[2018-02-16] MEDS ORDERED: ACETAMINOPHEN/HYDROcodone 325 MG/5 MG TAB PO ONE (16:00)
[2018-02-16] MEDS ORDERED: hydrOXYzine HCL 50 MG TAB PO ONE (17:45)
--- NOTE | 2018-02-16 17:59 | MB ---
cc: Angel Luis Diaz MD DATE: 02/16/2018 INDICATION: Chest pain. HISTORY OF PRESENT ILLNESS: This is a 72-year-old gentleman who has history of coronary artery disease and non-ST elevation myocardial infarction, admitted originally back on 02/03/2018, at which time, he underwent percutaneous coronary intervention to the mid left anterior descending coronary artery with a bifurcation stent to the diagonal branch. He also had right coronary artery disease, but we were planning to potentially stage it, depending on how well he would tolerate anesthesia. He has had some intermittent chest pain symptoms and addition of right shoulder and neck pain. He has baseline dementia and is quite anxious. His troponin is negative. Electrocardiogram is unremarkable. We are consulted for further recommendations. PAST MEDICAL HISTORY: He has a history of DVT. He has a history of anxiety, depression, dementia, coronary artery disease, PCI to the diagonal branch and LAD. ALLERGIES: HE HAS ALLERGIES TO HYDROMORPHONE AND LORAZEPAM. ACTIVE MEDICATIONS: Aspirin, isosorbide, atorvastatin and Plavix. FAMILY HISTORY: Denies any family history of early coronary artery disease or sudden cardiac . SOCIAL HISTORY: Denies any alcohol, tobacco or drug use. REVIEW OF SYSTEMS: A 12-point review of systems was performed, negative unless otherwise noted on history of present illness. PHYSICAL EXAMINATION: VITAL SIGNS: Temperature 97, pulse 71, blood pressure 153/85 mmHg. GENERAL: Alert and oriented, in no acute distress. HEENT: Shows pupils intact to light and accommodation. Extraocular movements are intact. NECK: No elevation of jugular venous distention. No thyromegaly. No lymphadenopathy, no carotid bruits. LUNGS: Clear to auscultation bilaterally. CARDIOVASCULAR: Regular rate and rhythm, without murmurs, rubs or gallops. ABDOMEN: Nontender, nondistended, good bowel sounds. No hepatosplenomegaly. EXTREMITIES: Show no clubbing, cyanosis or edema. Good peripheral pulses. NEUROLOGIC: Cranial nerves intact. Motor, sensory grossly intact. LABORATORY DATA: WBC is 7.4, hemoglobin 13.2, platelet count is 196. INR is 1.1. Sodium 138, potassium 4.2, BUN 17, creatinine is 1.06. Troponin 0.04. ASSESSMENT: 1. Chest pain. 2. History of coronary artery disease, prior percutaneous intervention. PLAN: His symptomatic features are somewhat atypical, although this is his third presentation back to the emergency department with recurrent symptoms. His troponin is negative and electrocardiogram is unremarkable. Dr. Olivier is going to investigate further his right shoulder and neck area for musculoskeletal etiology. I did discuss with his about consideration for staged intervention of the right coronary artery to eliminate that as a potential consideration for his recurrence in symptoms. Of course, given his difficulty with anesthesia last time, we would really minimize any administration of sedatives during this procedure. We will tentatively make him n.p.o. If his workup is negative for any other etiology, we will plan to attempt a percutaneous intervention of right coronary artery to eliminate that as a possibility and we can move forward looking for noncardiac causes. MD FAMLIIA Dailey/MC/ , 04:51 PM , 05:22 PM
--- NOTE | 2018-02-16 19:07 | RADRPT ---
EXAM DATE: 02/16/2018 6:40 PM EDT AGE/SEX: 72 years / Male INDICATIONS: Neck pain. CLINICAL DATA: This is the patient's initial encounter. Patient reports that signs and symptoms have been present for 1 day and indicates a pain score of 7/10. MEDICAL/SURGICAL HISTORY: Cardiovascular disease. Deep venous thrombosis. None. RADIATION DOSE: 19.39 CTDI (mGy) COMPARISON: No prior exams available for comparison. TECHNIQUE: Contiguous axial images were obtained using helical multirow detector technique. The vol umetric data was post-processed with multiplanar reconstruction in oblique axial, sagittal, and coron al planes. Using automated exposure control and adjustment of the mA and/or kV according to patient s ize, radiation dose was kept as low as reasonably achievable to obtain optimal diagnostic quality penelope ges. FINDINGS: Cervical spine alignment is satisfactory. There is no evidence of fracture or destructive change. The re are degenerative changes with disc space narrowing most severely present at C5-6. Significant post erior facet arthropathy is present at multiple levels, generally worse on the left than the right. Th ere is no significant bony canal compromise. There is no evidence of paraspinal mass or hematoma. CONCLUSION: 1. No acute process in the cervical spine Electronically signed by: Lobo Rhoades MD 02/16/2018 7:05 PM EDT
[2018-02-16] MEDS: traZODone HCL 50 MG TAB PO SCH (21:32)
[2018-02-16] MEDS: SODIUM CHLORIDE 0.9% FLUSH 10 ML FLUSH IV FLUSH SCH (21:32)
[2018-02-16] MEDS ORDERED: HALOPERIDOL LACTATE 5 MG/ML AMP IM ONE (22:45)
[2018-02-17] VITALS (9 sets, daily range): BP systolic 128–143; BP diastolic 70–98; PULSE 63–99; RESP 17–20; TEMP 97.8–98.7; O2SAT 91–97
[2018-02-17] MEDS ORDERED: hydrOXYzine HCL 25 MG TAB PO PRN
[2018-02-17] MEDS: SODIUM CHLOR 0.45% 1000 ML INJ 1,000 ML IV SCH ×2 (02:40→16:48)
[2018-02-17] MEDS: ISOSORBIDE MONONITRATE 60 MG CR TAB (IMDUR) PO SCH (06:32)
--- NOTE | 2018-02-17 08:28 | PD.CARD.PN ---
Subjective Subjective Remarks Patient was agitated overnight and required Haldol and is currently in 2 point restraints. He is a bit somnolent, but he denies any pain. (Johnny Vargas) Objective Medications Current Medications Medications (Trade) Dose Ordered Sig/Leydi Route Start Time Stop Time Status Last Admin (Aspirin Chew) 81 mg DAILY PO 02/17/18 09:00 (Lipitor) 20 mg DAILY PO 02/17/18 09:00 (Plavix) 75 mg DAILY PO 02/17/18 09:00 (Imdur) 60 mg DAILY@07 PO 02/17/18 07:00 02/17/18 06:32 (Desyrel) 50 mg HS PO 02/16/18 21:00 02/16/18 21:32 Sodium Chloride 1,000 ml @ 60 mls/hr [id number] IV 02/16/18 10:00 02/17/18 02:40 (NS Flush) 2 ml UNSCH PRN IV FLUSH 02/16/18 09:45 (NS Flush) 2 ml BID IV FLUSH 02/16/18 21:00 02/16/18 21:32 (Narcan Inj) 0.4 mg UNSCH PRN IV PUSH 02/16/18 09:45 (Milk Of Magnesia Liq) 30 ml Q12H PRN PO 02/16/18 09:45 (Senokot) 17.2 mg Q12H PRN PO 02/16/18 09:45 (Dulcolax Supp) 10 mg DAILY PRN RECTAL 02/16/18 09:45 (Lactulose Liq) 30 ml DAILY PRN PO 02/16/18 09:45 (Atarax) 25 mg Q6H PRN PO 02/17/18 00:00 02/17/18 02:16 Vital Signs / I&O Vital Signs Date Time Temp Pulse Resp B/P (MAP) Pulse Ox O2 Delivery O2 Flow Rate FiO2 02/17/18 06:27 98.7 18 128/70 (89) 94 02/17/18 03:42 98.5 99 17 131/73 (92) 94 02/16/18 19:30 78 17 167/74 (105) 97 02/16/18 16:30 58 02/16/18 16:08 97.2 71 20 153/85 (107) 99 02/16/18 12:16 72 02/16/18 11:33 97.4 57 18 166/81 (109) 99 02/16/18 11:06 70 18 168/85 (112) 98 02/16/18 09:03 68 18 165/84 (111) 100 Room Air Physical Exam GENERAL: Well-developed well-nourished. In no acute distress. NECK: No carotid bruits. No JVD. CARDIOVASCULAR: Regular rate and rhythm. No murmur appreciated. RESPIRATORY: No accessory muscle use. Clear to auscultation. Breath sounds equal bilaterally. MUSCULOSKELETAL: No clubbing or cyanosis. No edema. NEUROLOGICAL: Somnolent, but agitated when awoken. Normal speech. Laboratory Laboratory Tests Test 02/16/18 10:15 02/16/18 11:05 02/16/18 15:48 Urine Color YELLOW Urine Turbidity CLEAR Urine pH 6.0 Urine Specific [place] 1.044 Urine Protein NEG mg/dL Urine Glucose (UA) NEG mg/dL Urine Ketones NEG mg/dL Urine Occult Blood NEG Urine Nitrite NEG Urine Bilirubin NEG Urine Urobilinogen LESS THAN 2.0 MG/DL Urine Leukocyte Esterase NEG Urine RBC LESS THAN 1 /hpf Urine WBC LESS THAN 1 /hpf Microscopic Urinalysis Comment CULT NOT INDICATED Troponin I 0.04 NG/ML 0.04 NG/ML Vitamin B12 Level 1777 PG/ML Imaging Last Impressions CT Angiography 02/16/18 0644 Signed Impressions: CONCLUSION: Slight bibasilar atelectasis and/or infiltrate worse on the right, otherwise unremarkable. Chest X-Ray 02/16/18 0503 Signed Impressions: CONCLUSION: Patchy right lung base atelectasis versus consolidation. Cervical Spine CT 02/16/18 0000 Signed Impressions: CONCLUSION: 1. No acute process in the cervical spine (Johnny Vargas) Assessment and Plan Assessment and Plan 72-year-old male with a recent history of NSTEMI 01/16/18 with PCI to LAD with bifurcation stent to diagonal branch; he also had RCA disease with original plans to stage it depending on how he would tolerate anesthesia as he had some agitation with anesthesia during the original PCI. Patient does have baseline dementia. He returns with atypical chest pain. Atypical chest pain: Troponins and EKG are unremarkable. Currently the patient is agitated and restrained, discussed with patient's , will hold off on [facility] for now will patient continues to undergo workup for noncardiac causes for pain. Continue aspirin, statin, Plavix, Imdur. Discussed Condition With Patient with and RN at bedside, Dr. Diaz (Johnny Vargas) Assessment and Plan atypical symptoms no objective ischemic findings not good cath candidate discussed with med mgt only continue current cardiac regimen sign off call with questions (Angel Luis Diaz MD) Johnny Vargas Feb 17, 2018 08:28 Angel Luis Diaz MD Feb 17, 2018 10:43
[2018-02-17] MEDS: SODIUM CHLORIDE 0.9% FLUSH 10 ML FLUSH IV FLUSH SCH ×2 (09:05→20:23)
[2018-02-17] MEDS: ASPIRIN 81 MG CHEW TAB PO SCH (09:06)
[2018-02-17] MEDS: ATORVASTATIN 20 MG TAB PO SCH (09:06)
[2018-02-17] MEDS: CLOPIDOGREL 75 MG TAB PO SCH (09:06)
[2018-02-17] MEDS ORDERED: QUEtiapine FUMARATE 25 MG TAB PO SCH (09:45)
--- NOTE | 2018-02-17 09:48 | HHI.PR ---
Subjective Remarks Patient rambling, difficult for him to coherently answer questions. Reports that he still has pain. Discussed with who reports that he ate dinner, however that Atarax and Haldol had little effect on his agitation. He says he has not slept in several days. Objective Vital Signs Date Time Temp Pulse Resp B/P (MAP) Pulse Ox O2 Delivery O2 Flow Rate FiO2 02/17/18 06:27 98.7 18 128/70 (89) 94 02/17/18 03:42 98.5 99 17 131/73 (92) 94 02/16/18 19:30 78 17 167/74 (105) 97 02/16/18 16:30 58 02/16/18 16:08 97.2 71 20 153/85 (107) 99 02/16/18 12:16 72 02/16/18 11:33 97.4 57 18 166/81 (109) 99 02/16/18 11:06 70 18 168/85 (112) 98 Result Diagram: 02/16/18 0502/16/18 0511 Objective Remarks GENERAL: Patient lying in bed. Appears confused. Disoriented, halting speech. Appears very anxious. SKIN: Warm and dry. HEAD: Normocephalic. EYES: No scleral icterus. No injection or drainage. NECK: Supple, trachea midline. No JVD. CARDIOVASCULAR: Regular rate and rhythm without murmurs, gallops, or rubs. RESPIRATORY: Breath sounds equal bilaterally. No accessory muscle use. GASTROINTESTINAL: Abdomen soft, non-tender, nondistended. MUSCULOSKELETAL: No cyanosis, or edema. No shoulder pain with palpation no tenderness. BACK: Nontender without obvious deformity. No CVA tenderness. A/P Assessment and Plan //Right shoulder pain. -Shoulder x-ray from previous admission negative for acute findings. = Recent steroid injection to right shoulder on 02/14 by PCP with only temporary improvement. = CT pulmonary angiogram negative for embolism. = Cervical spine CT negative for acute process. Shoulder subsequently nontender. Suspect somatization. //Atypical chest pain. //Recent PCI. = CT pulmonary angiogram negative for acute findings. Mild atelectasis. Signs of pneumonia. = As per discussion with ER physician, will consult cardiology. And EKGs and troponins appreciate assistance. = Cardiology following. Appreciate assistance. Unlikely to be cardiac pain, however on treated stenosis still present. May require catheterization. //Anxiety. //Depression //Psychosis = Apparently Atarax and Haldol had little effect last night. Still quite agitated, confused . Says that he "sometimes gets like this." continue patient's trazodone. Start on Seroquel. = Follow-up psychiatry consult. Appreciate assistance. Check head CT. //Moderate malnutrition. We will add Ensure. //DVT prophylaxis. SCDs. Discharge Planning Pending cardiology clearance Alek Olivier MD Feb 17, 2018 09:48
[2018-02-17] MEDS ORDERED: OLANZapine IM 10 MG VIAL IM ONE (10:00)
[2018-02-17] MEDS: ACETAMINOPHEN 500 MG CPLT PO SCH ×4 (10:39→20:30)
--- NOTE | 2018-02-17 12:50 | RADRPT ---
EXAM DATE: 02/17/2018 12:41 PM EDT AGE/SEX: 72 years / Male INDICATIONS: Altered mental status. CLINICAL DATA: This is the patient's initial encounter. Patient reports that signs and symptoms have been present for 1 day and indicates a pain score of 0/10. MEDICAL/SURGICAL HISTORY: Cardiovascular disease. Deep venous thrombosis. None. RADIATION DOSE: 36.94 CTDI (mGy) COMPARISON: No prior exams available for comparison. TECHNIQUE: CT of the head without contrast. Using automated exposure control and adjustment of the mA and/or kV according to patient size, radiation dose was kept as low as reasonably achievable to ob tain optimal diagnostic quality images. FINDINGS: Cerebrum: Mild cerebral atrophy is noted. No evidence of midline shift, mass lesion, hemorrhage or a cute infarction. No extraaxial fluid collections are seen. Posterior Fossa: The cerebellum and brainstem are intact. The 4th ventricle is midline. The cerebe llopontine angle is unremarkable. Extracranial: The visualized portion of the orbits is intact. Skull: The calvaria is intact. No evidence of skull fracture. CONCLUSION: 1. Mild cerebral atrophy. 2. No acute infarct, acute hemorrhage, mass effect or extra-axial fluid collections. Electronically signed by: Sheng Nunn MD 02/17/2018 12:49 PM EDT
--- NOTE | 2018-02-17 14:35 | PD.PSY.CON ---
Provisional Diagnosis Admission Date Feb 16, 2018 at 09:47 [place] I. Delirium due to underlying medical conditions, unspecified psychosis, history of anxiety and depression [place] II. Deferred History of Present Illness Service Psychiatry Consult Requested By ER Reason for Consult Delirium Primary Care Physician Cynthia MORENO The patient is 72-year-old man, domiciled in [place] with his , retired, supported by Social Security, psychiatric history of anxiety, depression, no previous psychiatric hospitalizations, no previous suicidal attempts, he is in trazodone 50 mg, Prozac 10 mg, prescribed by PCP, with a history medical history of coronary artery disease, recent NSTEMI admitted on with PCI to mid LAD, proximal RCA, however patient became agitated with anesthesia, and decided to hold off on further intervention.. Recently readmitted on 02/09 with severe right shoulder pain. Right shoulder x-ray negative for acute finding, pain thought to be musculoskeletal. Patient subsequently underwent right shoulder steroid injection on 02/14 at his primary care doctor's office with very temporary improvement. According to , patient has been sitting up at night secondary to his right shoulder pain. The patient has become agitated, medicated with Haldol, Ativan and hydroxyzine IM, but the last hour the patient has been completely disoriented, no engaging in a conversation, and restless. He was starting Seroquel 25 mg twice daily p.o. consulted to psychiatry. On the psychiatric evaluation I find a patient that is known cooperative, not answering questions, alert, but disoriented, confused , not following verbal commands. His also clarifies that the patient has not slept for about 3 days now. She also clarifies that a patient had an episode similar after medicated the patient with Ativan during another hospitalization. But he does not have any psychiatric history, no prepsychotic hospitalizations, no previous episodes of delirium. She also confirms that the patient does not use any illegal drugs, no alcohol, not even prescribed medications such as benzodiazepines. Review of Systems ROS Limitations: Altered Mental Status, Uncooperative Past Family Social History Coded Allergies: hydromorphone (Verified Allergy, Severe, 02/16/18) lorazepam (Verified Allergy, Severe, 02/16/18) Active Scripts Aspirin (Tgt Aspirin) 81 Mg Chw, 81 MG PO DAILY for Blood Clot Prevention, #30 EA 1 Refill Prov:María Virk MD 02/05/18 Isosorbide Mononitrate ER (Isosorbide Mononitrate ER) 60 Mg Tab, 60 MG PO DAILY@ 07 for Chest Pain, #30 TAB 1 Refill Prov:María Virk MD 02/05/18 Atorvastatin (Atorvastatin) 20 Mg Tab, 20 MG PO DAILY for Cholesterol Management , #30 TAB 1 Refill Prov:María Virk MD 02/05/18 Clopidogrel (Plavix) 75 Mg Tab, 75 MG PO DAILY for Blood Clot Prevention, #30 TAB 1 Refill Prov:María Virk MD 02/05/18 Reported Medications Trazodone (Trazodone) 50 Mg Tab, 50 MG PO HS for Control Depression, #30 TAB 0 Refills 02/03/18 Fluoxetine (Prozac) 10 Mg Cap, 10 MG PO DAILY, #30 CAP 0 Refills 05/31/17 Current Medications Medications (Trade) Dose Ordered Sig/Leydi Route Start Time Stop Time Status Last Admin (Aspirin Chew) 81 mg DAILY PO 02/17/18 09:00 02/17/18 09:06 (Lipitor) 20 mg DAILY PO 02/17/18 09:00 02/17/18 09:06 (Plavix) 75 mg DAILY PO 02/17/18 09:00 02/17/18 09:06 (Imdur) 60 mg DAILY@07 PO 02/17/18 07:00 02/17/18 06:32 (Desyrel) 50 mg HS PO 02/16/18 21:00 02/16/18 21:32 Sodium Chloride 1,000 ml @ 60 mls/hr [id number] IV 02/16/18 10:00 02/17/18 02:40 (NS Flush) 2 ml UNSCH PRN IV FLUSH 02/16/18 09:45 (NS Flush) 2 ml BID IV FLUSH 02/16/18 21:00 02/16/18 21:32 (Narcan Inj) 0.4 mg UNSCH PRN IV PUSH 02/16/18 09:45 (Milk Of Magnesia Liq) 30 ml Q12H PRN PO 02/16/18 09:45 (Senokot) 17.2 mg Q12H PRN PO 02/16/18 09:45 (Dulcolax Supp) 10 mg DAILY PRN RECTAL 02/16/18 09:45 (Lactulose Liq) 30 ml DAILY PRN PO 02/16/18 09:45 (Tylenol) 500 mg Q6H PO 02/17/18 10:00 02/17/18 10:39 Family Psych History No family psychiatric history Social History The patient was born and raised in [place], he lives in [place] with his , he has a 41 years old son, is retired. His highest level of education is a master degree. Patient's Strengths (min. 2) Family support, Physical Exam Patient is restrained in 4 points, but a little bit restless Vital Signs Vital Signs Date Time Temp Pulse Resp B/P (MAP) Pulse Ox O2 Delivery O2 Flow Rate FiO2 02/17/18 13:10 98.4 77 20 133/84 (100) 97 02/16/18 09:03 Room Air Lab Results Test 02/16/18 15:48 Troponin I 0.04 NG/ML Vitamin B12 Level 1777 PG/ML Mental Status Examination Appearance: Appropriate Consciousness: Obtunded Insight: Poor Judgment: Poor Mental Status Exam Remarks Limited due to altered mental status Assessment & Plan Problem List: (1) Delirium ICD Codes: R41.0 - Disorientation, unspecified Assessment & Plan: The patient presents with altered mental status, restless, but disoriented, unable to provide any meaningful information for the psychiatric assessment. No following verbal commands. Presentation seems to be consistent with delirium. Try to avoid delivery genic drugs as much as Benzos/anticholinergics/narcotics. Continue Seroquel 25 mg twice daily. Give olanzapine 10 mg IM now. Consult neurology and consider EEG to explore neurological causes of delirium.. Frequent reorientation, sensory stimulation, familiar faces around the bed, appropriate light in the room are general measures that usually help. I will follow-up Assessment & Plan Estimated LOS: Reinaldo Schmidt MD Feb 17, 2018 14:35
--- NOTE | 2018-02-17 15:54 | MB ---
cc: Tristan Esteban MD, PhD DATE: 02/17/2018 REASON FOR CONSULTATION: Tremors. HISTORY OF PRESENT ILLNESS: Mr. Cooper is a 72-year-old man with a history of coronary artery disease. He presents to the hospital with shoulder pain, neck pain, and chest pain. He has a history of recent myocardial infarction. In January underwent a percutaneous coronary intervention to the mid left anterior descending coronary artery. The patient has a baseline dementia. He also has tremors, and Neurology is consulted to evaluate the patient for tremors. He cannot give any accurate history in terms of how long he has had the tremors, however. MEDICATIONS: Current medications: Tylenol p.r.n., aspirin 81 mg daily, Lipitor 20 mg daily, Plavix 75 mg daily, Imdur 60 mg daily, Desyrel 50 mg at bedtime. PHYSICAL EXAMINATION: VITAL SIGNS: His blood pressure is 133/84, pulse 77, respiratory rate is 20, temperature 98 degrees. NEUROLOGIC: Higher cortical function: He is alert, disoriented x3. He has poor recent memory. Speech is very dysarthric and follows commands. Cranial nerves intact. Motor exam: There is no focal weakness. He exhibits basically normal strength in both upper and lower extremities. He does have sustention tremors in both upper extremities. Reflexes are symmetric. LABORATORY DATA: White count 7400, hemoglobin 13.2, hematocrit 38%, platelet count 196,000. Sedimentation rate is 5. His PT is 10.8, INR 1.1, APTT 23.4. D-dimer 0.64, sodium is 138, potassium 4.2, chloride 105, CO2 23.4, BUN of 17, creatinine 1.06, glucose 108, AST 25, ALT 34. B12 1777. IMPRESSION: Probable benign essential tremors. RECOMMENDATIONS: We will check a thyroid panel to be sure he does not have hyperthyroidism associated tremors. Tristan Esteban MD, PhD IRAIDA/TL , 03:34 PM , 03:51 PM
[2018-02-17 17:13] LABS: AUTOMATED NEUTROPHIL # 6.5 TH/MM3 (1.8-7.7); BASOPHIL % 0.3 % (0.0-2.0); EOSINOPHIL % 0.2 % (0.0-4.0); HEMATOCRIT 38.5 % (39.0-51.0); HEMOGLOBIN 13.3 GM/DL (13.0-17.0); LYMPHOCYTE # 0.8 TH/MM3 (1.0-4.8); MEAN CELL VOLUME 86.2 FL (80.0-100.0); MEAN CORPUSCULAR HEMOGLOBIN 29.8 PG (27.0-34.0); MEAN CORPUSCULAR HGB CONC 34.5 % (32.0-36.0); MONOCYTE # 0.7 TH/MM3 (0-0.9); NEUT % 80.5 % (16.0-70.0); PLATELET COUNT 181 TH/MM3 (150-450); RED BLOOD COUNT 4.47 MIL/MM3 (4.50-5.90); RED CELL DISTRIBUTION WIDTH 13.9 % (11.6-17.2)
[2018-02-17 17:30] LABS: ALBUMIN 3.9 GM/DL (3.4-5.0); AST (GOT) 28 U/L (15-37); BICARBONATE 24.9 MEQ/L (21.0-32.0); BLOOD UREA NITROGEN 14 MG/DL (7-18); CALCIUM 9.1 MG/DL (8.5-10.1); CHLORIDE 107 MEQ/L (98-107); CREATININE 0.86 MG/DL (0.60-1.30); GLOMERULAR FILTRATION RATE 88 ML/MIN (>89); GLUCOSE,RANDOM 102 MG/DL (74-106); SODIUM (NA) 142 MEQ/L (136-145)
[2018-02-17 17:31] LABS: ALT (GPT) 34 U/L (12-78)
[2018-02-17 17:34] LABS: ALKALINE PHOSPHATASE 47 U/L (45-117); TOTAL BILIRUBIN ADULT 0.9 MG/DL (0.2-1.0); TOTAL PROTEIN 6.8 GM/DL (6.4-8.2)
--- NOTE | 2018-02-17 18:32 | EKG ---
Date Performed: 02/16/2018 Time Performed: 18:55:05 PTAGE: 72 years EKG: Sinus rhythm BORDERLINE RIGHT AXIS DEVIATION MODERATE INTRAVENTRICULAR CONDUCTION DELAY NONSPECIFIC T-WAVE ABNORM ALITY BORDERLINE ECG PREVIOUS TRACING : 02/16/2018 03.57 Since the previous tracing, no significant change noted DOCTOR: Bel Dudley Interpretating Date/Time 02/17/2018 18:30:20
[2018-02-17] MEDS: traZODone HCL 50 MG TAB PO SCH ×2 (20:23→20:30)
[2018-02-18] VITALS (9 sets, daily range): BP systolic 127–167; BP diastolic 59–79; PULSE 57–107; RESP 16–20; TEMP 96.5–98.8; O2SAT 95–98
[2018-02-18] MEDS: ACETAMINOPHEN 500 MG CPLT PO SCH ×4 (03:46→21:46)
[2018-02-18] MEDS: ISOSORBIDE MONONITRATE 60 MG CR TAB (IMDUR) PO SCH (06:44)
[2018-02-18] MEDS: SODIUM CHLORIDE 0.9% FLUSH 10 ML FLUSH IV FLUSH SCH ×2 (07:43→21:00)
--- NOTE | 2018-02-18 08:51 | MG ---
cc: Yogesh Reyes MD EEG RECORD NUMBER: [id number] Periods of stage II sleep with spindles. 1-3 Hz delta activity. Limited driving with photic stimulation. INTERPRETATION: Appearance of mainly stage II sleep throughout the recording. Clinical correlation. Yogesh Reyes MD MG/DL , 08:44 AM , 08:50 AM
[2018-02-18] MEDS: CLOPIDOGREL 75 MG TAB PO SCH (09:21)
[2018-02-18] MEDS: ASPIRIN 81 MG CHEW TAB PO SCH (09:21)
[2018-02-18] MEDS: ATORVASTATIN 20 MG TAB PO SCH (09:21)
[2018-02-18] MEDS ORDERED: QUEtiapine FUMARATE 25 MG TAB PO ONE (10:45)
[2018-02-18] MEDS: SODIUM CHLOR 0.45% 1000 ML INJ 1,000 ML IV SCH (11:15)
--- NOTE | 2018-02-18 12:58 | HHI.PYPN ---
Subjective Remarks The patient was seen today for psychiatric reevaluation. Case was discussed with primary medical team. On my psychiatric evaluation the patient is seems to be much better today, more alert, and a good spirit. He reports that he feels okay, reports good mood, still confused at times, but redirectable. He is fully oriented, he knows he is in the hospital, is 2018. He denies suicidal and homicidal ideation, he denies visual and auditory hallucinations. He mostly talk with eyes closed, but he was able to open it when I asked him. Mental Status Examination Appearance: Appropriate Consciousness: Alert Orientation: Person, Place Motor Activity: Normal gait Speech: Unremarkable Language: Adequate Fund of Knowledge: Adequate Attention and Concentration: Adequate Memory: Impaired Mood: Appropriate Affect: Appropriate Thought Process & Associations: Intact Thought Content: Appropriate Hallucination Type: None Delusion Type: None Suicidal Ideation: No Suicidal Plan: No Suicidal Intention: No Homicidal Ideation: No Homicidal Plan: No Homicidal Intention: No Insight: Fair Judgment: Impulsive Results Labs Test 02/17/18 16:45 White Blood Count 8.0 TH/MM3 Red Blood Count 4.47 MIL/MM3 Hemoglobin 13.3 GM/DL Hematocrit 38.5 % Mean Corpuscular Volume 86.2 FL Mean Corpuscular Hemoglobin 29.8 PG Mean Corpuscular Hemoglobin Concent 34.5 % Red Cell Distribution Width 13.9 % Platelet Count 181 TH/MM3 Mean Platelet Volume 7.0 FL Neutrophils (%) (Auto) 80.5 % Lymphocytes (%) (Auto) 10.0 % Monocytes (%) (Auto) 9.0 % Eosinophils (%) (Auto) 0.2 % Basophils (%) (Auto) 0.3 % Neutrophils # (Auto) 6.5 TH/MM3 Lymphocytes # (Auto) 0.8 TH/MM3 Monocytes # (Auto) 0.7 TH/MM3 Eosinophils # (Auto) 0.0 TH/MM3 Basophils # (Auto) 0.0 TH/MM3 CBC Comment DIFF FINAL Differential Comment Blood Urea Nitrogen 14 MG/DL Creatinine 0.86 MG/DL Random Glucose 102 MG/DL Total Protein 6.8 GM/DL Albumin 3.9 GM/DL Calcium Level 9.1 MG/DL Alkaline Phosphatase 47 U/L Aspartate Amino Transf (AST/SGOT) 28 U/L Alanine Aminotransferase (ALT/SGPT) 34 U/L Total Bilirubin 0.9 MG/DL Sodium Level 142 MEQ/L Potassium Level 3.7 MEQ/L Chloride Level 107 MEQ/L Carbon Dioxide Level 24.9 MEQ/L Anion Gap 10 MEQ/L Estimat Glomerular Filtration Rate 88 ML/MIN Thyroid Stimulating Hormone 3rd Gen 5.110 uIU/ML Vitals/IOs Vital Signs Date Time Temp Pulse Resp B/P (MAP) Pulse Ox O2 Delivery O2 Flow Rate FiO2 02/18/18 08:00 96.5 57 20 158/77 (104) 97 02/16/18 09:03 Room Air Intake and Output 02/18/18 02/18/18 02/19/18 08:00 16:00 00:00 Intake Total 1000 ml Balance 1000 ml Assessment & Plan Problem List: (1) Delirium ICD Codes: R41.0 - Disorientation, unspecified Assessment & Plan: Psychiatric evaluation today the patient is doing definitely much better, more alert, aware of the surroundings, partially oriented 3. Reports good mood, denies depressive symptoms, denies anxiety, denies suicidal ideation, denies homicidal ideation, denies visual and auditory hallucinations. Still some confusion remains. Continue Seroquel 25 mg twice daily. Patient does not meet criteria for involuntary psychiatric admission. I will restart his Prozac 20 mg today. Assessment & Plan Estimated LOS: days Justification for Cont. Inpt. No admission indicate Reinaldo Deutsch MD Feb 18, 2018 12:58
--- NOTE | 2018-02-18 13:32 | HHI.PR ---
Subjective Remarks Patient apparently slept well last night. Patient denies any pain.. Discussed with at bedside who says patient appears more calm. She expresses concerns with taking him home that he has not been out of bed in the past day. Objective Vital Signs Date Time Temp Pulse Resp B/P (MAP) Pulse Ox O2 Delivery O2 Flow Rate FiO2 02/18/18 13:05 98.0 68 16 135/70 (91) 96 02/18/18 08:00 96.5 57 20 158/77 (104) 97 02/18/18 03:35 97.9 67 20 133/65 (87) 95 02/18/18 00:09 98.8 107 20 167/73 (104) 96 02/17/18 20:58 97.8 76 20 143/87 (105) 97 02/17/18 16:07 98.2 76 18 137/91 (106) 91 02/17/18 15:32 91 I/O 02/17/18 02/17/18 02/17/18 02/18/18 02/18/18 02/18/18 07:00 15:00 23:00 07:00 15:00 23:00 Intake Total 1240 ml 1000 ml Output Total 600 ml Balance 640 ml 1000 ml Intake Oral 240 ml IV Total 1000 ml 1000 ml Output Urine Total 600 ml # Voids 3 2 # Bowel Movements 0 Result Diagram: 02/17/18 1645 02/17/18 1645 Objective Remarks GENERAL: Patient lying in bed. Sleeping, wakes up for exam. Appears calm. SKIN: Warm and dry. HEAD: Normocephalic. EYES: No scleral icterus. No injection or drainage. NECK: Supple, trachea midline. No JVD. CARDIOVASCULAR: Regular rate and rhythm without murmurs, gallops, or rubs. RESPIRATORY: Breath sounds equal bilaterally. No accessory muscle use. GASTROINTESTINAL: Abdomen soft, non-tender, nondistended. MUSCULOSKELETAL: No cyanosis, or edema. No shoulder pain with palpation no tenderness. BACK: Nontender without obvious deformity. No CVA tenderness. A/P Assessment and Plan //Right shoulder pain. -Shoulder x-ray from previous admission negative for acute findings. = Recent steroid injection to right shoulder on 02/14 by PCP with only temporary improvement. = CT pulmonary angiogram negative for embolism. = Cervical spine CT negative for acute process. Shoulder subsequently nontender. Suspect somatization. //Atypical chest pain. //Recent PCI. = CT pulmonary angiogram negative for acute findings. Mild atelectasis. Signs of pneumonia. = As per discussion with ER physician, will consult cardiology. And EKGs and troponins appreciate assistance. = Cardiology following. Appreciate assistance. Unlikely to be cardiac pain, however on treated stenosis still present. May require catheterization. =high risk for PCI. med mgt. cards has signed off. //Anxiety. //Depression //Psychosis = Apparently Atarax and Haldol had little effect last night. Still quite agitated, confused . Says that he "sometimes gets like this." continue patient's trazodone. Start on Seroquel. = Follow-up psychiatry consult. Appreciate assistance. Check head CT. =psychiatry says improved. cont seroquel. //Moderate malnutrition. cont Ensure. //DVT prophylaxis. SCDs. Discharge Planning PT eval pending. OOB. if cant take home may need SNF. Alek Olivier MD Feb 18, 2018 13:32
[2018-02-18] MEDS: FLUoxetine HCL 10 MG CAP PO SCH (13:34)
[2018-02-18] MEDS: QUEtiapine FUMARATE 25 MG TAB PO SCH (21:46)
[2018-02-18] MEDS: traZODone HCL 50 MG TAB PO SCH (21:46)
[2018-02-19] VITALS (9 sets, daily range): BP systolic 111–158; BP diastolic 60–76; PULSE 58–86; RESP 16–18; TEMP 97.4–98.4; O2SAT 94–100
[2018-02-19] MEDS: ACETAMINOPHEN 500 MG CPLT PO SCH ×4 (04:00→20:21)
[2018-02-19] MEDS: SODIUM CHLOR 0.45% 1000 ML INJ 1,000 ML IV SCH ×2 (04:40→20:23)
[2018-02-19] MEDS: ISOSORBIDE MONONITRATE 60 MG CR TAB (IMDUR) PO SCH (06:43)
[2018-02-19] MEDS: SODIUM CHLORIDE 0.9% FLUSH 10 ML FLUSH IV FLUSH SCH ×2 (08:09→20:21)
[2018-02-19] MEDS: CLOPIDOGREL 75 MG TAB PO SCH (09:20)
[2018-02-19] MEDS: FLUoxetine HCL 10 MG CAP PO SCH (09:21)
[2018-02-19] MEDS: ATORVASTATIN 20 MG TAB PO SCH (09:21)
[2018-02-19] MEDS: ASPIRIN 81 MG CHEW TAB PO SCH (09:21)
[2018-02-19] MEDS: QUEtiapine FUMARATE 25 MG TAB PO SCH ×2 (09:21→20:21)
--- NOTE | 2018-02-19 10:17 | HHI.PR ---
Subjective Remarks Follow-up for atypical chest pain, psychosis. Patient seen with his at bedside. The patient is awake, alert, oriented to person, place, year. reports the patient's mentation is much improved compared to the past few days, however she is concerned about taking him home without any help, and would prefer rehab placement if possible. The patient has no specific medical complaints including no chest pain, shortness of breath, or abdominal complaints. Objective Vitals Vital Signs Date Time Temp Pulse Resp B/P (MAP) Pulse Ox O2 Delivery O2 Flow Rate FiO2 02/19/18 08:00 98.3 72 17 131/70 (90) 95 02/19/18 03:24 97.7 58 16 158/76 (103) 98 02/18/18 23:43 97.7 60 16 160/79 (106) 97 02/18/18 19:31 97.7 60 16 138/73 (94) 97 02/18/18 17:38 97.5 73 18 127/59 (81) 98 02/18/18 15:31 87 02/18/18 14:09 71 02/18/18 13:05 98.0 68 16 135/70 (91) 96 I/O 02/18/18 02/18/18 02/18/18 02/19/18 02/19/18 02/19/18 07:00 15:00 23:00 07:00 15:00 23:00 Intake Total 1000 ml Output Total 1225 ml Balance -225 ml IV Total 1000 ml Output Urine Total 1225 ml Result Diagram: 02/17/18 1645 02/17/18 1645 Imaging Last Impressions Head CT 02/17/18 0000 Signed Impressions: CONCLUSION: 1. Mild cerebral atrophy. 2. No acute infarct, acute hemorrhage, mass effect or extra-axial fluid collec tions. CT Angiography 02/16/18 0644 Signed Impressions: CONCLUSION: Slight bibasilar atelectasis and/or infiltrate worse on the right, otherwise unremarkable. Chest X-Ray 02/16/18 0503 Signed Impressions: CONCLUSION: Patchy right lung base atelectasis versus consolidation. Cervical Spine CT 02/16/18 0000 Signed Impressions: CONCLUSION: 1. No acute process in the cervical spine Objective Remarks GENERAL: Well-nourished, well-developed elderly male patient in NAD. SKIN: Warm and dry. No rash. HEENT: Normocephalic. Atraumatic. Pupils equal and round. Mucous membranes pink and moist. CARDIOVASCULAR: Regular rate and rhythm. No murmur appreciated. RESPIRATORY: No accessory muscle use. Clear to auscultation. Breath sounds equal bilaterally. GASTROINTESTINAL: Abdomen soft, non-tender, nondistended. Normoactive bowel sounds x4. MUSCULOSKELETAL: No obvious deformities. Extremities without clubbing, cyanosis , or edema. NEUROLOGICAL: Awake and alert. No obvious cranial nerve deficits. Motor grossly within normal limits. Moving all extremities spontaneously. Normal speech. PSYCHIATRIC: Appropriate mood and affect; insight and judgment fair. Medications and IVs Current Medications Medications (Trade) Dose Ordered Sig/Leydi Route Start Time Stop Time Status Last Admin (Aspirin Chew) 81 mg DAILY PO 02/17/18 09:00 02/19/18 09:21 (Lipitor) 20 mg DAILY PO 02/17/18 09:00 02/19/18 09:21 (Plavix) 75 mg DAILY PO 02/17/18 09:00 02/19/18 09:20 (Imdur) 60 mg DAILY@07 PO 02/17/18 07:00 02/19/18 06:43 (Desyrel) 50 mg HS PO 02/16/18 21:00 02/18/18 21:46 Sodium Chloride 1,000 ml @ 60 mls/hr [id number] IV 02/16/18 10:00 02/18/18 11:15 (NS Flush) 2 ml UNSCH PRN IV FLUSH 02/16/18 09:45 (NS Flush) 2 ml BID IV FLUSH 02/16/18 21:00 02/16/18 21:32 (Narcan Inj) 0.4 mg UNSCH PRN IV PUSH 02/16/18 09:45 (Milk Of Magnesia Liq) 30 ml Q12H PRN PO 02/16/18 09:45 (Senokot) 17.2 mg Q12H PRN PO 02/16/18 09:45 (Dulcolax Supp) 10 mg DAILY PRN RECTAL 02/16/18 09:45 (Lactulose Liq) 30 ml DAILY PRN PO 02/16/18 09:45 (Tylenol) 500 mg Q6H PO 6/14/18 10:00 02/19/18 09:20 (SEROquel) 25 mg BID PO 02/18/18 21:00 02/19/18 09:21 (PROzac) 10 mg DAILY PO 02/18/18 13:00 02/19/18 09:21 A/P Assessment and Plan 72-year-old male with history of CAD, recent NSTEMI and PCI, anxiety, depression , pseudodementia, DVT 2014 s/p anticoagulation, presents with right shoulder pain Right shoulder pain. -Shoulder x-ray from previous admission negative for acute findings. -Recent steroid injection to right shoulder on 02/14 by PCP with only temporary improvement. -CT pulmonary angiogram negative for embolism. -Cervical spine CT negative for acute process. -Shoulder subsequently nontender. Suspect somatization. -No complaints of shoulder pain today Atypical chest pain with hx of CAD s/p Recent PCI. -CT pulmonary angiogram negative for acute findings. -ACS ruled out with negative serial cardiac enzymes and EKG without acute ischemic changes -Consulted cardiology, patient high risk for PCI, recommended medical management, cardiology signed off Acute Psychosis, Anxiety/Depression: -Patient intermittent agitated throughout admission -Head CT reviewed, no acute findings -Consulted psychiatry -Started on seroquel with good response -Mentation much improved Moderate protein calorie malnutrition: BMI 16 -continue Ensure with meals Generalized Weakness: suspect deconditioning secondary to recent hospital admission -Consult PT, recommending rehab -Case management to assist DVT prophylaxis. SCDs. Discharge Planning The patient is medically stable. Can d/c to rehab if arranged by case management. Paulina Plunkett PA-C Feb 19, 2018 10:17 am
[2018-02-19] MEDS: traZODone HCL 50 MG TAB PO SCH (20:21)
[2018-02-20 03:14] VITALS: BP 174/81; PULSE 63; RESP 16; TEMP 99; O2SAT 98
[2018-02-20] MEDS: ACETAMINOPHEN 500 MG CPLT PO SCH ×4 (03:53→20:38)
[2018-02-20] MEDS: ISOSORBIDE MONONITRATE 60 MG CR TAB (IMDUR) PO SCH (06:42)
[2018-02-20 08:00] VITALS: BP 139/76; PULSE 64; RESP 19; TEMP 98; O2SAT 96
[2018-02-20] MEDS: FLUoxetine HCL 10 MG CAP PO SCH (08:08)
[2018-02-20] MEDS: CLOPIDOGREL 75 MG TAB PO SCH (08:08)
[2018-02-20] MEDS: QUEtiapine FUMARATE 25 MG TAB PO SCH ×2 (08:08→20:38)
[2018-02-20] MEDS: SODIUM CHLORIDE 0.9% FLUSH 10 ML FLUSH IV FLUSH SCH ×2 (08:09→20:38)
[2018-02-20] MEDS: ASPIRIN 81 MG CHEW TAB PO SCH (08:09)
[2018-02-20] MEDS: ATORVASTATIN 20 MG TAB PO SCH (08:09)
--- NOTE | 2018-02-20 08:26 | HHI.PR ---
Subjective Remarks Follow-up for weakness, psychosis. Patient is awoken from his sleep. He is oriented to self and [place] only. He is drowsy on exam today. He denies any specific medical complaints. He agrees to rehab placement as recommended. No acute events overnight. Objective Vitals Vital Signs Date Time Temp Pulse Resp B/P (MAP) Pulse Ox O2 Delivery O2 Flow Rate FiO2 02/20/18 03:14 99.0 63 16 174/81 (112) 98 02/20/18 00:43 21 02/19/18 23:17 98.2 72 18 140/75 (96) 96 02/19/18 20:08 97.4 73 16 115/61 (79) 100 02/19/18 16:00 98.4 75 18 111/60 (77) 94 02/19/18 15:12 73 02/19/18 12:00 97.9 68 18 111/66 (81) 98 02/19/18 11:05 62 I/O 02/19/18 02/19/18 02/19/18 02/20/18 02/20/18 02/20/18 07:00 15:00 23:00 07:00 15:00 23:00 Intake Total 1320 ml Output Total 900 ml Balance 420 ml Intake Oral 1320 ml Output Urine Total 900 ml # Bowel Movements 2 Result Diagram: 02/17/18 1645 02/17/18 1645 Imaging Last Impressions Head CT 02/17/18 0000 Signed Impressions: CONCLUSION: 1. Mild cerebral atrophy. 2. No acute infarct, acute hemorrhage, mass effect or extra-axial fluid collec tions. CT Angiography 02/16/18 0644 Signed Impressions: CONCLUSION: Slight bibasilar atelectasis and/or infiltrate worse on the right, otherwise unremarkable. Chest X-Ray 02/16/18 0503 Signed Impressions: CONCLUSION: Patchy right lung base atelectasis versus consolidation. Cervical Spine CT 02/16/18 0000 Signed Impressions: CONCLUSION: 1. No acute process in the cervical spine Objective Remarks GENERAL: Well-nourished, well-developed elderly male patient in [facility]. SKIN: Warm and dry. No rash. HEENT: Normocephalic. Atraumatic. Pupils equal and round. Mucous membranes pink and moist. CARDIOVASCULAR: Regular rate and rhythm. No murmur appreciated. RESPIRATORY: No accessory muscle use. Clear to auscultation. Breath sounds equal bilaterally. GASTROINTESTINAL: Abdomen soft, non-tender, nondistended. Normoactive bowel sounds x4. MUSCULOSKELETAL: No obvious deformities. Extremities without clubbing, cyanosis , or edema. NEUROLOGICAL: Awake and alert. No obvious cranial nerve deficits. Motor grossly within normal limits. Moving all extremities spontaneously, with generalized weakness. Normal speech. PSYCHIATRIC: Appropriate mood and affect; insight and judgment limited. Medications and IVs Current Medications Medications (Trade) Dose Ordered Sig/Leydi Route Start Time Stop Time Status Last Admin (Aspirin Chew) 81 mg DAILY PO 02/17/18 09:00 02/20/18 08:09 (Lipitor) 20 mg DAILY PO 02/17/18 09:00 02/20/18 08:09 (Plavix) 75 mg DAILY PO 02/17/18 09:00 02/20/18 08:08 (Imdur) 60 mg DAILY@07 PO 02/17/18 07:00 02/20/18 06:42 (Desyrel) 50 mg HS PO 02/16/18 21:00 02/19/18 20:21 Sodium Chloride 1,000 ml @ 60 mls/hr [id number] IV 02/16/18 10:00 02/19/18 20:23 (NS Flush) 2 ml UNSCH PRN IV FLUSH 02/16/18 09:45 (NS Flush) 2 ml BID IV FLUSH 02/16/18 21:00 02/20/18 08:09 (Narcan Inj) 0.4 mg UNSCH PRN IV PUSH 02/16/18 09:45 (Milk Of Magnesia Liq) 30 ml Q12H PRN PO 02/16/18 09:45 (Senokot) 17.2 mg Q12H PRN PO 02/16/18 09:45 (Dulcolax Supp) 10 mg DAILY PRN RECTAL 02/16/18 09:45 (Lactulose Liq) 30 ml DAILY PRN PO 02/16/18 09:45 (Tylenol) 500 mg Q6H PO 02/17/18 10:00 02/20/18 08:09 (SEROquel) 25 mg BID PO 02/18/18 21:00 02/20/18 08:08 (PROzac) 10 mg DAILY PO 02/18/18 13:00 02/20/18 08:08 A/P Assessment and Plan 72-year-old male with history of CAD, recent NSTEMI and PCI, anxiety, depression , pseudodementia, DVT 2014 s/p anticoagulation, presents with right shoulder pain Right shoulder pain. -Shoulder x-ray from previous admission negative for acute findings. -Recent steroid injection to right shoulder on 02/14 by PCP with only temporary improvement. -CT pulmonary angiogram negative for embolism. -Cervical spine CT negative for acute process. -Shoulder subsequently nontender. Suspect somatization. -No further complaints of shoulder pain Atypical chest pain with hx of CAD s/p Recent PCI. -CT pulmonary angiogram negative for acute findings. -ACS ruled out with negative serial cardiac enzymes and EKG without acute ischemic changes -Consulted cardiology, patient high risk for PCI, recommended medical management, cardiology signed off Acute Psychosis, Anxiety/Depression: -Patient intermittent agitated throughout admission -Head CT reviewed, no acute findings -Consulted psychiatry -Started on seroquel with good response -Mentation much improved Moderate protein calorie malnutrition: BMI 16 -continue Ensure with meals Generalized Weakness: suspect deconditioning secondary to recent hospital admission -Consult PT, recommending rehab -Case management to assist DVT prophylaxis. SCDs. Discharge Planning The patient is medically stable. Can d/c to rehab if arranged by case management. The patient's does not feel comfortable caring for him at home. 1400 hrs.: Had a long discussion with the patient's at bedside and the patient sitting upright in bedside chair. Rehab has been unable to be arranged due to insurance barriers and observation status. The patient's agrees to take the patient home tomorrow if home health care can be arranged and if the patient is steady on his feet with physical therapy tomorrow. She does believe the patient's mentation is improving and he is getting stronger. Strongly encourage the to start looking into petroleum terminal plant operator placement or in-home caregivers to assist her. The reports she has a walker at home. Will plan for discharge tomorrow. Discussed with , RN, case management. I spent 35 minutes [id number] with the patient or on the hernández discussing the patient's disposition, prognosis, and plan of care with his caregivers. Over half the time spent was devoted to counseling the patient regarding placement in coordinating care with caregivers and case management Paulina Plunkett PA-C Feb 20, 2018 08:26
[2018-02-20 12:00] VITALS: BP 135/63; PULSE 70; RESP 18; TEMP 98.7; O2SAT 98
[2018-02-20] MEDS: SODIUM CHLOR 0.45% 1000 ML INJ 1,000 ML IV SCH (13:52)
--- NOTE | 2018-02-20 14:21 | HHI.FF ---
Face to Face Verification Diagnosis: (1) Impaired mobility and ADLs (2) Dementia (3) Unsteady gait (4) Generalized weakness (5) Malnutrition (6) Coronary artery disease Physical Therapy Order: Evaluate and Treat, Improve ambulation, Strength and gait training Occupational Therapy Order: Evaluate and Treat, Improve ADL, Gross motor coordination Home Health Nursing Order: Medical education Signs/symptoms of disease process Nursing assessment with vital signs Home Health Aide Order: To Assist In: Bathing and personal care, director home and meal prep Firer Automatic Stoker Order: To Evaluate: Living conditions/environment, Support services Order: To Provide: Long range planning, Community services I have seen patient Alexx Cooper on 02/20/18. My clinical findings support the need for the requested home health care services because: Ltd mobility - disease progression Deconditioned w/ increased weakness Med compliance is questionable Limited ability to care for self Need for psychosocial assistance Impaired cognition/judgement High risk of falls I certify that my clinical findings support that this patient is homebound because: Impaired cognitive ability/safety Unsteady gait/balance Unsafe to leave home unassisted Need for psychosocial assistance Unable to use public transportation Paulina Plunkett PA-C Feb 20, 2018 2:21 pm
[2018-02-20] MEDS ORDERED: SERO25TA PO (14:23)
[2018-02-20] MEDS ORDERED: LEVO.05 PO (14:26)
[2018-02-20 16:00] VITALS: BP 110/55; PULSE 67; RESP 18; TEMP 97.7; O2SAT 97
[2018-02-20 19:49] VITALS: BP 128/60; PULSE 67; RESP 16; TEMP 98.2; O2SAT 97
[2018-02-20] MEDS: traZODone HCL 50 MG TAB PO SCH (20:38)
[2018-02-20 23:28] VITALS: BP 134/65; PULSE 63; RESP 17; TEMP 98.2; O2SAT 97
[2018-02-21 03:40] VITALS: BP 136/65; PULSE 67; RESP 17; TEMP 99.4; O2SAT 97
[2018-02-21] MEDS: ACETAMINOPHEN 500 MG CPLT PO SCH ×2 (04:00→09:39)
[2018-02-21] MEDS ORDERED: LEVOTHYROXINE SODIUM 50 MCG TAB PO SCH (06:00)
[2018-02-21] MEDS: ISOSORBIDE MONONITRATE 60 MG CR TAB (IMDUR) PO SCH (07:03)
[2018-02-21 07:33] VITALS: PULSE 67
--- NOTE | 2018-02-21 08:36 | HHI.DS ---
cc: JoeAngel Luislatha Linder MD Discharge Summary Admission Date Feb 16, 2018 at 9:47 am Discharge Date: Feb 21, 2018 Admitting Diagnosis chest pain (1) Chest pain ICD Code: R07.9 - Chest pain, unspecified Diagnosis: Principal Status: Acute (2) Coronary artery disease ICD Code: I25.10 - Atherosclerotic heart disease of [place] coronary artery without angina pectoris Diagnosis: Secondary Status: Acute (3) Generalized weakness ICD Code: R53.1 - Weakness Diagnosis: Secondary (4) Delirium ICD Code: R41.0 - Disorientation, unspecified Diagnosis: Principal (5) Unsteady gait ICD Code: R26.81 - Unsteadiness on feet Diagnosis: Secondary (6) Impaired mobility and ADLs ICD Code: Z74.09 - Other reduced mobility Diagnosis: Secondary (7) Malnutrition ICD Code: E46 - Unspecified protein-calorie malnutrition Procedures None. Brief History - From Admission Obtained from Admission H&P: 72-year-old male with a history of coronary artery disease, recent NSTEMI admitted on 02/03 with PCI to mid LAD, proximal RCA, however patient became agitated with anesthesia, and decided to hold off on further intervention.. Recently readmitted on 02/09 with severe right shoulder pain. Right shoulder x- ray negative for acute finding, pain thought to be musculoskeletal. Patient subsequently underwent right shoulder steroid injection on 02/14 at his primary care doctor's office with very temporary improvement. According to , patient has been sitting up at night secondary to his right shoulder pain. He denies any chest pain or shortness of breath. He is very shaky, says he is very anxious due to the pain. He denies any lightheadedness or dizziness. Denies fevers or chills. Denies nausea, vomiting, constipation. Patient is uncertain of the date, however says it is not normal for him to know the date. says that patient becomes confused with IV narcotics, Ativan. She does agree with low dose by mouth narcotics for his pain however. CBC/BMP: 02/17/18 1645 02/17/18 1645 Imaging Last Impressions Head CT 02/17/18 0000 Signed Impressions: CONCLUSION: 1. Mild cerebral atrophy. 2. No acute infarct, acute hemorrhage, mass effect or extra-axial fluid collec tions. CT Angiography 02/16/18 0644 Signed Impressions: CONCLUSION: Slight bibasilar atelectasis and/or infiltrate worse on the right, otherwise unremarkable. Chest X-Ray 02/16/18 0503 Signed Impressions: CONCLUSION: Patchy right lung base atelectasis versus consolidation. Cervical Spine CT 02/16/18 0000 Signed Impressions: CONCLUSION: 1. No acute process in the cervical spine PE at Discharge GENERAL: Well-nourished, well-developed elderly male patient in [facility]. SKIN: Warm and dry. No rash. HEENT: Normocephalic. Atraumatic. Pupils equal and round. Mucous membranes pink and moist. CARDIOVASCULAR: Regular rate and rhythm. No murmur appreciated. RESPIRATORY: No accessory muscle use. Clear to auscultation. Breath sounds equal bilaterally. GASTROINTESTINAL: Abdomen soft, non-tender, nondistended. Normoactive bowel sounds x4. MUSCULOSKELETAL: No obvious deformities. Extremities without clubbing, cyanosis , or edema. NEUROLOGICAL: Awake and alert. No obvious cranial nerve deficits. Motor grossly within normal limits. Moving all extremities spontaneously, with generalized weakness. Normal speech. PSYCHIATRIC: Appropriate mood and affect; insight and judgment limited. Pt update on day of discharge The patient is seen in bed, awake, alert, oriented to self and Located Within [facility]. He has no medical complaints including no headache, lightheadedness, dizziness, chest pain, shortness of breath, abdominal or urinary complaints. He is looking forward to going home today. Hospital Course 72-year-old male with history of CAD, recent NSTEMI and PCI, anxiety, depression , pseudodementia, DVT 2014 s/p anticoagulation, presents with right shoulder pain Right shoulder pain, concern for ACS with recent PCI: Shoulder x-ray from previous admission negative for acute findings. Recent steroid injection to right shoulder on 02/14 by PCP with only temporary improvement. CT pulmonary angiogram negative for embolism. Cervical spine CT negative for acute process. Shoulder subsequently nontender. Suspect somatization. No further complaints of shoulder pain Atypical chest pain with hx of CAD s/p Recent PCI. CT pulmonary angiogram negative for acute findings. ACS ruled out with negative serial cardiac enzymes and EKG without acute ischemic changes. Consulted cardiology, patient high risk for PCI, recommended medical management, cardiology signed off. No further chest pains. Acute Psychosis, Anxiety/Depression: Patient intermittently agitated throughout admission. Head CT reviewed, no acute findings. Consulted psychiatry, started on seroquel with good response. Mentation much improved at discharge. Moderate protein calorie malnutrition: BMI 16. Continue Ensure with meals Generalized Weakness: suspect deconditioning secondary to recent hospital admission. Consult PT, recommending rehab, however rehab has been unable to be arranged due to insurance barriers and observation status. The patient's agrees to take the patient home if home health care can be arranged. Discussed with PT, patient will be safe going home with supervision. He has ambulated > 100ft. The does believe the patient's mentation is improving and he is getting stronger. Strongly encouraged the to start looking into long chain beamer placement or in-home caregivers to assist her. Case management assisting with discharge planning. Pt Condition on Discharge: Stable Discharge Disposition: Disch w/ Home Health Serv Discharge Time: > 30 minutes Discharge Instructions DIET: Follow Instructions for: Heart Healthy Diet Additional Diet Instructions: Add Ensure Enlive to meals for nutrition supplement. Activities you can perform: Regular-No Restrictions Follow up Referrals: Cardiology - 1 Week with Angel Luis Diaz MD Neurology - 1 Week with Tristan Esteban MD PhD PCP Follow-up - 1 Week with Cynthia Gregg New Medications: Levothyroxine (Synthroid) 50 Mcg Tab 50 MCG PO DAILY@0600 for Thyroid for 30 Days, #30 TAB Quetiapine (Seroquel) 25 Mg Tab 25 MG PO BID for Control Mood Swing for 30 Days, #60 TAB May skip morning dose if drowsy. Continued Medications: Aspirin (Tgt Aspirin) 81 Mg Chw 81 MG PO DAILY for Blood Clot Prevention, #30 EA 1 Refill Atorvastatin (Atorvastatin) 20 Mg Tab 20 MG PO DAILY for Cholesterol Management, #30 TAB 1 Refill Clopidogrel (Plavix) 75 Mg Tab 75 MG PO DAILY for Blood Clot Prevention, #30 TAB 1 Refill Fluoxetine (Prozac) 10 Mg Cap 10 MG PO DAILY, #30 CAP 0 Refills Isosorbide Mononitrate ER (Isosorbide Mononitrate ER) 60 Mg Tab 60 MG PO DAILY@07 for Chest Pain, #30 TAB 1 Refill Trazodone (Trazodone) 50 Mg Tab 50 MG PO HS for Control Depression, #30 TAB 0 Refills Paulina Plunkett PA-C Feb 21, 2018 8:36 am
[2018-02-21 08:47] VITALS: BP 129/71; PULSE 61; RESP 15; TEMP 98.4; O2SAT 95
[2018-02-21] MEDS: SODIUM CHLORIDE 0.9% FLUSH 10 ML FLUSH IV FLUSH SCH (09:38)
[2018-02-21] MEDS: ASPIRIN 81 MG CHEW TAB PO SCH (09:38)
[2018-02-21] MEDS: ATORVASTATIN 20 MG TAB PO SCH (09:39)
[2018-02-21] MEDS: CLOPIDOGREL 75 MG TAB PO SCH (09:39)
[2018-02-21] MEDS: FLUoxetine HCL 10 MG CAP PO SCH (09:39)
[2018-02-21] MEDS: QUEtiapine FUMARATE 25 MG TAB PO SCH (09:39)
[2018-02-21 11:22] VITALS: PULSE 69
[2018-02-21 13:40] VITALS: BP 108/63; PULSE 77; RESP 15; TEMP 97.7; O2SAT 98
== END 2018-02-21 13:46 | disposition home or self-care (01) ==
LOC: NEPE 04:46 → NEDA 09:47 → NEPFCDU 11:20
PROVIDERS: ADMIT Hospitalist; ATTEND Hospitalist
DX: R07.9 Chest pain, unspecified (principal); I25.10 Atherosclerotic heart disease of native coronary artery without angina pectoris; R53.1 Weakness; R41.0 Disorientation, unspecified; R26.81 Unsteadiness on feet; E44.0 Moderate protein-calorie malnutrition; M25.511 Pain in right shoulder; I25.2 Old myocardial infarction; F41.9 Anxiety disorder, unspecified; F32.9 Major depressive disorder, single episode, unspecified; Z68.1 Body mass index [BMI] 19.9 or less, adult; M54.2 Cervicalgia; R25.1 Tremor, unspecified; F03.90 Unspecified dementia, unspecified severity, without behavioral disturbance, psychotic disturbance, mood disturbance, and anxiety; K40.90 Unilateral inguinal hernia, without obstruction or gangrene, not specified as recurrent; Z86.718 Personal history of other venous thrombosis and embolism; Z95.5 Presence of coronary angioplasty implant and graft; Z79.02 Long term (current) use of antithrombotics/antiplatelets; Z79.82 Long term (current) use of aspirin
CPT/HCPCS: 70450; 71045; 71275; 72125; 80053; 81001; 82550; 82552; 82607; 83690; 83735; 83880; 84443; 84484; 85025; 85379; 85610; 85652; 85730; 93005; 95819; 96360; 96361; 96372; 97110; 97116; 97162; 97167; 97530; 99285; G0378; G8987; G8988; J1630; Q9967

== ENCOUNTER 2018-05-22 18:29 | Inpatient (IN) ==
[2018-05-22] MEDS ORDERED: Sod Chloride 0.9% Inj 1,000 ML IV.SIG ONE (20:20)
--- NOTE | 2018-05-22 21:29 | ED ---
HPI General Chief Complaint: Respiratory Symptoms Stated Complaint: Trouble breathing Time Seen by Provider: 05/22/18 19:55 Source: patient Mode of arrival: ambulatory Limitations: no limitations History of Present Illness MD complaint: anxiety Onset (ago): hour(s) Symptoms: palpitations Severity: moderate Quality: worsening Place: home History of similar episodes: Yes Provoking factors: emotional stress and medication change Relieving factors: nothing Exacerbating factors: thinking about event Associated symptoms: chest pain, shortness of breath and palpitations Related Data Home Medications Medication Instructions Recorded Confirmed clopidogrel [Plavix] 75 mg PO DAILY 05/22/18 05/22/18 venlafaxine [Effexor XR] 75 mg PO DAILY 05/22/18 05/22/18 Allergies Allergy/AdvReac Type Severity Reaction Status Date / Time hydromorphone AdvReac Severe Anxiety Verified 05/22/18 18:40 lorazepam AdvReac Severe Anxiety Verified 05/22/18 18:40 diazepam [From Valium] AdvReac Anxiety Verified 05/22/18 18:40 Review of Systems ROS: all other systems reviewed are negative [facility] Medical History Medical History Anxiety (Acute) Confusion (Acute) Depression (Acute) Heart attack (Acute) OCD (obsessive compulsive disorder) (Acute) Surgical History Surgical History History of hernia surgery (Acute) Hx of heart artery stent (Acute) Social History Social History Substance History: No History of Abuse Second Hand Smoke Exposure: No Smoking Status: Never smoker How Often Do You Have a Drink Containing Alcohol: 2 to 4 times a month Recent Travel in [facility] within the Last 8 Weeks: No Recent Out of Country Travel within the Last 8 Weeks: No Immunization History Tetanus Immunization: Unsure Hx Influenza Vaccine This Season: Yes Exam Narrative Exam Narrative: GENERAL: 72-year-old male well-nourished well-developed, does not appear to be in severe distress SKIN: Focused skin assessment warm/dry. HEAD: Atraumatic. Normocephalic. EYES: Pupils equal and round. No scleral icterus. No injection or drainage. ENT: No nasal bleeding or discharge. Mucous membranes pink and moist. NECK: Trachea midline. No JVD. CARDIOVASCULAR: Regular rate and rhythm. No murmur appreciated. RESPIRATORY: No accessory muscle use. Clear to auscultation. Breath sounds equal bilaterally. GASTROINTESTINAL: Abdomen soft, non-tender, nondistended. Hepatic and splenic margins not palpable. MUSCULOSKELETAL: No obvious deformities. No clubbing. No cyanosis. No edema. NEUROLOGICAL: Awake and alert. No obvious cranial nerve deficits. Motor grossly within normal limits. Normal speech. PSYCHIATRIC: No suicidal or homicidal ideation. Reasonably cooperative. Course Initial Documented Vital Signs Temperature 98.9 F 05/22/18 18:34 Pulse Rate 68 05/22/18 18:34 Respiratory Rate 16 05/22/18 18:34 Blood Pressure 164/97 H 05/22/18 18:34 Pulse Oximetry 100 05/22/18 18:34 Last Documented Vital Signs Temperature 98.9 F 05/22/18 18:34 Pulse Rate 60 05/22/18 21:18 Respiratory Rate 20 05/22/18 21:18 Blood Pressure 140/81 05/22/18 21:18 Pulse Oximetry 98 05/22/18 21:18 Medical Decision Making MDM Narrative Medical decision making narrative: The patient is 72. He has a history of anger depression, OCD and recently underwent coronary catheterization and had a stent placed. He has been compliant with clopidogrel daily. He reports that, his reports that as well, he has been feeling anxious today. At home he took an herbal remedy called anxiolytic on as well as BRIAN and neuro mag as well as homeopathic remedies. Typically the cocktail is effective however was not today and the patient arrives here. The says greatly with the history notes that he has been unable to take Ativan and or any benzo. He takes Effexor at home 75 mg which she states has not been helpful. The patient was taking Seroquel 25 mg at night prior to the coronary event in addition to trazodone. Evidently afterwards they lost efficacy. Patient has been lost to psychiatry follow due to disagreement with the psychiatrist and is scheduled see a psychiatrist the beginning of June. Case was discussed with on-call psychiatrist Dr. Jackson. Patient will go to the [facility] with a plan for admission to geriatric psych depending on results of morning psych screen. Still Act completed by the undersigned. I spoke with Ashley the charge nurse and [facility] who advised me that there will be a bed available. She will be observed the patient has been resting comfortably here. There appears to be a codependent relationship between the patient and his . Medical Screen Exam Complete: Yes Emergency Medical Condition: Yes Lab Data Result diagrams: 05/22/18 21:30 09/16/18 21:30 Lab Results 05/22/18 05/22/18 Range/Units 21:30 21:30 CBC w Diff Auto diff final WBC 6.1 (4.0-11.0) th/mm3 RBC 4.88 (4.50-5.90) mil/mm3 Hgb 14.8 (13.0-17.0) gm/dL Hct 44.3 (39.0-51.0) % MCV 90.7 (80.0-100.0) fL MCH 30.2 (27.0-34.0) pg MCHC 33.3 (32.0-36.0) % RDW 13.1 (11.6-17.2) % Plt Count 145 L (150-450) th/mm3 MPV 7.8 (7.0-11.0) fL Neut % (Auto) 65.8 (16.0-70.0) % Lymph % (Auto) 23.3 (9.0-44.0) % [place] % (Auto) 8.3 H (0.0-8.0) % Eos % (Auto) 1.2 (0.0-4.0) % Baso % (Auto) 1.4 (0.0-2.0) % Neut # (Auto) 4.0 (1.8-7.7) th/mm3 Lymph # (Auto) 1.4 (1.0-4.8) th/mm3 [place] # (Auto) 0.5 (0.0-0.9) th/mm3 Eos # (Auto) 0.1 (0.0-0.4) th/mm3 Baso # (Auto) 0.1 (0.0-0.2) th/mm3 WBC Differential . Differential Comment . Sodium 136 (136-145) meq/L Potassium 4.0 (3.5-5.1) meq/L Chloride 101 (98-107) meq/L Carbon Dioxide 27.1 (21.0-32.0) meq/L Anion Gap 8 (5-15) meq/L BUN 9 (7-18) mg/dL Creatinine 0.76 (0.60-1.30) mg/dL Estimated GFR Greater than 89 (>89) mL/min Random Glucose 93 (74-106) mg/dL Calcium 8.5 (8.5-10.1) mg/dL Total Bilirubin 0.8 (0.2-1.0) mg/dL AST 22 (15-37) U/L ALT 26 (12-78) U/L Alkaline Phosphatase 51 (45-117) U/L Total Protein 7.1 (6.4-8.2) g/dL Albumin 4.1 (3.4-5.0) g/dL TSH 2.580 (0.358-3.740) uIU/mL Serum Alcohol Less than 3 (0-5) mg/dL Discharge Plan Discharge Disposition Patient Disposition: 30 Still Patient Physicians Team ED Provider: Christiano Shah Primary Care Provider: Alexx Gregg Rxs /Orders / Referrals /Forms Prescriptions: No Action venlafaxine [Effexor XR] 75 mg Capsule,Extended Release 24hr 75 mg PO DAILY RF: 0 clopidogrel [Plavix] 75 mg Tablet 75 mg PO DAILY RF: 0 Discharge Interventions Interventions: Vital Signs Last Done: 05/22/18 21:18 Status ED Status: With Doctor
[2018-05-22 21:50] LABS: Baso # (Auto) 0.1 th/mm3 (0.0-0.2); Baso % (Auto) 1.4 % (0.0-2.0); Eos # (Auto) 0.1 th/mm3 (0.0-0.4); Eos % (Auto) 1.2 % (0.0-4.0); Hematocrit 44.3 % (39.0-51.0); Hemoglobin 14.8 gm/dL (13.0-17.0); Lymph # (Auto) 1.4 th/mm3 (1.0-4.8); Lymph % (Auto) 23.3 % (9.0-44.0); Mean Corpuscular HGB Conc 33.3 % (32.0-36.0); Mean Corpuscular Hemoglobin 30.2 pg (27.0-34.0); Mean Corpuscular Volume 90.7 fL (80.0-100.0); Mean Platelet Volume 7.8 fL (7.0-11.0); Mono # (Auto) 0.5 th/mm3 (0.0-0.9); Mono % (Auto) 8.3 % (0.0-8.0); Neut % (Auto) 65.8 % (16.0-70.0); Platelet Count 145 th/mm3 (150-450); Red Blood Count 4.88 mil/mm3 (4.50-5.90); Red Cell Distribution Width 13.1 % (11.6-17.2); White Blood Count 6.1 th/mm3 (4.0-11.0)
[2018-05-22 21:58] LABS: Chloride 101 meq/L (98-107); Sodium 136 meq/L (136-145)
[2018-05-22 22:01] LABS: Calcium 8.5 mg/dL (8.5-10.1)
[2018-05-22 22:02] LABS: Albumin 4.1 g/dL (3.4-5.0); Anion Gap 8 meq/L (5-15); Blood Urea Nitrogen 9 mg/dL (7-18); Carbon Dioxide 27.1 meq/L (21.0-32.0); Glucose,Random 93 mg/dL (74-106)
[2018-05-22 22:05] LABS: Alanine Aminotransferase 26 U/L (12-78); Aspartate Aminotransferase 22 U/L (15-37); Glomerular Filtration Rate Greater Than 89 mL/min (>89)
[2018-05-22 22:06] LABS: Total Protein 7.1 g/dL (6.4-8.2)
[2018-05-22 22:07] LABS: Alkaline Phosphatase 51 U/L (45-117)
[2018-05-22 22:36] LABS: Amphetamine Screen,Urine Neg (Neg); Barbiturate Screen,Urine Neg (Neg); Cannabinoid Screen,Urine Neg (Neg); Cocaine Screen,Urine Neg (Neg)
[2018-05-22 22:43] LABS: Opiate Screen,Urine Neg (Neg)
[2018-05-23] MEDS ORDERED: Aluminum/Magnesium/Simethacone Susp 30 ML UDC PO PRN (09:03)
[2018-05-23] MEDS ORDERED: Bisacodyl 10 MG Supp RECTAL PRN (09:03)
--- NOTE | 2018-05-23 09:06 | ED ---
HPI - Psych - General Source: patient Mode of arrival: ambulatory Limitations: altered mental status - History of Present Illness complaint: altered mental status Onset (ago): unknown Duration: getting worse History of same: Yes Exacerbating factors: medication Context: new medication(s) (Could be contributing to his confusion) Associated psychiatric symptoms: other (Anxiety) Associated symptoms: confusion, shortness of breath, insomnia Treatments prior to arrival: none - General Chief Complaint: Respiratory Symptoms Stated Complaint: Trouble breathing Time Seen by Provider: 05/22/18 19:55 - History of Present Illness HPI Narrative: This is a 72-year-old , male who presents to this facility voluntarily initially for trouble breathing and confusion. The medical provider determine the patient was actually suffering from anxiety and is placed him under a Still act. Patient was seen as a consult by Dr. Montez on February 17 of this year. Reviewed electronic medical record, labs, discussed case with staff. Patient observed pacing in the hallway. Follow-up was conducted and [id number]. Patient is awake, alert, and oriented to self only. His speech is clear but disorganized at times illogical. I am unable to assess him due to his inability to complete a thought. He starts sentences but is unable to finish them. He seems to be grossly confused. His hands are extremely tremulous and appears that his mood and affect are congruently extremely anxious. He seems to become further distressed when I advised him that he is being admitted which leads me to believe he is understanding what he is hearing. Patient lives in [place] with his . He is retired and receives Social Security. He reportedly has a history of anxiety and depression but is only been treated outpatient. He received coronary stents in February of this year and became agitated while under anesthesia. 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 The patient certified real estate appraiser is Dr. red. ERIBERTO Jesus spoke with his who advised that the patient has been placed on Effexor for approximately 6 weeks she has not noticed any improvement. She also states that she has been giving him herbal [id number] treatments which is concerning as it is currently unknown exactly what she has been giving him. She did however advise that he has gotten worse recently. She states that he has not been sleeping and has had increased anxiety. He had adverse reactions to benzodiazepines at a previous hospitalization which reportedly led to increased anxiety. (Aida Rice) - Related Data Home Medications Medication Instructions Recorded Confirmed clopidogrel [Plavix] 75 mg PO DAILY 05/22/18 05/22/18 venlafaxine [Effexor XR] 75 mg PO DAILY 05/22/18 05/22/18 Allergies Allergy/AdvReac Type Severity Reaction Status Date / Time hydromorphone AdvReac Severe Anxiety Verified 05/22/18 18:40 lorazepam AdvReac Severe Anxiety Verified 05/22/18 18:40 diazepam [From Valium] AdvReac Anxiety Verified 05/22/18 18:40 Review of Systems All other systems reviewed negative except as stated in HPI PMFSH - History History Provided By: Patient - Medical History Medical History: Medical History (Last Reviewed 05/23/18 @ 09:22 by COLTON Boyd) Anxiety Confusion Dementia Depression Heart attack Insomnia OCD (obsessive compulsive disorder) - Surgical History Surgical History: Surgical History (Last Reviewed 05/23/18 @ 09:22 by COLTON Boyd) History of hernia surgery Hx of heart artery stent - Tobacco History Second Hand Smoke Exposure: No Tobacco Use In Past 30 Days: No Smoking Status: Never smoker - Alcohol History How Often Do You Have a Drink Containing Alcohol: 2 to 4 times a month - Substance Use History Substance History: No History of Abuse - Travel History Recent Travel in the USA Within the Last 8 Weeks: No Recent Travel Out of the Country Within the Last 8 Weeks: No - Immunization History Tetanus Immunization: Unsure Hx Influenza Vaccine This Season: Yes Psychiatric History - Psychiatric History Psychiatric Treatment History: History of Psychiatric Treatment, History of Community Mental Health Treatment Physical Exam - General Limitations: no limitations General appearance: alert, anxious - Head Head exam: atraumatic - Psychiatric Psychiatric exam: Present: anxious, other (Confused) Mental Status Examination Appearance: Appropriate, Well dressed/well groomed Consciousness: Alert Orientation: Person Motor Activity: Normal gait Speech: Other Language: Other (Patient seems to loses train of thought mid sentence) Fund of Knowledge: Poor Attention and Concentration: Inadequate Memory: Impaired Mood: Anxious Affect: Anxious Thought Process & Associations: Other (Difficult to assess as patient seems unable to complete a thought) Thought Content: Other (Again difficult to assess) Hallucination Type: Other (Unable to assess) Delusion Type: Other (Unable to assess) Suicidal Ideation: No (Unable to assess) Suicidal Plan: No (Unable to assess) Suicidal Intention: No (Unable to assess) Homicidal Ideation: No Homicidal Plan: No Homicidal Intention: No Insight: Poor Judgment: Poor Initial Documented Vital Signs Temperature 98.9 F 05/22/18 18:34 Pulse Rate 68 05/22/18 18:34 Respiratory Rate 16 05/22/18 18:34 Blood Pressure 164/97 H 05/22/18 18:34 Pulse Oximetry 100 05/22/18 18:34 Last Documented Vital Signs Temperature 98.1 F 05/23/18 06:16 Pulse Rate 66 05/23/18 06:16 Respiratory Rate 16 05/23/18 06:16 Blood Pressure 124/69 05/23/18 06:16 Pulse Oximetry 100 05/23/18 06:16 [facility] - Psych - Lab Data Result diagrams: 05/22/18 21:30 05/22/18 21:30 - [facility] Narrative Medical decision making narrative: The patient seemed to have a delirium versus psychosis versus dementia initially , however per his , his condition has continued to worsen. She reports that his Effexor has been ineffective and of concern are the multiple herbal supplements which she states she is providing him. Additionally, his reports he has not slept for several days which would exacerbate delirium or psychosis. Therefore, out of an abundance of caution I will admit him to a locked inpatient psychiatric unit for further evaluation and treatment as deemed necessary. His may be contacted and is agreeable to act as his healthcare surrogate. He will remain under the Still act. (Aida Rice) - Lab Data Lab Results 05/22/18 05/22/18 05/22/18 Range/Units 21:30 21:30 22:15 CBC w Diff Auto diff final WBC 6.1 (4.0-11.0) th/mm3 RBC 4.88 (4.50-5.90) mil/mm3 Hgb 14.8 (13.0-17.0) gm/dL Hct 44.3 (39.0-51.0) % MCV 90.7 (80.0-100.0) fL MCH 30.2 (27.0-34.0) pg MCHC 33.3 (32.0-36.0) % RDW 13.1 (11.6-17.2) % Plt Count 145 L (150-450) th/mm3 MPV 7.8 (7.0-11.0) fL Neut % (Auto) 65.8 (16.0-70.0) % Lymph % (Auto) 23.3 (9.0-44.0) % [place] % (Auto) 8.3 H (0.0-8.0) % Eos % (Auto) 1.2 (0.0-4.0) % Baso % (Auto) 1.4 (0.0-2.0) % Neut # (Auto) 4.0 (1.8-7.7) th/mm3 Lymph # (Auto) 1.4 (1.0-4.8) th/mm3 [place] # (Auto) 0.5 (0.0-0.9) th/mm3 Eos # (Auto) 0.1 (0.0-0.4) th/mm3 Baso # (Auto) 0.1 (0.0-0.2) th/mm3 WBC Differential . Differential Comment . Sodium 136 (136-145) meq/L Potassium 4.0 (3.5-5.1) meq/L Chloride 101 (98-107) meq/L Carbon Dioxide 27.1 (21.0-32.0) meq/L Anion Gap 8 (5-15) meq/L BUN 9 (7-18) mg/dL Creatinine 0.76 (0.60-1.30) mg/dL Estimated GFR Greater than 89 (>89) mL/min Random Glucose 93 (74-106) mg/dL Calcium 8.5 (8.5-10.1) mg/dL Total Bilirubin 0.8 (0.2-1.0) mg/dL AST 22 (15-37) U/L ALT 26 (12-78) U/L Alkaline Phosphatase 51 (45-117) U/L Total Protein 7.1 (6.4-8.2) g/dL Albumin 4.1 (3.4-5.0) g/dL TSH 2.580 (0.358-3.740) uIU/mL Urine Opiates Screen Neg (Neg) Acetaminophen Less than 2.0 L (10.0-30.0) mcg/mL Ur Barbiturates Screen Neg (Neg) Ur Amphetamines Screen Neg (Neg) U Benzodiazepines Scrn Neg (Neg) Urine Cocaine Screen Neg (Neg) U Cannabinoids Screen Neg (Neg) Serum Alcohol Less than 3 (0-5) mg/dL
--- NOTE | 2018-05-23 20:28 | ECG ---
Date Performed: 05/22/2018 Time Performed: 18:48:54 PTAGE: 72 years EKG: SINUS BRADYCARDIA BORDERLINE ECG PREVIOUS TRACING : 02/16/2018 18.55 Compared to previous tracing, the nonspecific T-wave change s have resolved DOCTOR: Cassandra Roberts Interpretating Date/Time 05/23/2018 20:27:31
[2018-05-23] MEDS: Senna/Docusate Sodium 8.6/50 MG Tablet PO SCH (20:45)
[2018-05-24 07:40] LABS: Potassium 3.7 meq/L (3.5-5.1)
[2018-05-24 07:50] LABS: Calcium 8.7 mg/dL (8.5-10.1); Carbon Dioxide 24.6 meq/L (21.0-32.0); Chol/HDL Ratio 2.43 Ratio; HDL Cholesterol 58.7 mg/dL (40.0-60.0)
--- NOTE | 2018-05-24 08:10 | ECG ---
Date Performed: 05/23/2018 Time Performed: 13:30:53 PTAGE: 72 years EKG: Sinus rhythm WITH SINUS ARRHYTHMIA NORMAL ECG Compared to PREVIOUS TRACING the patient is no longer bradycardic PREVIOUS TRACIN05/22/2018 18.48 DOCTOR: Bel Dudley Interpretating Date/Time 05/24/2018 08:09:26
[2018-05-24 10:17] LABS: Hemoglobin A1c 5.4 % (4.3-6.0)
[2018-05-24] MEDS: Senna/Docusate Sodium 8.6/50 MG Tablet PO SCH ×2 (10:35→21:31)
[2018-05-24] MEDS ORDERED: Aluminum/Magnesium/Simethacone Susp 30 ML UDC PO PRN (17:05)
[2018-05-24] MEDS ORDERED: Acetaminophen 325 MG Tablet PO PRN (17:05)
--- NOTE | 2018-05-24 17:17 | P.HPPSY ---
Provisional Diagnosis Admission Date: May 23, 2018 08:58 [place].: Delirium rule out altered mental status unspecified, dementia with behavioral disturbances Competence Certification of Person's Competence To Provide Express and Informed Consent I have personally examined Alexx Cooper, a person being served at [facility] on, May 24, 2018 1710. Express and informed consent means consent voluntarily given in writing, by a competent person, after sufficient explanation and disclosure of the subject matter involved to enable the person to make a knowing and willful decision without any element of force, fraud, deceit, duress, or other form of constraint or coercion. This person is 18 years of age or older, is not now known to be incompetent to consent to treatment with a guardian advocate, and does not have a health care surrogate or proxy currently making medical treatment decisions. I have found this person to be one of the following: [] Competent to provide express and informed consent, as defined above, for voluntary admission to this facility and is competent to provide express and informed consent for treatment. He/she has the consistent capacity to make well reasoned, willful, and knowing decisions concerning his or her medical or mental health treatment. The person fully and consistently understands the purpose of the admission for examination/placement and is fully capable of personally exercising all rights assured [place]xxx] Incompetent to provide express and informed consent to voluntary admission , and this is incompetent to provide express and informed consent to treatment. The person must be transferred to involuntary status and a petition for a guardian advocate filed with the Circuit Court. [] Refusing to provide express and informed consent to voluntary admission but is competent to provide express and informed consent for treatment. The person must be discharged or transferred to involuntary status. Form shall be completed within 24 hours of a person's arrival at the receiving facility and filed in the clinical record of each person: 1. Admitted on a voluntary basis 2. Permitted to provide express and informed consent to his/her own treatment 3. Allowed to transfer from involuntary to voluntary status 4. Prior to permitting a person to consent to his or her own treatment after having been previously found incompetent to consent to treatment. History of Present Illness Capacity: Lacks capacity History of Present Illness: Patient is a 72-year-old white male comes emergency department under Still act signed by a Dr. Shah dated May 22, 2018 1952 hrs. stating severe anxiety unable to use typical anxiolytics/antipsychotics. Urine toxicology negative blood alcohol level negative. Review of EMR shows patient is admitted for similar episode of confusion in February of this year was seen in consultation by Dr. Montez diagnosis of delirium that did improve during his hospital stay. However it appears the patient has deteriorated somewhat in the interval after the period at the present time patient sitting in chair in the dayroom markedly tremulous appears diffusely confused in all 4 spheres. Unable to feed himself Jell-O with a spoon. Further information is impossible to get from him because of his altered mental status. However at this time patient does meet criteria for further assessment under the Still act. I will do first opinion request second opinion. I feel he does not have capacity to make decisions thus I will ask for health care surrogate and guardian advocate. We will the hospitalist consult will us related to this man's condition. We will continue medications per the med reconciliation. We will add Atarax for anxiety otherwise attempt to keep him somewhat med clear at this time - Inpatient Certification I certify that the inpatient services were ordered in accordance with Medicare regulations governing the order. This includes certification that hospital inpatient services are reasonable and necessary and in the case of services not specified as inpatient-only under 42 CFR 419.22(n), that they are appropriately provided as inpatient services in accordance to with the 2-midnight benchmark under 43 CFR 412.3(e) I certify that inpatient psychiatric hospital services are medically necessary. Evaluation and treatment and/or diagnostic testing are expected to improve the patient's condition. The patient needs on a daily basis, active treatment furnished directly by or requiring the supervision of inpatient psychiatric facility personnel. Estimated Total Length of Stay (Days): 7 Plans for Post Hospital Care: Home Review of Systems unobtainable due to mental status PMFSH - History History Provided By: Patient - Medical History Medical History: Medical History (Last Reviewed 05/23/18 @ 09:22 by COLTON Boyd) Anxiety Confusion Dementia Depression Heart attack Insomnia OCD (obsessive compulsive disorder) - Surgical History Surgical History: Surgical History (Last Reviewed 05/23/18 @ 09:22 by COLTON Boyd) History of hernia surgery Hx of heart artery stent - Tobacco History Second Hand Smoke Exposure: No Tobacco Use In Past 30 Days: No Smoking Status: Never smoker - Alcohol History How Often Do You Have a Drink Containing Alcohol: 2 to 4 times a month - Substance Use History Substance History: No History of Abuse - Travel History Recent Travel in the [place] Within the Last 8 Weeks: No Recent Travel Out of the Country Within the Last 8 Weeks: No - Immunization History Tetanus Immunization: Unsure Hx Influenza Vaccine This Season: Yes Quality Measures - Psychiatric History Psychological trauma history: Unknown at this time Violence risk to others in the last 6 months: Low Violence risk to self in the last 6 months: Low - Substance Abuse History Drug or alcohol use in the past 12 months: Unknown at this time - Patient Strengths Patient's strengths (minimum of 2): Patient able access healthcare has supportive family's Medications and Allergies Active Medications: Active Medications Acetaminophen (Tylenol) 650 mg PO Q4H PRN PRN Reason: Pain 1-5 or Temp >101F Al Hydrox/Mg Hydrox/Simethicone (Mag-Al Plus Susp Liq) 30 ml PO Q6H PRN PRN Reason: DYSPEPSIA Al Hydrox/Mg Hydrox/Simethicone (Mag-Al Plus Susp Liq) 30 ml PO Q6H PRN PRN Reason: DYSPEPSIA Al Hydroxide/Mg Hydroxide (Milk Of Magnesia Liq) 30 ml PO Q12H PRN PRN Reason: Mild Constipation Bisacodyl (Dulcolax Supp) 10 mg RECTAL DAILY PRN PRN Reason: SEVERE CONSITIPATION Clopidogrel Bisulfate (Plavix) 75 mg PO DAILY [facility] Last Admin: 05/24/18 10:35 Dose: 75 mg Lactulose (Lactulose Liq) 30 ml PO DAILY PRN PRN Reason: SEVERE CONSITIPATION Senna/Docusate Sodium (Tiffanie-Colace) 1 tab PO BID [facility] Last Admin: 05/24/18 10:35 Dose: 1 tab Sennosides (Senokot) 17.2 mg PO Q12H PRN PRN Reason: Moderate Constipation Sodium Chloride (Ns Flush) 2 ml IV.FLUSH PRN PRN PRN Reason: FLUSH AFTER USING IV ACCESS Allergies Allergy/AdvReac Type Severity Reaction Status Date / Time hydromorphone AdvReac Severe Anxiety Verified 05/22/18 18:40 lorazepam AdvReac Severe Anxiety Verified 05/22/18 18:40 diazepam [From Valium] AdvReac Anxiety Verified 05/22/18 18:40 Home Medications Medication Instructions Recorded Confirmed Type clopidogrel [Plavix] 75 mg PO DAILY 05/22/18 05/22/18 History venlafaxine [Effexor XR] 75 mg PO DAILY 05/22/18 05/22/18 History Results - Labs CBC & Chem 7: 05/22/18 21:30 05/24/18 06:32 Labs: Laboratory Results - last 24 hr 05/24/18 05/24/18 06:32 06:32 Sodium 141 Potassium 3.7 Chloride 104 Carbon Dioxide 24.6 Anion Gap 12 BUN 14 Creatinine 0.87 Estimated GFR 87 L Random Glucose 101 Hemoglobin A1c 5.4 Calcium 8.7 Triglycerides 58 Cholesterol 143 LDL Cholesterol, Calc 73 HDL Cholesterol 58.7 Cholesterol/HDL Ratio 2.43 Exam Vital signs: Vital Signs 05/24/18 06:00 Temperature 98.6 F Pulse Rate 67 Respiratory Rate 16 Blood Pressure 121/68 Pulse Oximetry 100 Intake & Output 05/23/18 05/24/18 05/24/18 18:59 06:59 18:59 Intake Total 0 / 0 Balance 0 / 0 Weight 68.5 kg Intake: Oral 0 / 0 Oral Supplement 0 / 0 Other: # Voids 1 Weight On Admission 68.5 kg Narrative: Patient sitting in chair in day room attempting to eat dinner. He is quite tremulous and anxious verbal responses are delayed has 1/10 sparse and confusing. Mental Status Examination Appearance: Appropriate Consciousness: Alert Orientation: Person Motor Activity: Normal gait Speech: Hesitant, Incoherent Language: Other (Patient seems to loses train of thought mid sentence) Fund of Knowledge: Poor Attention and Concentration: Inadequate Memory: Impaired Mood: Anxious Affect: Other (Slight increased range and intensity) Thought Process & Associations: Other (Difficult to assess as patient seems unable to complete a thought) Thought Content: Other (Again difficult to assess) Hallucination Type: Other (Unable to assess) Delusion Type: Other (Unable to assess) Suicidal Ideation: No (Unable to assess) Suicidal Plan: No (Unable to assess) Suicidal Intention: No (Unable to assess) Homicidal Ideation: No Homicidal Plan: No Homicidal Intention: No Insight: Poor Judgment: Poor Assessment and Plan - Assessment (1) Delirium Code(s): R41.0 - Disorientation, unspecified Status: Acute (2) Dementia with behavioral disturbance Code(s): F03.91 - Unspecified dementia with behavioral disturbance Status: Acute (3) Altered mental status, unspecified Code(s): R41.82 - Altered mental status, unspecified Status: Acute - Plan Plan: Estimated LOS: [5-7] days At this time patient meets criteria for involuntary psychiatric hospitalization I will do first opinion request second opinion they feel he does not have capacity thus I will ask for health care surrogate and guardian advocate. We will have hospitalist consult will us also we will continue his Plavix Per med reconciliation continue Atarax at this time Justification for Continued Inpatient Stay: At this time patient would decompensate a place to a lower level of care Discharge Planning: To be determined hopefully to return home with family Request Healthcare Surrogate/Guardian Advocate?: Yes (3) Altered mental status, unspecified Qualifiers: Altered mental status type: disorientation Qualified Code(s): R41.0 - Disorientation, unspecified
[2018-05-25] MEDS: Senna/Docusate Sodium 8.6/50 MG Tablet PO SCH ×2 (10:51→23:04)
--- NOTE | 2018-05-25 12:05 | P.CONPSY ---
Provisional Diagnosis Admission Date: May 23, 2018 08:58 [place] I.: Delirium rule out altered mental status unspecified, dementia with behavioral disturbances History of Present Illness Service: Psychiatry Primary Care Provider: Alexx Gregg MD Family Provider: Alexx Gregg MD History of Present Illness: Patient is a 72-year-old white male comes emergency department under Still act signed by a Dr. Shah dated May 22, 2018 1952 hrs. stating severe anxiety unable to use typical anxiolytics/antipsychotics. Urine toxicology negative blood alcohol level negative. Review of EMR shows patient is admitted for similar episode of confusion in February of this year was seen in consultation by Dr. Montez diagnosis of delirium that did improve during his hospital stay. However it appears the patient has deteriorated somewhat in the interval after the period at the present time patient sitting in chair in the dayroom markedly tremulous appears diffusely confused in all 4 spheres. Unable to feed himself Jell-O with a spoon. Further information is impossible to get from him because of his altered mental status. However at this time patient does meet criteria for further assessment under the Still act. I will do first opinion request second opinion. I feel he does not have capacity to make decisions thus I will ask for health care surrogate and guardian advocate. We will the hospitalist consult will us related to this man's condition. We will continue medications per the med reconciliation. We will add Atarax for anxiety otherwise attempt to keep him somewhat med clear at this time The patient is a 72-year-old man, domiciled in [place], with psychiatric history of dementia with behavioral disturbances, delirium, has been seen by me before in consultation, who comes this time on the Still act. Consulted to me for second opinion. On my psychiatric evaluation I find a patient that is presently confused, disoriented, he does not know the reason he is hospitalized. He reports being in a good mood, denies distress and pain, denies suicidal and homicidal ideation, denies visual and auditory hallucinations. No agitation, no aggressive behavior, no acute paranoia or psychosis observed at this moment. [facility] - History History Provided By: Patient - Medical History Medical History: Medical History (Last Reviewed 05/23/18 @ 09:22 by COLTON Boyd) Anxiety Confusion Dementia Depression Heart attack Insomnia OCD (obsessive compulsive disorder) - Surgical History Surgical History: Surgical History (Last Reviewed 05/23/18 @ 09:22 by COLTON Boyd) History of hernia surgery Hx of heart artery stent - Tobacco History Second Hand Smoke Exposure: No Tobacco Use In Past 30 Days: No Smoking Status: Never smoker - Alcohol History How Often Do You Have a Drink Containing Alcohol: 2 to 4 times a month - Substance Use History Substance History: No History of Abuse - Travel History Recent Travel in the [place] Within the Last 8 Weeks: No Recent Travel Out of the Country Within the Last 8 Weeks: No - Immunization History Tetanus Immunization: Unsure Hx Influenza Vaccine This Season: Yes Medications and Allergies Active Medications: Active Medications Acetaminophen (Tylenol) 650 mg PO Q4H PRN PRN Reason: Pain 1-5 or Temp >101F Al Hydrox/Mg Hydrox/Simethicone (Mag-Al Plus Susp Liq) 30 ml PO Q6H PRN PRN Reason: DYSPEPSIA Al Hydroxide/Mg Hydroxide (Milk Of Magnesia Liq) 30 ml PO Q12H PRN PRN Reason: Mild Constipation Bisacodyl (Dulcolax Supp) 10 mg RECTAL DAILY PRN PRN Reason: SEVERE CONSITIPATION Clopidogrel Bisulfate (Plavix) 75 mg PO DAILY [facility] Last Admin: 05/25/18 10:50 Dose: 75 mg Diphenhydramine HCl (Benadryl) 50 mg PO HS PRN PRN Reason: INSOMNIA Last Admin: 05/24/18 21:31 Dose: 50 mg Hydroxyzine HCl (Atarax) 50 mg PO Q6H PRN PRN Reason: ANXIETY Last Admin: 05/24/18 19:36 Dose: 50 mg Lactulose (Lactulose Liq) 30 ml PO DAILY PRN PRN Reason: SEVERE CONSITIPATION Senna/Docusate Sodium (Tiffanie-Colace) 1 tab PO BID MICHELLE Last Admin: 05/25/18 10:51 Dose: 1 tab Sennosides (Senokot) 17.2 mg PO Q12H PRN PRN Reason: Moderate Constipation Sodium Chloride (Ns Flush) 2 ml IV.FLUSH PRN PRN PRN Reason: FLUSH AFTER USING IV ACCESS Allergies Allergy/AdvReac Type Severity Reaction Status Date / Time hydromorphone AdvReac Severe Anxiety Verified 05/22/18 18:40 lorazepam AdvReac Severe Anxiety Verified 05/22/18 18:40 diazepam [From Valium] AdvReac Anxiety Verified 05/22/18 18:40 Home Medications Medication Instructions Recorded Confirmed Type clopidogrel [Plavix] 75 mg PO DAILY 05/22/18 05/22/18 History venlafaxine [Effexor XR] 75 mg PO DAILY 05/22/18 05/22/18 History Exam Vital signs: Vital Signs 05/24/18 18:02 05/25/18 05:57 Temperature 98.2 F 97.9 F Pulse Rate 93 H 77 Respiratory Rate 16 17 Blood Pressure 149/84 H 129/64 Pulse Oximetry 97 95 Intake & Output 05/24/18 05/25/18 05/25/18 18:59 06:59 18:59 Intake Total 720 / 720 220 / 220 Balance 720 / 720 220 / 220 Intake: Oral 720 / 720 120 / 120 Oral Supplement 100 / 100 Other: # Voids 4 1 # Bowel Movements 1 Mental Status Examination Appearance: Appropriate Consciousness: Alert Orientation: Person Motor Activity: Normal gait Speech: Hesitant, Incoherent Language: Other (Patient seems to loses train of thought mid sentence) Fund of Knowledge: Poor Attention and Concentration: Inadequate Memory: Impaired Mood: Anxious Affect: Other (Slight increased range and intensity) Thought Process & Associations: Other (Difficult to assess as patient seems unable to complete a thought) Thought Content: Other (Again difficult to assess) Hallucination Type: Other (Unable to assess) Delusion Type: Other (Unable to assess) Suicidal Ideation: No (Unable to assess) Suicidal Plan: No (Unable to assess) Suicidal Intention: No (Unable to assess) Homicidal Ideation: No Homicidal Plan: No Homicidal Intention: No Insight: Poor Judgment: Poor Assessment and Plan - Assessment (1) Delirium Code(s): R41.0 - Disorientation, unspecified Status: Acute (2) Dementia with behavioral disturbance Code(s): F03.91 - Unspecified dementia with behavioral disturbance Status: Acute (3) Altered mental status, unspecified Code(s): R41.82 - Altered mental status, unspecified Status: Acute - Plan Plan: I have seen and examined this patient for second opinion. I reviewed documentation, I completely agree and concur with Dr. Horton's assessment and plan. Justification for Continued Inpatient Stay: Continue admission. Request Healthcare Surrogate/Guardian Advocate?: Yes (3) Altered mental status, unspecified Qualifiers: Altered mental status type: disorientation Qualified Code(s): R41.0 - Disorientation, unspecified
--- NOTE | 2018-05-25 16:14 | P.CON ---
History of Present Illness Primary Care Provider: Alexx Gregg MD Family Provider: Alexx Gregg MD History of Present Illness: 72-year-old male with a history of coronary artery disease, recent NSTEMI with PCI to mid LAD, proximal RCA, however patient became agitated with anesthesia, and decided to hold off on further intervention. He denies any chest pain or shortness of breath. He is very shaky, says he is very anxious due to the pain. He denies any lightheadedness or dizziness. Denies fevers or chills. Denies nausea, vomiting, constipation. Per records the patient becomes confused with IV narcotics, Ativan. Past Medical History History of DVT in 2013 status post anticoagulation Anxiety Depression History of pseudodementia PCI to mid LAD, first diagonal branch on 02/[address] red Past Surgical History Cardiac catheterization on 02/04. Inguinal hernia repair in 2017 Family History Father with possible history of heart disease, alcoholism. Unknown maternal medical history. Social History Patient denies any history of alcohol, tobacco, illicit drug use. Patient lives with in [place]. Review of Systems All other systems reviewed negative except as stated in HPI PMFSH - History History Provided By: Patient - Medical History Medical History: Medical History (Last Reviewed 05/25/18 @ 16:21 by Shalini Carr MD) Anxiety Confusion Dementia Depression Heart attack Insomnia OCD (obsessive compulsive disorder) - Surgical History Surgical History: Surgical History (Last Reviewed 05/25/18 @ 16:21 by Shalini Carr MD) History of hernia surgery Hx of heart artery stent - Family History Family History: Family History (Last Updated 05/25/18 @ 16:29 by Shalini Carr MD) Father Alcoholism Father Heart disease - Tobacco History Second Hand Smoke Exposure: No Tobacco Use In Past 30 Days: No Smoking Status: Never smoker - Alcohol History How Often Do You Have a Drink Containing Alcohol: 2 to 4 times a month - Substance Use History Substance History: No History of Abuse - Travel History Recent Travel in the [place] Within the Last 8 Weeks: No Recent Travel Out of the Country Within the Last 8 Weeks: No - Immunization History Tetanus Immunization: Unsure Hx Influenza Vaccine This Season: Yes Medications and Allergies Active Medications: Active Medications Acetaminophen (Tylenol) 650 mg PO Q4H PRN PRN Reason: Pain 1-5 or Temp >101F Al Hydrox/Mg Hydrox/Simethicone (Mag-Al Plus Susp Liq) 30 ml PO Q6H PRN PRN Reason: DYSPEPSIA Al Hydroxide/Mg Hydroxide (Milk Of Magnesia Liq) 30 ml PO Q12H PRN PRN Reason: Mild Constipation Bisacodyl (Dulcolax Supp) 10 mg RECTAL DAILY PRN PRN Reason: SEVERE CONSITIPATION Clopidogrel Bisulfate (Plavix) 75 mg PO DAILY [facility] Last Admin: 05/25/18 10:50 Dose: 75 mg Hydroxyzine HCl (Atarax) 50 mg PO Q6H PRN PRN Reason: ANXIETY Last Admin: 05/24/18 19:36 Dose: 50 mg Lactulose (Lactulose Liq) 30 ml PO DAILY PRN PRN Reason: SEVERE CONSITIPATION Senna/Docusate Sodium (Tiffanie-Colace) 1 tab PO BID [facility] Last Admin: 05/25/18 10:51 Dose: 1 tab Sennosides (Senokot) 17.2 mg PO Q12H PRN PRN Reason: Moderate Constipation Sodium Chloride (Ns Flush) 2 ml IV.FLUSH PRN PRN PRN Reason: FLUSH AFTER USING IV ACCESS Allergies Allergy/AdvReac Type Severity Reaction Status Date / Time hydromorphone AdvReac Severe Anxiety Verified 05/22/18 18:40 lorazepam AdvReac Severe Anxiety Verified 05/22/18 18:40 diazepam [From Valium] AdvReac Anxiety Verified 05/22/18 18:40 Home Medications Medication Instructions Recorded Confirmed Type clopidogrel [Plavix] 75 mg PO DAILY 05/22/18 05/22/18 History venlafaxine [Effexor XR] 75 mg PO DAILY 05/22/18 05/22/18 History Physical Exam Vital signs: Vital Signs 05/24/18 18:02 05/25/18 05:57 Temperature 98.2 F 97.9 F Pulse Rate 93 H 77 Respiratory Rate 16 17 Blood Pressure 149/84 H 129/64 Pulse Oximetry 97 95 Intake & Output 05/24/18 05/25/18 05/25/18 18:59 06:59 18:59 Intake Total 720 / 720 220 / 220 Balance 720 / 720 220 / 220 Intake: Oral 720 / 720 120 / 120 Oral Supplement 100 / 100 Other: # Voids 4 1 # Bowel Movements 1 Narrative: GENERAL: Frail elderly patient. SKIN: No rashes, ecchymoses or lesions. Cool and dry. HEAD: Atraumatic. Normocephalic. No temporal or scalp tenderness. EYES: Pupils equal round and reactive. Extraocular motions intact. No scleral icterus. No injection or drainage. ENT: Nose without bleeding, purulent drainage or septal hematoma. Throat without erythema, tonsillar hypertrophy or exudate. Uvula midline. Airway patent. NECK: Trachea midline. No JVD or lymphadenopathy. Supple, nontender, no meningeal signs. CARDIOVASCULAR: Regular rate and rhythm without murmurs, gallops, or rubs. RESPIRATORY: Clear to auscultation. Breath sounds equal bilaterally. No wheezes , rales, or rhonchi. GASTROINTESTINAL: Abdomen soft, non-tender, nondistended. No hepato-splenomegaly , or palpable masses. No guarding. MUSCULOSKELETAL: Extremities without clubbing, cyanosis. Trace edema no joint tenderness, effusion. No calf tenderness. Negative Homans sign bilaterally. NEUROLOGICAL: Awake, disoriented. Cranial nerves II through XII intact. Bilateral tremors. Five out of 5 muscle strength in all muscle groups. Normal speech. Assessment and Plan - Plan Anxiety. Depression. Management per psych Confusion: Per records the patient becomes confused with IV narcotics, Ativan. Avoid if possible narcotics and benzos. If not improvement might consider CT head and or neurology consult. CAD with h/o NSTEMI with PCI and stents. Continue home meds Moderate malnutrition. Add Ensure to diet. DVT prophylaxis. ambulation Discussed Condition With Patient, nurse Than you for this consultation
--- NOTE | 2018-05-25 17:06 | P.PNPSY ---
Subjective Remarks: Reviewed electronic medical records and discussed case with staff. Follow-up was conducted in the milieu with ERIBERTO Sarkar present. Patient remains very confused. He states that he feels "pretty good". States that he slept well his appetite's been good. However, when asked about his anxiety he quickly becomes disorganized with his speech and unable to complete his thought process. I spoke with his Phylicia, and obtained consent to start patient on 25 mg of sertraline once daily by mouth. Mental Status Examination Appearance: Appropriate Consciousness: Alert Orientation: Person Motor Activity: Normal gait Speech: Hesitant, Incoherent Language: Other (Patient seems to loses train of thought mid sentence) Fund of Knowledge: Poor Attention and Concentration: Inadequate Memory: Impaired Mood: Anxious Affect: Other (Slight increased range and intensity) Thought Process & Associations: Other (Difficult to assess as patient seems unable to complete a thought) Thought Content: Other (Again difficult to assess) Hallucination Type: Other (Unable to assess) Delusion Type: Other (Unable to assess) Suicidal Ideation: No (Unable to assess) Suicidal Plan: No (Unable to assess) Suicidal Intention: No (Unable to assess) Homicidal Ideation: No Homicidal Plan: No Homicidal Intention: No Insight: Poor Judgment: Poor Assessment and Plan - Assessment (1) Dementia with behavioral disturbance Code(s): F03.91 - Unspecified dementia with behavioral disturbance Status: Acute - Plan Plan: Patient is being started on 25 mg of sertraline by mouth once daily. Once it is a certain that there are no adverse reactions it will be titrated to effect. Justification for Continued Inpatient Stay: Moving this patient to a less restrictive environment would likely result in decompensation. Request Healthcare Surrogate/Guardian Advocate?: Yes
[2018-05-26] MEDS: Sertraline 50 MG Tablet PO SCH (09:18)
[2018-05-26] MEDS: Senna/Docusate Sodium 8.6/50 MG Tablet PO SCH ×2 (09:19→20:17)
--- NOTE | 2018-05-26 13:05 | P.PNIM ---
Subjective Interval history: Patient reports is feeling okay. His is in the room. She reports she will take him home today. No cardiovascular complaints. Physical Exam Vital signs: Vital Signs 05/25/18 17:43 05/26/18 06:24 Temperature 97.4 F L 98.3 F Pulse Rate 67 69 Respiratory Rate 18 16 Blood Pressure 119/59 L 115/59 L Pulse Oximetry 96 98 Intake & Output 05/25/18 05/26/18 05/26/18 18:59 06:59 18:59 Intake Total 480 / 480 540 / 540 240 / 240 Balance 480 / 480 540 / 540 240 / 240 Intake: Oral 480 / 480 340 / 340 240 / 240 Oral Supplement 200 / 200 Other: # Voids 3 1 # Bowel Movements 0 Narrative: GENERAL: This is a well-nourished, well-developed patient, in no apparent distress. CARDIOVASCULAR: Normal rate and regular rhythm without murmurs, gallops, or rubs. RESPIRATORY: Good respiratory efforts. Breath sounds equal and clear to auscultation bilaterally. GASTROINTESTINAL: Abdomen soft, non-tender, non-distended. Normal active bowel sounds MUSCULOSKELETAL: Extremities without cyanosis, or edema. NEURO: Alert & Oriented to self and place but not situation. Moves all ext x4 PSYCH: Mood is flat. Results - Labs CBC & Chem 7: 05/22/18 21:30 05/24/18 06:32 Assessment and Plan - Plan 72-year-old male admitted to the psychiatric unit for dementia with behavioral disturbances. Patient has a history of coronary artery disease. Dementia with behavioral disturbances: Medicine management per psychiatry. History of coronary artery disease: - No cardiovascular complaint at this time. Continue Plavix. Patient appeared to be medically stable. Will sign off. Call or consult with questions.
--- NOTE | 2018-05-26 15:38 | P.PNPSY ---
Subjective Remarks: Reviewed electronic medical records and discussed case with staff. Follow-up was conducted in patient's room with his at his side. When I initially entered the unit this morning patient was paranoid, suspicious, irritable, and naked standing in his room cursing at staff. He was not redirectable for an extended period of time and had to be administered as needed Atarax. When I saw him in his room later with his he was much calmer. I believe that the current acuity level on the 2500 unit is exacerbating his. After consulting with Dr. Rosales in speaking with the patient's Phylicia, and moving him to 4 E. We will continue with the sertraline trial and Atarax as needed for anxiety. Spoke with Leora we are attempting to move the patient's appointment with Dr. Anderson up to next week. Hopefully, the new environment will relieve some of his anxiety and help us to see some results from the medication. Mental Status Examination Appearance: Appropriate Consciousness: Alert Orientation: Person Motor Activity: Normal gait Speech: Hesitant, Incoherent Language: Other (Patient seems to loses train of thought mid sentence) Fund of Knowledge: Poor Attention and Concentration: Inadequate Memory: Impaired Mood: Anxious Affect: Other (Slight increased range and intensity) Thought Process & Associations: Other (Difficult to assess as patient seems unable to complete a thought) Thought Content: Other (Again difficult to assess) Hallucination Type: Other (Unable to assess) Delusion Type: Other (Unable to assess) Suicidal Ideation: No (Unable to assess) Suicidal Plan: No (Unable to assess) Suicidal Intention: No (Unable to assess) Homicidal Ideation: No Homicidal Plan: No Homicidal Intention: No Insight: Poor Judgment: Poor Assessment and Plan - Assessment (1) Dementia with behavioral disturbance Code(s): F03.91 - Unspecified dementia with behavioral disturbance Status: Acute - Plan Plan: Sertraline was initiated today, will monitor for side effects and hope to titrate within a couple of days to target symptoms. Justification for Continued Inpatient Stay: Moving this patient to a less restrictive environment would likely result in decompensation. Request Healthcare Surrogate/Guardian Advocate?: Yes
[2018-05-27] MEDS: Senna/Docusate Sodium 8.6/50 MG Tablet PO SCH ×2 (08:08→20:33)
[2018-05-27] MEDS: Sertraline 50 MG Tablet PO SCH (08:08)
--- NOTE | 2018-05-27 14:08 | P.PNPSY ---
Subjective Remarks: The patient was seen today for psychiatric reevaluation. The patient was widely discussed with nurse practitioner and social media marketing manager. Also collateral information from his was obtained today. On my psychiatric evaluation the patient is calm, cooperative, pleasantly confused. He reports feeling much better today. He denies pain, denies distress, he denies suicidal and homicidal ideation, denies visual and auditory hallucinations. He has not been agitated or aggressive, but walking naked in the unit different occasions in the last 24 hours, he had to be the redirected. He also has been having difficulty sleeping at night. His is very concerned about his incapacity to his sleep and to keep activated overnight. Patient has been compliant with medications, no significant side effects. Mental Status Examination Appearance: Appropriate Consciousness: Alert Orientation: Person Motor Activity: Normal gait Speech: Hesitant, Incoherent Language: Other (Patient seems to loses train of thought mid sentence) Fund of Knowledge: Poor Attention and Concentration: Inadequate Memory: Impaired Mood: Anxious Affect: Other (Slight increased range and intensity) Thought Process & Associations: Other (Difficult to assess as patient seems unable to complete a thought) Thought Content: Other (Again difficult to assess) Hallucination Type: Other (Unable to assess) Delusion Type: Other (Unable to assess) Suicidal Ideation: No (Unable to assess) Suicidal Plan: No (Unable to assess) Suicidal Intention: No (Unable to assess) Homicidal Ideation: No Homicidal Plan: No Homicidal Intention: No Insight: Poor Judgment: Poor Assessment and Plan - Assessment (1) Delirium Code(s): R41.0 - Disorientation, unspecified Status: Acute (2) Dementia with behavioral disturbance Code(s): F03.91 - Unspecified dementia with behavioral disturbance Status: Acute (3) Altered mental status, unspecified Code(s): R41.82 - Altered mental status, unspecified Status: Acute - Plan Plan: Patient presents with a better mood today, is still behavioral dysregulation, with insomnia, I will add trazodone 50 mg at bedtime tonight for insomnia. Justification for Continued Inpatient Stay: Patient has an elevated risk to decompensate at a lower level of care. Request Healthcare Surrogate/Guardian Advocate?: Yes (3) Altered mental status, unspecified Qualifiers: Altered mental status type: disorientation Qualified Code(s): R41.0 - Disorientation, unspecified
[2018-05-27] MEDS: traZODone 50 MG Tablet PO SCH (20:34)
[2018-05-28] MEDS: Sertraline 50 MG Tablet PO SCH (08:35)
[2018-05-28] MEDS: Senna/Docusate Sodium 8.6/50 MG Tablet PO SCH ×2 (08:35→21:22)
--- NOTE | 2018-05-28 13:02 | P.PNPSY ---
Subjective Remarks: The patient was seen today for psychiatric reevaluation. Case was widely discussed with nursing charge. On my evaluation the patient is found in the door of his room. The patient is calm, superficially cooperative, very pleasant. Patient is disoriented in time and place. He uses some confabulatory statements to communicate, but at times he even becomes incoherent. He denies any pain, denies distress, denies depressive symptoms, he denies suicidal and homicidal ideation, denies visual and auditory hallucinations. The patient has been presenting some problems sleeping at night , but his appetite is okay, no agitation or aggressive behavior present. Mental Status Examination Appearance: Appropriate Consciousness: Alert Orientation: Person Motor Activity: Normal gait Speech: Hesitant, Incoherent Language: Other (Patient seems to loses train of thought mid sentence) Fund of Knowledge: Poor Attention and Concentration: Inadequate Memory: Impaired Mood: Anxious Affect: Other (Slight increased range and intensity) Thought Process & Associations: Other (Difficult to assess as patient seems unable to complete a thought) Thought Content: Other (Again difficult to assess) Hallucination Type: Other (Unable to assess) Delusion Type: Other (Unable to assess) Suicidal Ideation: No (Unable to assess) Suicidal Plan: No (Unable to assess) Suicidal Intention: No (Unable to assess) Homicidal Ideation: No Homicidal Plan: No Homicidal Intention: No Insight: Poor Judgment: Poor Assessment and Plan - Assessment (1) Delirium Code(s): R41.0 - Disorientation, unspecified Status: Acute (2) Dementia with behavioral disturbance Code(s): F03.91 - Unspecified dementia with behavioral disturbance Status: Acute (3) Altered mental status, unspecified Code(s): R41.82 - Altered mental status, unspecified Status: Acute - Plan Plan: Patient presents with a better mood today, is still behavioral dysregulation, with insomnia, I will add trazodone 50 mg at bedtime tonight for insomnia. Justification for Continued Inpatient Stay: Patient has an elevated risk to decompensate at a lower level of care. Request Healthcare Surrogate/Guardian Advocate?: Yes (3) Altered mental status, unspecified Qualifiers: Altered mental status type: disorientation Qualified Code(s): R41.0 - Disorientation, unspecified
[2018-05-28] MEDS: traZODone 50 MG Tablet PO SCH (21:23)
[2018-05-29] MEDS: Sertraline 50 MG Tablet PO SCH (08:17)
[2018-05-29] MEDS: Senna/Docusate Sodium 8.6/50 MG Tablet PO SCH ×2 (10:50→20:53)
--- NOTE | 2018-05-29 16:46 | P.PNPSY ---
Subjective Remarks: Pt seen and discussed with staff. He was admitted for agitation at home. He has been irritable today but not aggressive. He slept well last night and he has been compliant with medications and care today. He denies discomfort. No SI/HI Mental Status Examination Appearance: Appropriate Consciousness: Alert Orientation: Person Motor Activity: Normal gait Speech: Unremarkable Language: Other (Patient seems to loses train of thought mid sentence) Fund of Knowledge: Poor Attention and Concentration: Inadequate Memory: Impaired Mood: Appropriate Affect: Flat Thought Process & Associations: Other (concrete) Thought Content: Other (Again difficult to assess) Hallucination Type: Other (Unable to assess) Delusion Type: Other (Unable to assess) Suicidal Ideation: No (Unable to assess) Suicidal Plan: No (Unable to assess) Suicidal Intention: No (Unable to assess) Homicidal Ideation: No Homicidal Plan: No Homicidal Intention: No Insight: Poor Judgment: Poor Assessment and Plan - Assessment (1) Delirium Code(s): R41.0 - Disorientation, unspecified Status: Acute (2) Dementia with behavioral disturbance Code(s): F03.91 - Unspecified dementia with behavioral disturbance Status: Acute (3) Altered mental status, unspecified Code(s): R41.82 - Altered mental status, unspecified Status: Acute - Plan Plan: Pt improving. Continue current tx plan. Justification for Continued Inpatient Stay: risk of decompensation Request Healthcare Surrogate/Guardian Advocate?: Yes (3) Altered mental status, unspecified Qualifiers: Altered mental status type: disorientation Qualified Code(s): R41.0 - Disorientation, unspecified
[2018-05-29 17:35] VITALS: PULSE 56
[2018-05-29] MEDS: traZODone 50 MG Tablet PO SCH (20:53)
[2018-05-30 05:39] VITALS: BP 116/65; RESP 16; TEMP 97.3; O2SAT 94
[2018-05-30] MEDS: Senna/Docusate Sodium 8.6/50 MG Tablet PO SCH (08:45)
[2018-05-30] MEDS: Sertraline 50 MG Tablet PO SCH (08:46)
[2018-05-30] MEDS ORDERED: Sertraline 50 MG Tablet PO SCH (15:30)
--- NOTE | 2018-05-30 15:52 | P.DSPSY ---
Psychiatry Discharge Summary Inpatient Psychiatric care?: Yes Advance Directives: Yes Mental Health Advance Directive: No Health Care Proxy: Yes - Admission Admission Date: May 23, 2018 08:58 - Admission Diagnosis (1) Dementia with behavioral disturbance Code(s): F03.91 - Unspecified dementia with behavioral disturbance Brief History: Patient is a 72-year-old white male comes emergency department under Still act signed by a Dr. Shah dated May 22, 2018 1952 hrs. stating severe anxiety unable to use typical anxiolytics/antipsychotics. Urine toxicology negative blood alcohol level negative. Review of EMR shows patient is admitted for similar episode of confusion in February of this year was seen in consultation by Dr. Montez diagnosis of delirium that did improve during his hospital stay. However it appears the patient has deteriorated somewhat in the interval after the period at the present time patient sitting in chair in the dayroom markedly tremulous appears diffusely confused in all 4 spheres. Unable to feed himself Jell-O with a spoon. Further information is impossible to get from him because of his altered mental status. However at this time patient does meet criteria for further assessment under the Still act. I will do first opinion request second opinion. I feel he does not have capacity to make decisions thus I will ask for health care surrogate and guardian advocate. We will the hospitalist consult will us related to this man's condition. We will continue medications per the med reconciliation. We will add Atarax for anxiety otherwise attempt to keep him somewhat med clear at this time Tobacco Use In Past 30 Days: No How Often Do You Have a Drink Containing Alcohol: 2 to 4 times a month Hospital Course: Patient was admitted to a locked psychiatric unit. All safety precautions were kept in place throughout the stay. The patient was followed by a psychiatric provider on a daily basis as well as being seen by a counselor. Initially, patient was admitted to the 2500 unit where his condition seemed to somewhat deteriorate and he became paranoid. However, after moving him to 4 E and starting him on sertraline his condition improved rapidly. Staff report he has had no behavioral disturbances on 4 E. He has tolerated the medications well with no reported side effects. Upon examination today, his is at his side. Patient presents in a good mood with euthymic affect. His states that he is much improved and his request to take him home at this point. Patient does not appear psychotic nor manic. I can elicit no delusional material. He appears to be at his baseline. He does not pose a danger to himself or others. Therefore, I will be discharging him home into his 's care. He has a follow-up appointment with Dr. Gayle. The was advised to return to him to this facility should his condition deteriorate. - Discharge Discharge Date: 05/30/18 - Discharge Diagnosis (1) Dementia with behavioral disturbance Code(s): F03.91 - Unspecified dementia with behavioral disturbance Status: Acute Discharge Disposition: Home - Discharge Instructions Discharge Diet: Heart Healthy Diet Activities You Can Perform: Regular- No Restrictions - Discharge Time > 30 minutes Mental Status Examination Appearance: Appropriate Consciousness: Alert Orientation: Person Motor Activity: Normal gait Speech: Unremarkable Language: Adequate Fund of Knowledge: Inadequate Attention and Concentration: Easily distracted Memory: Impaired Mood: Appropriate, Good Affect: Appropriate, Euthymic Thought Process & Associations: Other (concrete) Thought Content: Appropriate Hallucination Type: None Delusion Type: None Suicidal Ideation: No (Unable to assess) Suicidal Plan: No (Unable to assess) Suicidal Intention: No (Unable to assess) Homicidal Ideation: No Homicidal Plan: No Homicidal Intention: No Insight: Fair Judgment: Impulsive Discharge/Advance Care Plan - Results Vital Signs: Last Vital Signs Temp 97.3 F L 05/30/18 05:38 Pulse 56 L 05/30/18 05:38 Resp 16 05/30/18 05:38 BP 116/65 05/30/18 05:38 Pulse Ox 94 L 05/30/18 05:38 Lab Results: Laboratory Results Hemoglobin A1c 5.4 % (4.3-6.0) 05/24/18 06:32 Triglycerides 58 mg/dL (42-150) 05/24/18 06:32 Cholesterol 143 mg/dL (120-200) 05/24/18 06:32 LDL Cholesterol, Calc 73 mg/dL (0-99) 05/24/18 06:32 HDL Cholesterol 58.7 mg/dL (40.0-60.0) 05/24/18 06:32 TSH 2.580 uIU/mL (0.358-3.740) 05/22/18 21:30 Summary of Procedures: none Pending Results: None - Medications Number of antipsychotic medications at discharge: 0 - Discharge Care Plan Goals to Promote Your Health: * To prevent worsening of your condition and complications * To maintain your health at the optimal level Directions to Meet Your Goals: Take your medications as prescribed Follow your dietary instruction Follow activity as directed Keep your appointments as scheduled Take your immunizations and boosters as scheduled If your symptoms worsen call your PCP, if no PCP go to Urgent Care Center or Emergency Room For 29/03 questions related to your inpatient stay or results of tests pending at discharge, please contact Dr. Aida Rice [employer] at Smoking is Dangerous to Your Health. Avoid second hand smoking
== END 2018-05-30 16:45 | disposition home or self-care (01) ==
LOC: PHED 18:29 → NEDA 05-23 08:58 → H250 05-23 10:15 → NEDA 05-23 10:45 → H250 05-24 05:27 → H4EA 05-26 19:42
PROVIDERS: ADMIT Psychiatry & Neurology Psychiatry; ATTEND Psychiatry & Neurology Psychiatry